=== PATIENT | male | born 1970 | race Caucasian/White ===

== ENCOUNTER 2016-06-28 21:33 | Inpatient (IN) ==
--- NOTE | 2016-06-28 21:47 | Emergency Department Note ---
Disposition Clinical Impression: Suicidal ideation Disposition: Admitted As Inpatient Condition: Good Psych HPI - General Chief Complaint: ED Psychiatric Symptoms Stated Complaint: SI/HI Time Seen by Provider: 06/28/16 21:45 Source: patient, EMS Mode of arrival: EMS Limitations: no limitations Nursing Notes Reviewed: Yes Vital Signs Reviewed: Yes - History of Present Illness Pt complaint: suicidal ideation Onset (ago): hour(s) Duration: constant History of similar episodes: Yes Improves with: none Worsens with: none Context: significant life stressor Alleged intoxication: No Associated Psychiatric Symptoms: depression, suicidal ideation, homicidal ideation Associated symptoms: Reports: other (Has had a cough for a couple days) Traumatic symptoms: denies traumatic injury Treatments prior to arrival: none Self harm or harm to others: admits thoughts of self harm, has plan, admits thoughts of harming others - Related Data Previous Rx's Medication Instructions Recorded BuPROPion SR (12 HR) [Wellbutrin 150 mg PO QAM #30 tablet.er 05/12/16 SR] HydrOXYzine Pamoate 50 mg PO QID PRN #120 capsule 05/12/16 Mirtazapine [Remeron] 15 mg PO HS #30 tablet 05/12/16 Quetiapine Fumarate [Seroquel] 400 mg PO HS #30 tablet 05/12/16 Allergies Allergy/AdvReac Type Severity Reaction Status Date / Time acetaminophen [From Tylenol] AdvReac Rash Verified 04/15/16 20:22 ibuprofen AdvReac Rash Verified 04/15/16 20:22 All systems ED: reviewed and negative except as stated. Constitutional: Denies: fever, chills ENT ED: Denies: ear pain, throat pain, congestion Cardiovascular: Denies: chest pain, palpitations Respiratory: Reports: cough. Denies: dyspnea Gastrointestinal: Reports: diarrhea. Denies: abdominal pain, nausea, vomiting Musculoskeletal: Denies: back pain Integumentary: Denies: rash Neurological: Denies: headache Past Medical History - Past Medical History Attestation: Yes The following information was validated with the patient. Source: patient, nursing notes reviewed Medical history: Reports: COPD, thyroid disease, other Surgical history: Reports: non-contributory Psychiatric history: Reports: anxiety, bipolar, panic disorder, prior suicide attempt, previous psychiatric hospitalization - Social History Smoking Status: Current every day smoker Smokeless Tobacco Status: No Alcohol use: Reports: occasionally Drug use: Reports: marijuana Physical Exam - General Limitations: no limitations General appearance: alert, in no apparent distress - Head Head exam: atraumatic, normocephalic - Eye Eye exam: Present: normal appearance, PERRL, EOMI - ENT ENT exam: normal exam, normal oropharynx, mucous membranes moist, normal external ear exam - Neck Neck exam: Present: normal inspection, full ROM. Absent: meningismus - Chest Chest inspection: Present: normal inspection, symmetric chest wall rise. Absent : tenderness - Respiratory Respiratory exam: Present: normal lung sounds bilaterally. Absent: respiratory distress, wheezes - Cardiovascular Cardiovascular exam: Present: regular rate, normal rhythm, normal heart sounds - Abdominal Exam Abdominal exam: Present: soft, Non-Tender - Extremities Exam Extremities exam: Present: normal inspection, full ROM. Absent: pedal edema - Back Exam Back exam: Present: normal inspection, full ROM - Neurological Exam Neurological exam: Present: alert, oriented X3 - Psychiatric Psychiatric exam: Present: normal affect, normal mood - Skin Skin exam: Present: warm, dry. Absent: rash Course Course Narrative: Patient presents with sort of suicidal ideation. He plans to cut his wrists. A friend stopped him earlier today from doing so. He reports also having homicidal ideations. He is calm and cooperative for us. Medically I find the patient doing a lot of coughing and he looks like he probably has a history of COPD. I will do a laboratory workup and included chest x-ray. Once he is medically cleared we can consult psychiatry to see him. At this point it is the end of my shift so I will be turning the case over to the night physician and night physician assistant editor. If labs and x-ray to find the patient should be medically cleared for psychiatry. Vital Signs Temperature 97.4 F L 06/28/16 21:35 Pulse Rate 109 06/28/16 21:35 Respiratory Rate 16 06/28/16 21:35 Blood Pressure 124/76 06/28/16 21:35 O2 Sat by Pulse Oximetry 96 06/28/16 21:35 Temperature 99 F 07/01/16 12:00 Pulse Rate 107 07/01/16 12:00 Respiratory Rate 18 07/01/16 12:00 Blood Pressure 98/70 07/01/16 12:00 O2 Sat by Pulse Oximetry 93 L 06/29/16 08:54 Oxygen Delivery Oxygen Delivery Room Air Psych - Lab Data Result diagrams: 06/28/16 21:48 06/28/16 21:48 Lab Results 06/28/16 06/28/16 06/28/16 Range/Units 21:48 21:48 21:54 WBC 6.9 (4.3-11.1) K/mcL RBC 5.38 (4.19-5.50) M/mcL Hgb 15.7 (12.9-16.9) g/dL Hct 44.8 (37.5-50.1) % MCV 83.3 (83.0-100.0) fL MCH 29.2 (28.0-33.3) pg MCHC 35.0 (31.6-35.5) g/dL RDW 13.7 (11.5-14.5) % Plt Count 270 (140-400) K/mcL MPV 8.8 L (9.4-12.4) fL Immature Gran % 0.3 (0-4) % Seg Neutrophils % 37.8 % Lymphocytes % 49.0 % Monocytes % 10.3 % Eosinophils % 2.0 % Basophils % 0.6 % Neutrophils # 2.6 (1.6-8.9) K/mcL Lymphocytes # 3.4 (0.6-4.6) K/mcL Monocytes # 0.7 (0.0-1.3) K/mcL Eosinophils # 0.1 (0.0-0.6) K/mcL Basophils # 0.0 (0.0-0.2) K/mcL Immature Plt Fraction 2.6 (1.1-6.1) % Sodium 144 (136-145) mEq/L Potassium 3.5 (3.5-4.5) mEq/L Chloride 111 H (98-109) mEq/L Carbon Dioxide 20 (19-29) mEq/L BUN 15 (8-26) mg/dL Creatinine 0.62 L (0.72-1.25) mg/dL Est GFR ( Amer) > 60 (> 60) Est GFR (Non-Af Amer) > 60 (> 60) BUN/Creatinine Ratio 24 (6-26) Glucose 97 (70-99) mg/dL Calculated Osmolality 299 (280-300) Calcium 8.7 (8.6-10.8) mg/dL Total Bilirubin 0.6 (0.2-1.2) mg/dL Direct Bilirubin 0.2 (0.0-0.5) mg/dL Indirect Bilirubin 0.4 (0.0-1.2) mg/dL AST 38 H (5-34) Units/L ALT 23 (0-55) Units/L Alkaline Phosphatase 97 (38-126) Units/L Serum Total Protein 7.9 (6.0-8.3) g/dL Albumin 3.7 (3.5-5.0) g/dL Globulin 4.2 H (2.4-3.5) g/dL Albumin/Globulin Ratio 0.9 L (1.1-2.2) TSH 0.000 L (0.350-4.840) mcIU/mL Urine Color Yellow (Yellow) Urine Clarity Clear (Clear) Urine pH 6.5 (5.0-8.0) pH Units Ur Specific [place] < 1.005 L (1.010-1.025) Urine Protein Negative (Neg-Trace) mg/dL Urine Glucose (UA) Normal (Normal) mg/dL Urine Ketones Negative (Negative) mg/dL Urine Blood Negative (Negative) Urine Nitrite Negative (Negative) Urine Bilirubin Negative (Negative) Urine Urobilinogen Normal (Normal) mg/dL Ur Leukocyte Esterase Negative (Negative) Salicylates < 5.0 L (15-30) mg/dL Urine Opiates Screen (Aexhgy=897) ng/mL Acetaminophen < 1.0 L (10-30) mcg/mL Ur Barbiturates Screen (Qjgipc=300) ng/mL Ur Phencyclidine Scrn (Cutoff=25) ng/mL Ur Amphetamines Screen (Hwsoxj=2035) ng/mL U Benzodiazepines Scrn (Ubycrx=789) ng/mL Urine Cocaine Screen (Cutoff= 300) ng/mL U Marijuana (THC) Screen (Cutoff = 50) ng/mL Ethyl Alcohol 302 H (0-10) mg/dL 06/28/16 06/29/16 Range/Units 21:55 08:07 WBC (4.3-11.1) K/mcL RBC (4.19-5.50) M/mcL Hgb (12.9-16.9) g/dL Hct (37.5-50.1) % MCV (83.0-100.0) fL MCH (28.0-33.3) pg MCHC (31.6-35.5) g/dL RDW (11.5-14.5) % Plt Count (140-400) K/mcL MPV (9.4-12.4) fL Immature Gran % (0-4) % Seg Neutrophils % % Lymphocytes % % Monocytes % % Eosinophils % % Basophils % % Neutrophils # (1.6-8.9) K/mcL Lymphocytes # (0.6-4.6) K/mcL Monocytes # (0.0-1.3) K/mcL Eosinophils # (0.0-0.6) K/mcL Basophils # (0.0-0.2) K/mcL Immature Plt Fraction (1.1-6.1) % Sodium (136-145) mEq/L Potassium (3.5-4.5) mEq/L Chloride (98-109) mEq/L Carbon Dioxide (19-29) mEq/L BUN (8-26) mg/dL Creatinine (0.72-1.25) mg/dL Est GFR ( Amer) (> 60) Est GFR (Non-Af Amer) (> 60) BUN/Creatinine Ratio (6-26) Glucose (70-99) mg/dL Calculated Osmolality (280-300) Calcium (8.6-10.8) mg/dL Total Bilirubin (0.2-1.2) mg/dL Direct Bilirubin (0.0-0.5) mg/dL Indirect Bilirubin (0.0-1.2) mg/dL AST (5-34) Units/L ALT (0-55) Units/L Alkaline Phosphatase (38-126) Units/L Serum Total Protein (6.0-8.3) g/dL Albumin (3.5-5.0) g/dL Globulin (2.4-3.5) g/dL Albumin/Globulin Ratio (1.1-2.2) TSH (0.350-4.840) mcIU/mL Urine Color (Yellow) Urine Clarity (Clear) Urine pH (5.0-8.0) pH Units Ur Specific [place] (1.010-1.025) Urine Protein (Neg-Trace) mg/dL Urine Glucose (UA) (Normal) mg/dL Urine Ketones (Negative) mg/dL Urine Blood (Negative) Urine Nitrite (Negative) Urine Bilirubin (Negative) Urine Urobilinogen (Normal) mg/dL Ur Leukocyte Esterase (Negative) Salicylates (15-30) mg/dL Urine Opiates Screen Negative (Bsklji=552) ng/mL Acetaminophen (10-30) mcg/mL Ur Barbiturates Screen Negative (Rwmzud=757) ng/mL Ur Phencyclidine Scrn Negative (Cutoff=25) ng/mL Ur Amphetamines Screen Negative (Siqxry=5292) ng/mL U Benzodiazepines Scrn Negative (Rjzpju=408) ng/mL Urine Cocaine Screen Negative (Cutoff= 300) ng/mL U Marijuana (THC) Screen Negative (Cutoff = 50) ng/mL Ethyl Alcohol 60 H (0-10) mg/dL Psychiatric Medical Clearance - Medical Clearance Checklist Medical History: No Social History Section defined Current Vitals: Last Vital Signs Temp 99 F 07/01/16 12:00 Pulse 107 07/01/16 12:00 Resp 18 07/01/16 12:00 BP 98/70 07/01/16 12:00 Pulse Ox 93 L 06/29/16 08:54 Abnormal Labs: Abnormal lab results MPV 8.8 fL (9.4-12.4) L 06/28/16 21:48 Chloride 111 mEq/L (98-109) H 06/28/16 21:48 Creatinine 0.62 mg/dL (0.72-1.25) L 06/28/16 21:48 AST 38 Units/L (5-34) H 06/28/16 21:48 Globulin 4.2 g/dL (2.4-3.5) H 06/28/16 21:48 Albumin/Globulin Ratio 0.9 (1.1-2.2) L 06/28/16 21:48 TSH 0.000 mcIU/mL (0.350-4.840) L 06/28/16 21:48 Ur Specific [place] < 1.005 (1.010-1.025) L 06/28/16 21:54 Salicylates < 5.0 mg/dL (15-30) L 06/28/16 21:48 Acetaminophen < 1.0 mcg/mL (10-30) L 06/28/16 21:48 Ethyl Alcohol 60 mg/dL (0-10) H 06/29/16 08:07 Statement of Medical Clearance: I have evaluated the patient, reviewed diagnostic information, and certify that the patient's medical condition is sufficiently stable that transfer to the psychiatric unit does not pose a significant risk of deterioration.
[2016-06-28 21:57] LABS: Basophils % 0.6 %; Eosinophils # 0.1 K/mcL (0.0-0.6); Hematocrit 44.8 % (37.5-50.1); Hemoglobin 15.7 g/dL (12.9-16.9); Immature Granulocytes % 0.3 % (0-4); Immature Platelets 2.6 % (1.1-6.1); Lymphocytes # 3.4 K/mcL (0.6-4.6); Mean Corpuscular Hemoglobin 29.2 pg (28.0-33.3); Mean Corpuscular Volume 83.3 fL (83.0-100.0); Mean Platelet Volume 8.8 fL (9.4-12.4); Monocytes # 0.7 K/mcL (0.0-1.3); Monocytes % 10.3 %; Neutrophils # 2.6 K/mcL (1.6-8.9); Platelet Count 270 K/mcL (140-400); Red Blood Count 5.38 M/mcL (4.19-5.50); Red Cell Distribution Width 13.7 % (11.5-14.5); Segmented Neutrophils % 37.8 %
[2016-06-28 22:02] LABS: Bilirubin,Urine Negative (Negative); Blood,Urine Negative (Negative); Clarity,Urine Clear (Clear); Color,Urine Yellow (Yellow); Glucose,Urine (UA) Normal (Normal); Ketones,Urine Negative (Negative); Leukocyte Esterase,Urine Negative (Negative); Nitrite,Urine Negative (Negative); PH,Urine 6.5 pH Units (5.0-8.0); Protein,Urine Negative (Neg-Trace); Specific Gravity,Urine < 1.005 (1.010-1.025); Urobilinogen,Urine Normal (Normal)
[2016-06-28 22:07] LABS: Amphetamine Screen,Urine Negative ng/mL (Cutoff=1000); Barbiturate Screen,Urine Negative ng/mL (Cutoff=200); Benzodiazepines Screen,Urine Negative ng/mL (Cutoff=200); Cannabinoid Screen,Urine Negative ng/mL (Cutoff = 50); Cocaine Screen,Urine Negative ng/mL (Cutoff= 300); Opiate Screen,Urine Negative ng/mL (Cutoff=300); Phencyclidine Screen,Urine Negative ng/mL (Cutoff=25)
[2016-06-28 22:11] LABS: Albumin 3.7 g/dL (3.5-5.0); Albumin/Globulin Ratio 0.9 (1.1-2.2); Alkaline Phosphatase 97 Units/L (38-126); Aspartate Amino Transferase 38 Units/L (5-34); BUN/Creatinine Ratio 24 (6-26); Bilirubin,Direct 0.2 mg/dL (0.0-0.5); Bilirubin,Indirect 0.4 mg/dL (0.0-1.2); Bilirubin,Total 0.6 mg/dL (0.2-1.2); Blood Urea Nitrogen 15 mg/dL (8-26); Calcium 8.7 mg/dL (8.6-10.8); Carbon Dioxide 20 mEq/L (19-29); Chloride 111 mEq/L (98-109); Globulin 4.2 g/dL (2.4-3.5); Glucose 97 mg/dL (70-99); Osmolality,Calculated 299 (280-300); Potassium 3.5 mEq/L (3.5-4.5); Sodium 144 mEq/L (136-145); Total Protein 7.9 g/dL (6.0-8.3); eGFR For African Americans > 60 (> 60); eGFR For Non-African Americans > 60 (> 60)
[2016-06-28 22:23] LABS: Alanine Aminotransferase 23 Units/L (0-55); Ethanol 302 mg/dL (0-10)
[2016-06-28 22:24] LABS: Salicylate < 5.0 mg/dL (15-30)
--- NOTE | 2016-06-29 00:06 | Emergency Department Note ---
START Narrative - START START: I, Gianni Richardson MD, personally performed a history and physical exam of the patient and discussed their management with the midlevel provicer, PAC/CAREER SERVICES REPRESENTATIVE. I reviewed the midlevel provider's note and agree with the documented findings, medical decision making, and plan of care. This patient was signed out at shift change from Dr. Ho. Please refer to his note for complete details of history and physical examination. At shift change the patient is awaiting lab results for medical clearance to be evaluated by the 1 A psych service. Now returned and patient has an alcohol level of 302. This will be repeated in the morning around 8 AM. Patient will be signed out to the [facility] team in the morning. Patient was also noted to have a TSH of 0.000. However he is asymptomatic and not having any symptoms of hyperthyroidism. On my exam his heart rate was 88. On examination patient is a well-developed well-nourished disheveled male in no acute distress. There is no cyanosis or diaphoresis. Breath sounds are equal bilaterally. Heart regular rate and rhythm. Abdomen soft with normal bowel sounds. Patient slept throughout the night with normal vital signs. No issues or complaints. [facility], Dr. Potts and Erika Stern mid-level provider.
[2016-06-29 00:14] LABS: Acetaminophen < 1.0 mcg/mL (10-30)
--- NOTE | 2016-06-29 05:54 | Emergency Department Note ---
START Narrative - START START: This patient was transferred to [place] from swing shift. Please see their earlier documentation for details. Prior to her transfer, patient was initially seen by a swing shift and evaluated. He is awaiting medical clearance for 1 evaluation or suicidal ideation. Past medical history includes substance abuse , and bipolar disorder. Medical workup showed blood alcohol level 302. He will be monitored until his alcohol level is appropriate for behavior health evaluation. He also had a TSH of 0.00. Review of medical records shows that he has a history of Graves' disease. He states the medic for hyperthyroidism at this time. PO Potassium was ordered by me for his potassium of 3.5. Vitals are stable. Patient has been resting comfortably in exam bed throughout the course of the night. Care of this patient will be transferred over to patient further evaluation and medical clearance for 1 and a evaluation. Planned ethanol redraw an approximately 2 hours. <Santosh Pineda P - Last Filed: 06/29/16 05:50> - START START: I, Gianni Richardson MD, personally performed a history and physical exam of the patient and discussed their management with the midlevel provicer, PAC/TREE DRILLER. I reviewed the midlevel provider's note and agree with the documented findings, medical decision making, and plan of care. Please refer to additional START note by me from this emergency department visit. <Gianni Richardson L - Last Filed: 06/29/16 06:48>
--- NOTE | 2016-06-29 11:21 | Emergency Department Note ---
Disposition Clinical Impression: Suicidal ideation Disposition: Admitted As Inpatient Condition: Good Referrals: NO,PCP [Primary Care Provider] - Forms: ED Satisfaction Letter Time of Disposition: 16:29 General Adult HPI - General Chief complaint: ED Psychiatric Symptoms Stated complaint: SI/HI Time Seen by Provider: 06/28/16 21:45 Source: patient, EMS Mode of arrival: EMS Limitations: no limitations - History of Present Illness Pain Scale: 10 - Related Data Previous Rx's Medication Instructions Recorded Methimazole [Tapazole] 10 mg PO DAILY #60 tablet 03/15/16 Albuterol Sulfate [Albuterol 2 puff IH Q4HR PRN #1 hfa.aer.ad 04/15/16 Inhaler] BuPROPion SR (12 HR) [Wellbutrin 150 mg PO QAM #30 tablet.er 05/12/16 SR] HydrOXYzine Pamoate 50 mg PO QID PRN #120 capsule 05/12/16 Mirtazapine [Remeron] 15 mg PO HS #30 tablet 05/12/16 Quetiapine Fumarate [Seroquel] 400 mg PO HS #30 tablet 05/12/16 Benzonatate [Tessalon] 100 mg PO TID #30 capsule 06/04/16 Brompheniramine/Pseudoephed/Dm 5 ml PO Q6H #240 syrup 06/04/16 [Bromfed Dm Cough Syrup] HydrOXYzine 10 mg PO TID #30 tablet 06/04/16 Levofloxacin [Levaquin] 750 mg PO DAILY #10 tablet 06/04/16 PredniSONE 20 mg PO BIDWM #10 tablet 06/04/16 Allergies Allergy/AdvReac Type Severity Reaction Status Date / Time acetaminophen [From Tylenol] AdvReac Rash Verified 04/15/16 20:22 ibuprofen AdvReac Rash Verified 04/15/16 20:22 Constitutional: Denies: fever, chills ENT ED: Denies: ear pain, throat pain, congestion Cardiovascular: Denies: chest pain, palpitations Respiratory: Reports: cough. Denies: dyspnea Gastrointestinal: Reports: diarrhea. Denies: abdominal pain, nausea, vomiting Musculoskeletal: Denies: back pain Integumentary: Denies: rash Neurological: Denies: headache Past Medical History - Past Medical History Medical history: Reports: COPD, thyroid disease, other Surgical history: Reports: non-contributory Psychiatric history: Reports: anxiety, bipolar, panic disorder, prior suicide attempt, previous psychiatric hospitalization - Social History Smoking Status: Current every day smoker Smokeless Tobacco Status: No Alcohol use: Reports: occasionally Drug use: Reports: marijuana Physical Exam - General Limitations: no limitations General appearance: alert, in no apparent distress Course Vital Signs Temperature 97.4 F L 06/28/16 21:35 Pulse Rate 109 06/28/16 21:35 Respiratory Rate 16 06/28/16 21:35 Blood Pressure 124/76 06/28/16 21:35 O2 Sat by Pulse Oximetry 96 06/28/16 21:35 Temperature 97.6 F 06/29/16 08:54 Pulse Rate 97 06/29/16 08:54 Respiratory Rate 18 06/29/16 08:54 Blood Pressure 115/63 06/29/16 08:54 O2 Sat by Pulse Oximetry 93 L 06/29/16 08:54 Oxygen Delivery Oxygen Delivery Room Air Medical Decision Making - Lab Data Result diagrams: 06/28/16 21:48 06/28/16 21:48 Lab Results 06/28/16 06/28/16 06/28/16 Range/Units 21:48 21:48 21:54 WBC 6.9 (4.3-11.1) K/mcL RBC 5.38 (4.19-5.50) M/mcL Hgb 15.7 (12.9-16.9) g/dL Hct 44.8 (37.5-50.1) % MCV 83.3 (83.0-100.0) fL MCH 29.2 (28.0-33.3) pg MCHC 35.0 (31.6-35.5) g/dL RDW 13.7 (11.5-14.5) % Plt Count 270 (140-400) K/mcL MPV 8.8 L (9.4-12.4) fL Immature Gran % 0.3 (0-4) % Seg Neutrophils % 37.8 % Lymphocytes % 49.0 % Monocytes % 10.3 % Eosinophils % 2.0 % Basophils % 0.6 % Neutrophils # 2.6 (1.6-8.9) K/mcL Lymphocytes # 3.4 (0.6-4.6) K/mcL Monocytes # 0.7 (0.0-1.3) K/mcL Eosinophils # 0.1 (0.0-0.6) K/mcL Basophils # 0.0 (0.0-0.2) K/mcL Immature Plt Fraction 2.6 (1.1-6.1) % Sodium 144 (136-145) mEq/L Potassium 3.5 (3.5-4.5) mEq/L Chloride 111 H (98-109) mEq/L Carbon Dioxide 20 (19-29) mEq/L BUN 15 (8-26) mg/dL Creatinine 0.62 L (0.72-1.25) mg/dL Est GFR ( Amer) > 60 (> 60) Est GFR (Non-Af Amer) > 60 (> 60) BUN/Creatinine Ratio 24 (6-26) Glucose 97 (70-99) mg/dL Calculated Osmolality 299 (280-300) Calcium 8.7 (8.6-10.8) mg/dL Total Bilirubin 0.6 (0.2-1.2) mg/dL Direct Bilirubin 0.2 (0.0-0.5) mg/dL Indirect Bilirubin 0.4 (0.0-1.2) mg/dL AST 38 H (5-34) Units/L ALT 23 (0-55) Units/L Alkaline Phosphatase 97 (38-126) Units/L Serum Total Protein 7.9 (6.0-8.3) g/dL Albumin 3.7 (3.5-5.0) g/dL Globulin 4.2 H (2.4-3.5) g/dL Albumin/Globulin Ratio 0.9 L (1.1-2.2) TSH 0.000 L (0.350-4.840) mcIU/mL Urine Color Yellow (Yellow) Urine Clarity Clear (Clear) Urine pH 6.5 (5.0-8.0) pH Units Ur Specific [place] < 1.005 L (1.010-1.025) Urine Protein Negative (Neg-Trace) mg/dL Urine Glucose (UA) Normal (Normal) mg/dL Urine Ketones Negative (Negative) mg/dL Urine Blood Negative (Negative) Urine Nitrite Negative (Negative) Urine Bilirubin Negative (Negative) Urine Urobilinogen Normal (Normal) mg/dL Ur Leukocyte Esterase Negative (Negative) Salicylates < 5.0 L (15-30) mg/dL Urine Opiates Screen (Cwwfyj=429) ng/mL Acetaminophen < 1.0 L (10-30) mcg/mL Ur Barbiturates Screen (Nfusya=275) ng/mL Ur Phencyclidine Scrn (Cutoff=25) ng/mL Ur Amphetamines Screen (Zzdjxs=3804) ng/mL U Benzodiazepines Scrn (Xazbob=537) ng/mL Urine Cocaine Screen (Cutoff= 300) ng/mL U Marijuana (THC) Screen (Cutoff = 50) ng/mL Ethyl Alcohol 302 H (0-10) mg/dL 06/28/16 06/29/16 Range/Units 21:55 08:07 WBC (4.3-11.1) K/mcL RBC (4.19-5.50) M/mcL Hgb (12.9-16.9) g/dL Hct (37.5-50.1) % MCV (83.0-100.0) fL MCH (28.0-33.3) pg MCHC (31.6-35.5) g/dL RDW (11.5-14.5) % Plt Count (140-400) K/mcL MPV (9.4-12.4) fL Immature Gran % (0-4) % Seg Neutrophils % % Lymphocytes % % Monocytes % % Eosinophils % % Basophils % % Neutrophils # (1.6-8.9) K/mcL Lymphocytes # (0.6-4.6) K/mcL Monocytes # (0.0-1.3) K/mcL Eosinophils # (0.0-0.6) K/mcL Basophils # (0.0-0.2) K/mcL Immature Plt Fraction (1.1-6.1) % Sodium (136-145) mEq/L Potassium (3.5-4.5) mEq/L Chloride (98-109) mEq/L Carbon Dioxide (19-29) mEq/L BUN (8-26) mg/dL Creatinine (0.72-1.25) mg/dL Est GFR ( Amer) (> 60) Est GFR (Non-Af Amer) (> 60) BUN/Creatinine Ratio (6-26) Glucose (70-99) mg/dL Calculated Osmolality (280-300) Calcium (8.6-10.8) mg/dL Total Bilirubin (0.2-1.2) mg/dL Direct Bilirubin (0.0-0.5) mg/dL Indirect Bilirubin (0.0-1.2) mg/dL AST (5-34) Units/L ALT (0-55) Units/L Alkaline Phosphatase (38-126) Units/L Serum Total Protein (6.0-8.3) g/dL Albumin (3.5-5.0) g/dL Globulin (2.4-3.5) g/dL Albumin/Globulin Ratio (1.1-2.2) TSH (0.350-4.840) mcIU/mL Urine Color (Yellow) Urine Clarity (Clear) Urine pH (5.0-8.0) pH Units Ur Specific [place] (1.010-1.025) Urine Protein (Neg-Trace) mg/dL Urine Glucose (UA) (Normal) mg/dL Urine Ketones (Negative) mg/dL Urine Blood (Negative) Urine Nitrite (Negative) Urine Bilirubin (Negative) Urine Urobilinogen (Normal) mg/dL Ur Leukocyte Esterase (Negative) Salicylates (15-30) mg/dL Urine Opiates Screen Negative (Vylxou=774) ng/mL Acetaminophen (10-30) mcg/mL Ur Barbiturates Screen Negative (Artuth=471) ng/mL Ur Phencyclidine Scrn Negative (Cutoff=25) ng/mL Ur Amphetamines Screen Negative (Ppxtji=0300) ng/mL U Benzodiazepines Scrn Negative (Sptmoz=231) ng/mL Urine Cocaine Screen Negative (Cutoff= 300) ng/mL U Marijuana (THC) Screen Negative (Cutoff = 50) ng/mL Ethyl Alcohol 60 H (0-10) mg/dL Attestation Statement - Attestation Attestation: Care assumed from [place] nurse practitioner at 11 AM pending [address]A [address] place. Patient sleeping at the time of my exam 16:28: Dr. Ruiz accepts admission to 1A
[2016-06-29] MEDS ORDERED: Haloperidol Lactate 5 MG/ML VIAL IM PRN (18:17)
[2016-06-29] MEDS ORDERED: Mag Hydrox/Al Hydrox/Simeth 30 ML UDC PO PRN (18:17)
[2016-06-29] MEDS ORDERED: MOM Conc 10 ML UD.LIQ PO PRN (18:17)
[2016-06-29] MEDS ORDERED: hydrOXYzine pamoate 25 MG CAPSULE PO PRN (18:34)
[2016-06-29] MEDS: diazePAM 10 MG TABLET PO SCH ×2 (18:58→22:20)
[2016-06-29] MEDS: Nicotine 21 MG PATCH.TD24 TD SCH (19:00)
[2016-06-29] MEDS ORDERED: Mirtazapine 15 MG TABLET PO SCH (21:00)
[2016-06-30] MEDS: diazePAM 10 MG TABLET PO SCH ×6 (02:39→19:19)
[2016-06-30] MEDS: Nicotine 21 MG PATCH.TD24 TD SCH (08:47)
--- NOTE | 2016-06-30 11:41 | Psychiatry History & Physical ---
Date of Encounter: 06/30/16 Time of Encounter: 11:20 History of Present Illness Patient Stated Chief Complaint: I am depressed and suicidal Medicare Admission Attestation: For traditional Medicare patients the provided hospital inpatient services are reasonable and necessary and in the case of services not specified as inpatient -only under 42 CFR 419.22 (n), that they are appropriately provided as inpatient services in accordance 42 CFR 412.3. For Critical Access Hospital the patient may reasonably be expected to be discharged or transferred to a hospital within 96 hours after admission to the Critical Access Hospital. Admitted From: Emergency Dept Plans for Post Hospital Care: Home History of Present Illness: Mr. Owen is a 46 year old male Was well known to us from prior hospitalization he was recently discharged from our facility approximately 6 weeks ago. Patient reported that he did well up until 2 weeks ago when he relapsed on alcohol and since then he has been drinking heavily has been noticing a relapse of his depressive symptoms with LESS helpless feelings mood swings irritability and anger outbursts recurrent suicidal thoughts and ideations. Patient reported that he is making bad choices and decisions and has been contemplating on ending his life. He was unable to contract for safety was posing a threat to himself was intoxicated and it was decided to hospitalize him for safety concerns. Past Med Surg Social Fam HX - Past Medical History Medical history: COPD, thyroid disease, other - Past Psychiatric History Psychiatric history: Reports: depression, previous psychiatric hospitalization Past psychiatric history details: The patient has multiple prior psychiatric hospitalization his last hospitalization was with us approximately 6 weeks ago he reportedly has been compliant with his medications but relapsed on alcohol and has been drinking heavily since last 2 weeks Family psychiatric history: Yes Family Psychiatric History Details: Uncle has schizophrenia Family History of Suicide: Completed Family Suicide History Details: Uncle completed suicide - Past Surgical History Surgical History: non-contributory - Social History Smoking Status: Current every day smoker Smokeless Tobacco Status: No Alcohol use: heavy, recent Drug use: marijuana, other Occupational status: disabled Current living situation: Home Activity Level: Independent ambulation Recent Out of Country Travel Within the Last 8 Weeks: No Exposure or Possible Exposure to Illness During Travel: No Additional social history: Patient is currently he is on Social Security disability. He reported that he has 6 children from 2 prior relationships. He denies any current legal issues. Medications & Allergies BuPROPion SR (12 HR) [Wellbutrin SR] 150 mg PO QAM #30 tablet.er 05/12/16 [Rx] HydrOXYzine Pamoate 50 mg PO QID PRN #120 capsule 05/12/16 [Rx] Mirtazapine [Remeron] 15 mg PO HS #30 tablet 05/12/16 [Rx] Quetiapine Fumarate [Seroquel] 400 mg PO HS #30 tablet 05/12/16 [Rx] Allergies acetaminophen [From Tylenol] Adverse Reaction (Verified 04/15/16 20:22) Rash ibuprofen Adverse Reaction (Verified 04/15/16 20:22) Rash Review of Systems Psychiatric: Reports: depression, anxiety, abnormal sleep pattern, suicidal ideation, hopelessness, irritability, mood swings Mental Status Exam Patient orientation: Yes Person, Yes Time, Yes Place Level of alertness: Alert Patient appearance: Unkempt, Disheveled Behavior: nervous, anxious Psychomotor activity: Slowed Eye contact: Maintains Eye Contact Mood description: Depressed, Anxious Affect description: constricted, dysphoric Speech pattern: Normal rate, Normal rhythm, Normal tone Speech volume: Normal Thought process: Linear, Goal Oriented Thought content: Yes Suicidal ideation Perceptual disturbances: No Auditory hallucinations, No Visual hallucinations Attention span: Capable of Focused Attention Intelligence estimate: Average Judgment: Limited Insight: Minimal Results - Vital Signs Vital signs: Temp Pulse Resp BP Pulse Ox 97.4 F L 75 14 89/59 93 L 06/30/16 09:00 06/30/16 09:00 06/30/16 09:00 06/30/16 09:00 06/29/16 08:54 - Labs Labs: Laboratory Last Values WBC 6.9 K/mcL (4.3-11.1) 06/28/16 21:48 RBC 5.38 M/mcL (4.19-5.50) 06/28/16 21:48 Hgb 15.7 g/dL (12.9-16.9) 06/28/16 21:48 Hct 44.8 % (37.5-50.1) 06/28/16 21:48 MCV 83.3 fL (83.0-100.0) 06/28/16 21:48 MCH 29.2 pg (28.0-33.3) 06/28/16 21:48 MCHC 35.0 g/dL (31.6-35.5) 06/28/16 21:48 RDW 13.7 % (11.5-14.5) 06/28/16 21:48 Plt Count 270 K/mcL (140-400) 06/28/16 21:48 MPV 8.8 fL (9.4-12.4) L 06/28/16 21:48 Immature Gran % 0.3 % (0-4) 06/28/16 21:48 Seg Neutrophils % 37.8 % 06/28/16 21:48 Lymphocytes % 49.0 % 06/28/16 21:48 Monocytes % 10.3 % 06/28/16 21:48 Eosinophils % 2.0 % 06/28/16 21:48 Basophils % 0.6 % 06/28/16 21:48 Neutrophils # 2.6 K/mcL (1.6-8.9) 06/28/16 21:48 Lymphocytes # 3.4 K/mcL (0.6-4.6) 06/28/16 21:48 Monocytes # 0.7 K/mcL (0.0-1.3) 06/28/16 21:48 Eosinophils # 0.1 K/mcL (0.0-0.6) 06/28/16 21:48 Basophils # 0.0 K/mcL (0.0-0.2) 06/28/16 21:48 Immature Plt Fraction 2.6 % (1.1-6.1) 06/28/16 21:48 Sodium 144 mEq/L (136-145) 06/28/16 21:48 Potassium 3.5 mEq/L (3.5-4.5) 06/28/16 21:48 Chloride 111 mEq/L (98-109) H 06/28/16 21:48 Carbon Dioxide 20 mEq/L (19-29) 06/28/16 21:48 BUN 15 mg/dL (8-26) 06/28/16 21:48 Creatinine 0.62 mg/dL (0.72-1.25) L 06/28/16 21:48 Est GFR ( Amer) > 60 (> 60) 06/28/16 21:48 Est GFR (Non-Af Amer) > 60 (> 60) 06/28/16 21:48 BUN/Creatinine Ratio 24 (6-26) 06/28/16 21:48 Glucose 97 mg/dL (70-99) 06/28/16 21:48 Calculated Osmolality 299 (280-300) 06/28/16 21:48 Calcium 8.7 mg/dL (8.6-10.8) 06/28/16 21:48 Total Bilirubin 0.6 mg/dL (0.2-1.2) 06/28/16 21:48 Direct Bilirubin 0.2 mg/dL (0.0-0.5) 06/28/16 21:48 Indirect Bilirubin 0.4 mg/dL (0.0-1.2) 06/28/16 21:48 AST 38 Units/L (5-34) H 06/28/16 21:48 ALT 23 Units/L (0-55) 06/28/16 21:48 Alkaline Phosphatase 97 Units/L (38-126) 06/28/16 21:48 Serum Total Protein 7.9 g/dL (6.0-8.3) 06/28/16 21:48 Albumin 3.7 g/dL (3.5-5.0) 06/28/16 21:48 Globulin 4.2 g/dL (2.4-3.5) H 06/28/16 21:48 Albumin/Globulin Ratio 0.9 (1.1-2.2) L 06/28/16 21:48 TSH 0.000 mcIU/mL (0.350-4.840) L 06/28/16 21:48 Urine Color Yellow (Yellow) 06/28/16 21:54 Urine Clarity Clear (Clear) 06/28/16 21:54 Urine pH 6.5 pH Units (5.0-8.0) 06/28/16 21:54 Ur Specific Lebeau < 1.005 (1.010-1.025) L 06/28/16 21:54 Urine Protein Negative mg/dL (Neg-Trace) 06/28/16 21:54 Urine Glucose (UA) Normal mg/dL (Normal) 06/28/16 21:54 Urine Ketones Negative mg/dL (Negative) 06/28/16 21:54 Urine Blood Negative (Negative) 06/28/16 21:54 Urine Nitrite Negative (Negative) 06/28/16 21:54 Urine Bilirubin Negative (Negative) 06/28/16 21:54 Urine Urobilinogen Normal mg/dL (Normal) 06/28/16 21:54 Ur Leukocyte Esterase Negative (Negative) 06/28/16 21:54 Salicylates < 5.0 mg/dL (15-30) L 06/28/16 21:48 Urine Opiates Screen Negative ng/mL (Huegjt=438) 06/28/16 21:55 Acetaminophen < 1.0 mcg/mL (10-30) L 06/28/16 21:48 Ur Barbiturates Screen Negative ng/mL (Eucuha=923) 06/28/16 21:55 Ur Phencyclidine Scrn Negative ng/mL (Cutoff=25) 06/28/16 21:55 Ur Amphetamines Screen Negative ng/mL (Iqmzni=5962) 06/28/16 21:55 U Benzodiazepines Scrn Negative ng/mL (Lponaa=509) 06/28/16 21:55 Urine Cocaine Screen Negative ng/mL (Cutoff= 300) 06/28/16 21:55 U Marijuana (THC) Screen Negative ng/mL (Cutoff = 50) 06/28/16 21:55 Ethyl Alcohol 60 mg/dL (0-10) H 06/29/16 08:07 Assessment and Plan (1) MDD (major depressive disorder), recurrent severe, without psychosis Current visit: Yes Status: Acute Plan: Admit inpatient for safety and stabilization, Close observation, Suicide Precautions per unit protocol, Encourage participation in unit milieu, Group Therapy, Monitor sleep, Monitor appetite Additional Plan: Patient's Wellbutrin will be discontinued since it will increase his risk of seizures as patient is already going through withdrawal from alcohol. We will increase the Remeron to 30 mg at bedtime for depression and continue the Seroquel 400 mg at bedtime for mood stabilization and adjunct treatment for depression Risks, benefits, side effects, alternatives discussed w/pt: Yes Patient agreeable to treatment: Yes Plans for Post Hospital Care: Home Estimated Length of Stay (Days): 3 (2) Alcohol dependence Current visit: No Status: Acute Plan: Admit inpatient for safety and stabilization, Close observation, Suicide Precautions per unit protocol, Encourage participation in unit milieu, Group Therapy, Monitor sleep, Monitor appetite Additional Plan: We will detox the patient using Valium taper for alcohol withdrawal. Patient is the counselor extensively regarding his alcohol use and his psychological and physiological impact and will be helped to identify triggers and develop a relapse prevention plan Risks, benefits, side effects, alternatives discussed w/pt: Yes Patient agreeable to treatment: Yes Plans for Post Hospital Care: Home Estimated Length of Stay (Days): 3 Qualifiers: Substance use status: in withdrawal Complication of substance-induced condition: uncomplicated Qualified Code(s): F10.230 - Alcohol dependence with withdrawal, uncomplicated
[2016-06-30] MEDS: Mirtazapine 15 MG TABLET PO SCH (20:26)
[2016-06-30] MEDS ORDERED: diazePAM 5 MG TABLET PO ONE (21:30)
[2016-07-01] MEDS: diazePAM 10 MG TABLET PO SCH ×2 (00:39→06:23)
[2016-07-01] MEDS: Nicotine 21 MG PATCH.TD24 TD SCH (08:27)
--- NOTE | 2016-07-01 11:45 | Psychiatry Progress Note ---
Date of Encounter: 07/01/16 Time of Encounter: 11:31 Subjective Interval history: Patient seen and interviewed. Patient is not doing well. Appears very confused and lethargic. The patient has been having withdrawal symptoms. Patient is endorsing restlessness hopeless helpless feelings and is unable to verbalize a safety plan. Patient is counseled extensively regarding his drinking and ended psychological and physiological impact and was encouraged to start working on relapse prevention and safety plan. Review of Systems Psychiatric: Reports: depression, anxiety, abnormal sleep pattern, suicidal ideation, hopelessness, irritability, mood swings Objective: Exam Patient orientation: Yes Person, Yes Time, Yes Place Level of alertness: Alert Patient appearance: Unkempt, Disheveled Behavior: nervous, anxious Psychomotor activity: Slowed Eye contact: Maintains Eye Contact Mood description: Depressed, Anxious Affect description: constricted, dysphoric Speech pattern: Normal rate, Normal rhythm, Normal tone Speech volume: Normal Thought process: Linear, Goal Oriented Thought content: Yes Suicidal ideation Perceptual disturbances: No Auditory hallucinations, No Visual hallucinations Judgment: Limited Insight: Minimal Results - Vital Signs Vital Signs: Temp Pulse Resp BP Pulse Ox 97.8 F 83 14 107/62 93 L 07/01/16 06:00 07/01/16 06:00 07/01/16 06:00 07/01/16 06:00 06/29/16 08:54 Assessment and Plan (1) MDD (major depressive disorder), recurrent severe, without psychosis Current visit: Yes Status: Acute Plan: Continue hospitalization, Close observation, Suicide Precautions per unit protocol, Encourage participation in unit milieu, Group Therapy, Monitor sleep, Monitor appetite Additional Plan: Decrease Seroquel 200 mg at bedtime continue with Remeron 30 mg at bedtime Risks, benefits, side effects, alternatives discussed w/pt: Yes Patient agreeable to treatment: Yes (2) Alcohol dependence Current visit: No Status: Acute Plan: Continue hospitalization, Close observation, Suicide Precautions per unit protocol, Encourage participation in unit milieu, Group Therapy, Monitor sleep, Monitor appetite Additional Plan: We will decrease Valium to 5 mg twice a day. We will also decrease Seroquel to 200 mg at bedtime since patient is groggy and drowsy in the am Risks, benefits, side effects, alternatives discussed w/pt: Yes Patient agreeable to treatment: Yes Qualifiers: Substance use status: in withdrawal Complication of substance-induced condition: uncomplicated Qualified Code(s): F10.230 - Alcohol dependence with withdrawal, uncomplicated Consult Discharge Plan - Plan Referrals: NO,PCP [Primary Care Provider] -
[2016-07-01] MEDS ORDERED: diazePAM 5 MG TABLET PO ONE (15:19)
[2016-07-01] MEDS ORDERED: traMADol 50 MG TABLET PO PRN (16:25)
[2016-07-01] MEDS ORDERED: diazePAM 10 MG TABLET PO SCH (18:32)
[2016-07-01] MEDS: diazePAM 5 MG TABLET PO SCH (20:44)
[2016-07-01] MEDS: Mirtazapine 15 MG TABLET PO SCH (22:13)
[2016-07-02] MEDS: diazePAM 5 MG TABLET PO SCH (08:15)
[2016-07-02] MEDS: Nicotine 21 MG PATCH.TD24 TD SCH (08:15)
--- NOTE | 2016-07-02 11:57 | Psychiatry Progress Note ---
Date of Encounter: 07/02/16 Time of Encounter: 11:55 Subjective Interval history: Patient is here for follow-up. I reviewed records and nursing report. Patient is not doing well physically showing lethargy and confusion is medical status seem unstable with long history of alcohol dependence on possibility of withdrawal delirium. I recommended medical consultation and he is going to be transferred to the medical floor for further treatment and will be followed as he stay on the medical for stabilization. Review of Systems Psychiatric: Reports: anxiety, abnormal sleep pattern, auditory hallucinations, confusion, difficulty concentrating, hopelessness, irritability Objective: Exam Patient orientation: Yes Person Level of alertness: Sedated Patient appearance: Unkempt, Disheveled Behavior: nervous, anxious Psychomotor activity: Slowed Eye contact: Minimal Contact Mood description: Anxious Affect description: constricted, dysphoric Speech pattern: Disorganized, Slurred, Garbled Speech volume: Soft/Quiet Thought process: Thought Blocking, Disorganized, Slowed Thinking Thought content: Yes Suicidal ideation Perceptual disturbances: No Auditory hallucinations, No Visual hallucinations Judgment: Limited Insight: Minimal Results - Vital Signs Vital Signs: Temp Pulse Resp BP Pulse Ox 99.3 F 116 24 91/62 93 L 07/02/16 08:45 07/02/16 08:45 07/02/16 08:45 07/02/16 08:45 06/29/16 08:54 Assessment and Plan (1) Alcohol withdrawal Current visit: Yes Status: Acute Plan: Continue hospitalization, Close observation, Suicide Precautions per unit protocol, Encourage participation in unit milieu, Group Therapy, Monitor sleep, Monitor appetite Qualifiers: Complication of substance-induced condition: with delirium Qualified Code(s ): F10.231 - Alcohol dependence with withdrawal delirium Consult Discharge Plan - Plan Instructions: Depression (DC) Referrals: [facility] [Outside] (Your counselor, Martha Otero, is out of the office until 07/04/2016. She will contact you directly to arrange your next follow-up appointment when she returns to the office.) Xavi Christensen PAC [Physician Keeper Helper] - 07/11/16 3:00 pm (The above appointment is with SHARA Glover at [facility]. This appointment is to establish you with a primary care provider. If you have needs related to psychiatric medication and/or Vivitrol, you will be assessed for these as well. Please arrive 15 minutes early to complete paperwork. Please bring your insurance card, photo ID and list of current medications to your first appointment.)
[2016-07-02 12:01] VITALS: BP 85/52
[2016-07-02] MEDS ORDERED: diazePAM 10 MG TABLET PO SCH (18:45)
--- NOTE | 2016-07-16 14:55 | Discharge Summary ---
Date of Encounter: 07/02/16 Time of Encounter: 12:00 Diagnosis - Discharge Diagnosis (1) Alcohol withdrawal Priority: Secondary Status: Resolved Qualifiers: Complication of substance-induced condition: with delirium Qualified Code(s ): F10.231 - Alcohol dependence with withdrawal delirium (2) Alcohol dependence Priority: Primary Status: Acute Qualifiers: Substance use status: in withdrawal Complication of substance-induced condition: with delirium Qualified Code(s): F10.231 - Alcohol dependence with withdrawal delirium Medications - Discharge Medications Atenolol [Tenormin] 12.5 mg PO DAILY tablet 07/05/16 [Rx] Azithromycin [Zithromax] 1,200 mg PO QWEEK tablet 07/05/16 [Rx] Methimazole [Tapazole] 5 mg PO TID tablet 07/05/16 [Rx] Omeprazole [PriLOSEC] 20 mg PO DAILY@0630 capsule. 07/05/16 [Rx] Sulfamethoxazole/Trimeth DS [Bactrim Ds] 1 each PO DAILY tablet 07/05/16 [Rx] Tramadol HCl [Ultram] 50 mg PO BID PRN 07/05/16 [History] BuPROPion SR (12 HR) [Wellbutrin SR] 150 mg PO QAM #30 tablet.er 07/06/16 [Rx] HydrOXYzine Pamoate 50 mg PO QID PRN #120 capsule 07/06/16 [Rx] LORazepam [Ativan] 0.5 mg PO HS PRN #30 tablet 07/06/16 [Rx] Mirtazapine [Remeron] 30 mg PO HS #60 tablet 07/06/16 [Rx] Quetiapine Fumarate [Seroquel] 200 mg PO HS #60 tablet 07/06/16 [Rx] Allergies acetaminophen [From Tylenol] Adverse Reaction (Verified 04/15/16 20:22) Rash ibuprofen Adverse Reaction (Verified 04/15/16 20:22) Rash Provider Date of admission: 06/29/16 16:37 Primary care physician: PCP NO Consults: 06/29/16 18:17 Consult to Pastoral Services [CONS] Routine Comment: 07/02/16 09:58 Consult to Hospitalist [CONS] Stat Consulting Provider: Hospitalist [place] Reason for Consult: Poss D/T Time Notified: 10:00 Call Completed: Yes Discharging clinician: Ramírez Jacobs Assessment and Plan - Patient/Caregiver Discharge Instructions Diet: regular diet - Follow up Plan Follow up with: [facility] [Outside] (Your counselor, Martha Otero, is out of the office until 07/04/2016. She will contact you directly to arrange your next follow-up appointment when she returns to the office.) Xavi Christensen, PAC [Physician Chemical Tester] - 07/11/16 3:00 pm (The above appointment is with SHARA Glover at [facility]. This appointment is to establish you with a primary care provider. If you have needs related to psychiatric medication and/or Vivitrol, you will be assessed for these as well. Please arrive 15 minutes early to complete paperwork. Please bring your insurance card, photo ID and list of current medications to your first appointment.) Disposition: Home, Self-Care Hospital Course Hospital course: Mr. Owen is a 46 year old male admitted with bipolar disorder and alcohol dependence and withdrawal. His condition is unstable and medicine was consulted and patient would be transferred to medical floor to monitor him for possible alcohol withdrawal delirium and he will be followed after stabilization. - Time Spent with Patient Total time spent providing and/or coordinating discharge services: Less than 30 minutes Quality - Multiple Antipsychotics Patient discharged on 2 or more antipsychotic medications: No Procedures - Procedures Procedures: Medication Management, Crisis Stabilization, Supportive Therapy, Group Therapy, Psychoeducational Therapy Mental Status Exam - Mental Status Exam Patient orientation: Yes Person Level of alertness: Sedated Patient appearance: Unkempt, Disheveled Behavior: nervous, anxious Psychomotor activity: Slowed Eye contact: Minimal Contact Mood description: Anxious Affect description: constricted, dysphoric Speech pattern: Disorganized, Slurred, Garbled Speech Volume: Soft/Quiet Thought process: Thought Blocking, Disorganized, Slowed Thinking Thought Content: Yes Suicidal ideation Perceptual Disturbances: No Auditory hallucinations, No Visual hallucinations Judgment: Limited Insight: Minimal
== END 2016-07-02 12:35 | disposition home or self-care (01) | DRG 751 ==
LOC: EMEROO 21:33 → 1ANU 06-29 16:37 → SUATTDRO 06-29 16:37 → 1ANU 06-29 17:00
PROVIDERS: ADMIT Psychiatry & Neurology Psychiatry; ATTEND Psychiatry & Neurology Psychiatry

== ENCOUNTER 2016-07-02 10:41 | Inpatient (IN) ==
[2016-07-02] MEDS ORDERED: Naloxone 0.4 MG/ML INJ IVP PRN (11:00)
[2016-07-02] MEDS ORDERED: *HR* LORazepam 2 MG/ML VIAL IVP PRN (11:00)
[2016-07-02] MEDS ORDERED: Ondansetron 4 MG/2 ML VIAL IVP PRN (11:00)
--- NOTE | 2016-07-02 11:13 | Internal Med History&Physical ---
Date of Encounter: 07/02/16 Time of Encounter: 09:30 Internal Medicine - H&P: HPI Admitted From: Home History of present illness: Mr. Owen is a 46 year old male Past Med Surg Social Fam HX - Past Medical History Medical history: COPD, thyroid disease, other Psychiatric history: anxiety, bipolar, panic disorder, prior suicide attempt, previous psychiatric hospitalization - Past Surgical History Surgical History: non-contributory - Social History Smoking Status: Current every day smoker Smokeless Tobacco Status: No Alcohol use: occasionally Drug use: marijuana Internal Medicine - H&P: Meds BuPROPion SR (12 HR) [Wellbutrin SR] 150 mg PO QAM #30 tablet.er 05/12/16 [Rx] HydrOXYzine Pamoate 50 mg PO QID PRN #120 capsule 05/12/16 [Rx] Mirtazapine [Remeron] 15 mg PO HS #30 tablet 05/12/16 [Rx] Quetiapine Fumarate [Seroquel] 400 mg PO HS #30 tablet 05/12/16 [Rx] Allergies acetaminophen [From Tylenol] Adverse Reaction (Verified 04/15/16 20:22) Rash ibuprofen Adverse Reaction (Verified 04/15/16 20:22) Rash All Systems PM: A 10-system review of systems was performed and is negative for pertinent findings except as documented above in the HPI.
--- NOTE | 2016-07-02 11:27 | Internal Med History&Physical ---
Date of Encounter: 07/02/16 Time of Encounter: 10:30 Assessment and Plan (1) Tachycardia Status: Acute The basic and a total alcohol withdrawal and versus suspected uncontrolled hyperthyroidism. check EKG (2) Alcohol withdrawal Status: Acute Schedule IV ativan on 3 times a day. cIWA protocol. IV fluids. Qualifiers: Complication of substance-induced condition: with delirium Qualified Code(s ): F10.231 - Alcohol dependence with withdrawal delirium (3) Hyperthyroidism Status: Acute TSH was 0 in Jun 30. Patient with history of hyperthyroidism. check free T4 and free T3. (4) MDD (major depressive disorder), recurrent severe, without psychosis Status: Acute Psychiatry service will be following. Patient is still having suicidal ideations. sitter at bedside. (5) COPD (chronic obstructive pulmonary disease) Status: Acute 06/30: CXR was negative for any acute process nebs Qualifiers: COPD type: chronic bronchitis Chronic bronchitis type: simple Qualified Code(s): J41.0 - Simple chronic bronchitis (6) Tobacco use Status: Chronic (7) HIV infection Status: Acute Internal Medicine - H&P: HPI Chief complaint: Changes in mental status for 3 days. Admitted From: Intrahospital Transfer History of present illness: Mr. Owen is a 46 year old male with past medical history of COPD, hyperthyroidism, HIV infection diagnosed in April 2016 not on any therapy, major depression and heavy alcohol use who was hospitalized in our inpatient psychiatry unit in June 30 for suicidal ideations. Patient is very confused and lethargic, he is unable to provide a detailed history. He has a chronic cough due to smoking. He denies any headache, shortness of breath, chest pain, abdominal pain, bleeding, lower extremity edema. Per nursing staff, patient is somnolent, very confused and unable to ambulate on his own. His oral intake is minimal. His heart rate has been trending up to 116 this morning and as well as his temperature of 99.7. Blood pressure 91/62. TSH 0.000 in Jun 30. Patient will be admitted for IV hydration, suspected alcohol withdrawal and uncontrolled hyperthyroidism. Past Med Surg Social Fam HX - Past Medical History Medical history: COPD, thyroid disease, other Psychiatric history: anxiety, bipolar, panic disorder, prior suicide attempt, previous psychiatric hospitalization - Past Surgical History Surgical History: non-contributory - Social History Smoking Status: Current every day smoker Smokeless Tobacco Status: No Alcohol use: occasionally Drug use: marijuana Internal Medicine - H&P: Meds BuPROPion SR (12 HR) [Wellbutrin SR] 150 mg PO QAM #30 tablet.er 05/12/16 [Rx] HydrOXYzine Pamoate 50 mg PO QID PRN #120 capsule 05/12/16 [Rx] Mirtazapine [Remeron] 15 mg PO HS #30 tablet 05/12/16 [Rx] Quetiapine Fumarate [Seroquel] 400 mg PO HS #30 tablet 05/12/16 [Rx] Allergies acetaminophen [From Tylenol] Adverse Reaction (Verified 04/15/16 20:22) Rash ibuprofen Adverse Reaction (Verified 04/15/16 20:22) Rash All Systems PM: A 10-system review of systems was performed and is negative for pertinent findings except as documented above in the HPI. - Constitutional General appearance: Present: A&O X 1, no acute distress Exam: Poor hygiene. Somnolent but he arouses to verbal stimuli and answers some questions. He is able to sit up on the edge of bed with help. - Head Head exam: Present: atraumatic - Eye Eye exam: Present: PERRL. Absent: sclera anicteric - Neck Neck exam general surgery: Absent: lymphadenopathy - Respiratory Respiratory exam: Present: rhonchi - Cardiovascular Cardiovascular exam: Present: tachycardia - GI/Abdominal GI/Abdominal exam: Present: normal bowel sounds, soft. Absent: distended, tenderness - Extremities Exam Extremities exam: Absent: joint swelling, pedal edema, tenderness - Back Exam Back exam: Absent: CVA tenderness (L), CVA tenderness (R) - Skin Skin exam: Present: dry
[2016-07-02] MEDS ORDERED: Ringers Solution, Lactated 1,000 ML IVC ONE (11:32)
[2016-07-02 13:23] LABS: Basophils % 0.2 %; Eosinophils # 0.1 K/mcL (0.0-0.6); Eosinophils % 2.4 %; Hematocrit 40.5 % (37.5-50.1); Hemoglobin 14.2 g/dL (12.9-16.9); Immature Granulocytes % 0.2 % (0-4); Lymphocytes # 1.2 K/mcL (0.6-4.6); Lymphocytes % 25.6 %; Mean Corpuscular HGB Conc 35.1 g/dL (31.6-35.5); Mean Corpuscular Hemoglobin 29.2 pg (28.0-33.3); Mean Corpuscular Volume 83.3 fL (83.0-100.0); Mean Platelet Volume 9.3 fL (9.4-12.4); Monocytes # 0.5 K/mcL (0.0-1.3); Neutrophils # 2.7 K/mcL (1.6-8.9); Platelet Count 179 K/mcL (140-400); Red Blood Count 4.86 M/mcL (4.19-5.50); Red Cell Distribution Width 13.1 % (11.5-14.5); Segmented Neutrophils % 60.6 %
[2016-07-02 13:40] LABS: Alanine Aminotransferase 14 Units/L (0-55); Albumin 2.9 g/dL (3.5-5.0); Albumin/Globulin Ratio 0.8 (1.1-2.2); Alkaline Phosphatase 83 Units/L (38-126); Aspartate Amino Transferase 19 Units/L (5-34); BUN/Creatinine Ratio 17 (6-26); Bilirubin,Total 1.4 mg/dL (0.2-1.2); Blood Urea Nitrogen 12 mg/dL (8-26); Calcium 8.9 mg/dL (8.6-10.8); Carbon Dioxide 22 mEq/L (19-29); Chloride 104 mEq/L (98-109); Globulin 3.8 g/dL (2.4-3.5); Glucose 197 mg/dL (70-99); Magnesium 1.6 mg/dL (1.6-2.6); Osmolality,Calculated 283 (280-300); Phosphorous 4.5 mg/dL (2.3-4.7); Potassium 3.9 mEq/L (3.5-4.5); Sodium 134 mEq/L (136-145); Total Protein 6.7 g/dL (6.0-8.3); eGFR For African Americans > 60 (> 60); eGFR For Non-African Americans > 60 (> 60)
[2016-07-02] MEDS: Ringers Solution, Lactated 1,000 ML IVC SCH (14:49)
[2016-07-02] MEDS: Ipratropium Neb 0.5 MG NEBULIZER IH SCH ×2 (16:44→22:25)
[2016-07-02] MEDS: Levalbuterol Neb 0.63 MG/3 ML IH SCH ×2 (16:45→22:25)
[2016-07-02] MEDS: predniSONE 10 MG TABLET PO SCH (17:03)
[2016-07-02] MEDS: methIMAzole 5 MG TABLET PO SCH ×2 (17:03→21:48)
[2016-07-02] MEDS: *HR* LORazepam 2 MG/ML VIAL IVP SCH (17:03)
[2016-07-03] MEDS: *HR* LORazepam 2 MG/ML VIAL IVP SCH ×3 (00:12→15:45)
[2016-07-03] MEDS: Ringers Solution, Lactated 1,000 ML IVC SCH ×3 (01:12→22:49)
[2016-07-03] MEDS: Ipratropium Neb 0.5 MG NEBULIZER IH SCH ×4 (04:44→21:11)
[2016-07-03] MEDS: Levalbuterol Neb 0.63 MG/3 ML IH SCH ×4 (04:44→21:11)
[2016-07-03 04:54] LABS: Basophils % 0.2 %; Eosinophils % 0.2 %; Hematocrit 40.2 % (37.5-50.1); Immature Granulocytes % 0.2 % (0-4); Lymphocytes # 1.2 K/mcL (0.6-4.6); Mean Corpuscular HGB Conc 34.8 g/dL (31.6-35.5); Mean Corpuscular Volume 83.4 fL (83.0-100.0); Mean Platelet Volume 9.3 fL (9.4-12.4); Monocytes # 0.4 K/mcL (0.0-1.3); Monocytes % 7.9 %; Neutrophils # 3.3 K/mcL (1.6-8.9); Platelet Count 203 K/mcL (140-400); Red Blood Count 4.82 M/mcL (4.19-5.50); Red Cell Distribution Width 12.9 % (11.5-14.5); Segmented Neutrophils % 67.5 %
[2016-07-03 05:14] LABS: BUN/Creatinine Ratio 22 (6-26); Blood Urea Nitrogen 11 mg/dL (8-26); Calcium 9.1 mg/dL (8.6-10.8); Carbon Dioxide 23 mEq/L (19-29); Chloride 105 mEq/L (98-109); Glucose 113 mg/dL (70-99); Magnesium 1.9 mg/dL (1.6-2.6); Osmolality,Calculated 282 (280-300); Phosphorous 4.6 mg/dL (2.3-4.7); Potassium 4.5 mEq/L (3.5-4.5); Sodium 136 mEq/L (136-145); eGFR For African Americans > 60 (> 60); eGFR For Non-African Americans > 60 (> 60)
[2016-07-03 05:36] LABS: Triiodothyronine (T3) Free 4.32 pg/mL (1.71-3.71)
[2016-07-03] MEDS: predniSONE 10 MG TABLET PO SCH (09:01)
[2016-07-03] MEDS: methIMAzole 5 MG TABLET PO SCH ×3 (09:02→21:59)
--- NOTE | 2016-07-03 11:37 | Internal Med Progress Note ---
Date of Encounter: 07/03/16 Time of Encounter: 10:20 - Assessment and plan (1) COPD (chronic obstructive pulmonary disease) Current Visit: Yes Status: Chronic Assessment and plan: Not in exacerbation Alb/Duo nebs prn D/C prednisone Qualifiers: COPD type: chronic bronchitis Chronic bronchitis type: simple Qualified Code(s): J41.0 - Simple chronic bronchitis (2) HIV infection Current Visit: Yes Status: Chronic Assessment and plan: Will benefit from Infectious disease consultation Patient has no PCP and is not being followed by anyone Send CD4 count to start prophylaxis if necessary (3) Hyperthyroidism Current Visit: Yes Status: Acute Assessment and plan: No evidence of thyroid storm d/c steroids No HTN, mild tachycardia Continue methimazole Obtain thyroid USS Continue atenolol Will need further outpatient work up and follow up (4) Tachycardia Current Visit: Yes Status: Resolved Assessment and plan: Resolved, possibly from administration of IVF/Starting methimazole/ativan Taper off ativan slowly (5) Alcohol withdrawal Current Visit: Yes Status: Acute Assessment and plan: Patient on q8hr lorazepam Continue, plan to titrate off slowly Continue CIWA protocol Qualifiers: Complication of substance-induced condition: with delirium Qualified Code(s ): F10.231 - Alcohol dependence with withdrawal delirium (6) MDD (major depressive disorder), recurrent severe, without psychosis Current Visit: Yes Status: Acute (7) Suicidal ideation Current Visit: Yes Status: Acute (8) Tobacco use Current Visit: Yes Status: Chronic - Subjective Interval history: 46 year old male with past medical history of COPD, hyperthyroidism, HIV/AIDS admitted initially to Psych unit for suicidal ideation He was transferred to medicine for management of persistent tachycardia with concerns for hyperthyroidism and possible alcohol withdrawal Patient seen at bedside, sleeping but rousable Reports recent HIV infection diagnosis , does not know his CD4 count, nor why he is not on HAART He has been started on IV fluids and methimazole, as well as atenolol and prednisone His heart rate has improved Patient denies previous alcohol withdrawal symptoms nor ever been intubated for DTs He denies any new complains at this time - Constitutional Vitals: Temp Pulse Resp BP Pulse Ox 97.9 F 98 14 96/60 96 07/03/16 10:51 07/03/16 10:51 07/03/16 10:51 07/03/16 10:51 07/03/16 10:51 General appearance: Present: disheveled, A&O X 2, pleasant, no acute distress - Head Head exam: Present: atraumatic - Eye Eye exam: Present: PERRL, conjuntiva pink, sclera anicteric - ENT ENT exam: Present: mucous membranes moist - Neck Neck exam general surgery: Present: normal inspection - Respiratory Respiratory exam: Present: CTAB - Cardiovascular Cardiovascular exam: Present: RRR, +S1, +S2. Absent: systolic murmur, tachycardia - GI/Abdominal GI/Abdominal exam: Present: normal bowel sounds, soft, no peritoneal signs. Absent: tenderness - Extremities Exam Extremities exam: Absent: pedal edema Additional comments: NO tremors - Neurological Exam Neurological exam: Present: alert, no focal deficits, strengths equal and symetr throughout. Absent: pronater drift, facial droop, speech deficit Internal Medicine: Result - Labs CBC & Chem 7: 07/03/16 04:22 07/03/16 04:22 Labs: Short CBC 07/02/16 07/03/16 Range/Units 13:06 04:22 WBC 4.5 4.8 (4.3-11.1) K/mcL Hgb 14.2 D 14.0 (12.9-16.9) g/dL Hct 40.5 40.2 (37.5-50.1) % Plt Count 179 203 (140-400) K/mcL Neutrophils # 2.7 3.3 (1.6-8.9) K/mcL BMP 07/02/16 07/03/16 13:06 04:22 Sodium 134 L 136 Potassium 3.9 4.5 Chloride 104 105 Carbon Dioxide 22 23 BUN 12 11 Creatinine 0.70 L 0.50 L Glucose 197 H 113 H Calcium 8.9 9.1 Liver Function 07/02/16 Range/Units 13:06 Total Bilirubin 1.4 H (0.2-1.2) mg/dL AST 19 (5-34) Units/L ALT 14 (0-55) Units/L Alkaline Phosphatase 83 (38-126) Units/L Albumin 2.9 L (3.5-5.0) g/dL - VTE Documentation of Mechanical Device: Venous foot pump, device
--- NOTE | 2016-07-03 15:42 | Consult Note ---
Date of Encounter: 07/03/16 Time of Encounter: 15:39 Assessment & Recommendation (1) Alcohol withdrawal Current visit: Yes Status: Acute Assessment & Recommendation: Patient is under medical care for alcohol withdrawal delirium is on CIWA and making progress at this time his psychiatric condition is stable without any acute symptoms his delirious state is result of alcohol withdrawal delirium. at This time we recommend continuing medical treatment and stabilization and will follow-up with you thank you. Qualifiers: Complication of substance-induced condition: with delirium Qualified Code(s ): F10.231 - Alcohol dependence with withdrawal delirium History of Present Illness Patient: known to practice within the last 3 years Requesting Physician: Nickolas Branch MD Reason for consult: Depression and alcohol withdrawal History of present illness: Mr. Owen is a 46 year old male admitted initially to [facility] for evaluation treatment to suicidal ideation and alcohol withdrawal patient experienced symptoms of alcohol withdrawal and was tachycardia hypothermia and delirium and medical service was consulted and he was moved to the medical floor for further treatment on review of the record he is being treated for COPD, cholesterol hyperthyroidism and HIV status being evaluated currently he is on C was still for alcohol withdrawal and making some progress. CC: Nickolas Branch MD Past Med Surg Social Fam HX - Past Medical History Medical history: COPD, HIV/AIDS, thyroid disease, other - Past Psychiatric History Psychiatric history: Reports: anxiety, depression, previous psychiatric hospitalization Family psychiatric history: Unknown Family History of Suicide: Unknown - Past Surgical History Surgical History: non-contributory - Social History Smoking Status: Current every day smoker Smokeless Tobacco Status: No Alcohol use: heavy Drug use: marijuana - Family History Mother Name: Jessie Oleary Family Member Ethnicity: Non- Living Status: Hx Family Cardiac Disorders: No Hx Family Respiratory Disorders: No Hx Family Cancer: No Hx Family GI Disorders: No Hx Family Genitourinary Disorders: Yes (Chronic Kidney Disease) Hx Family Endocrine Disorder: No Hx Family Musculoskeletal Disorders: No Hx Family Neuromuscular Disorders: No Hx Family Neurologic Disorders: No Hx Family HEENT Disorders: No Hx Family Autoimmune Disorders: No Hx Family Reproductive Disorders: No Hx Family Psychosocial Disorders: No Hx Family Medical Disorders: No Medications & Allergies BuPROPion SR (12 HR) [Wellbutrin SR] 150 mg PO QAM #30 tablet.er 05/12/16 [Rx] HydrOXYzine Pamoate 50 mg PO QID PRN #120 capsule 05/12/16 [Rx] Mirtazapine [Remeron] 15 mg PO HS #30 tablet 05/12/16 [Rx] Quetiapine Fumarate [Seroquel] 400 mg PO HS #30 tablet 05/12/16 [Rx] Allergies acetaminophen [From Tylenol] Adverse Reaction (Verified 04/15/16 20:22) Rash ibuprofen Adverse Reaction (Verified 04/15/16 20:22) Rash Review of Systems Psychiatric: Reports: depression, suicidal ideation, auditory hallucinations, visual hallucinations, confusion Mental Status Exam Patient orientation: Yes Person Level of alertness: Sedated Patient appearance: Disheveled, Malodorous Behavior: cooperative, anxious Psychomotor activity: Slowed Eye contact: Minimal Contact Mood description: Anxious Affect description: constricted, anxious Speech pattern: Normal rate, Normal rhythm, Normal tone, Clear Speech volume: Normal Thought process: Intact Thought content: No Suicidal ideation, No Homicidal ideation, No Overt delusions Perceptual disturbances: Yes Auditory hallucinations, Yes Visual hallucinations Attention span: Unable to Focus Memory description: Immediate Impaired Patient reliability: Not Reliable Historian Intelligence estimate: Average Judgment: Limited Insight: Minimal Results - Vital Signs Vital signs: Temp Pulse Resp BP Pulse Ox 97.9 F 98 14 96/60 96 07/03/16 10:51 07/03/16 10:51 07/03/16 10:51 07/03/16 10:51 07/03/16 10:51 - Labs Labs: Laboratory Last Values WBC 4.8 K/mcL (4.3-11.1) 07/03/16 04:22 RBC 4.82 M/mcL (4.19-5.50) 07/03/16 04:22 Hgb 14.0 g/dL (12.9-16.9) 07/03/16 04:22 Hct 40.2 % (37.5-50.1) 07/03/16 04:22 MCV 83.4 fL (83.0-100.0) 07/03/16 04:22 MCH 29.0 pg (28.0-33.3) 07/03/16 04:22 MCHC 34.8 g/dL (31.6-35.5) 07/03/16 04:22 RDW 12.9 % (11.5-14.5) 07/03/16 04:22 Plt Count 203 K/mcL (140-400) 07/03/16 04:22 MPV 9.3 fL (9.4-12.4) L 07/03/16 04:22 Immature Gran % 0.2 % (0-4) 07/03/16 04:22 Seg Neutrophils % 67.5 % 07/03/16 04:22 Lymphocytes % 24.0 % 07/03/16 04:22 Monocytes % 7.9 % 07/03/16 04:22 Eosinophils % 0.2 % 07/03/16 04:22 Basophils % 0.2 % 07/03/16 04:22 Neutrophils # 3.3 K/mcL (1.6-8.9) 07/03/16 04:22 Lymphocytes # 1.2 K/mcL (0.6-4.6) 07/03/16 04:22 Monocytes # 0.4 K/mcL (0.0-1.3) 07/03/16 04:22 Eosinophils # 0.0 K/mcL (0.0-0.6) 07/03/16 04:22 Basophils # 0.0 K/mcL (0.0-0.2) 07/03/16 04:22 Sodium 136 mEq/L (136-145) 07/03/16 04:22 Potassium 4.5 mEq/L (3.5-4.5) 07/03/16 04:22 Chloride 105 mEq/L (98-109) 07/03/16 04:22 Carbon Dioxide 23 mEq/L (19-29) 07/03/16 04:22 BUN 11 mg/dL (8-26) 07/03/16 04:22 Creatinine 0.50 mg/dL (0.72-1.25) L 07/03/16 04:22 Est GFR ( Amer) > 60 (> 60) 07/03/16 04:22 Est GFR (Non-Af Amer) > 60 (> 60) 07/03/16 04:22 BUN/Creatinine Ratio 22 (6-26) 07/03/16 04:22 Glucose 113 mg/dL (70-99) H 07/03/16 04:22 Calculated Osmolality 282 (280-300) 07/03/16 04:22 Calcium 9.1 mg/dL (8.6-10.8) 07/03/16 04:22 Phosphorus 4.6 mg/dL (2.3-4.7) 07/03/16 04:22 Magnesium 1.9 mg/dL (1.6-2.6) 07/03/16 04:22 Total Bilirubin 1.4 mg/dL (0.2-1.2) H 07/02/16 13:06 AST 19 Units/L (5-34) 07/02/16 13:06 ALT 14 Units/L (0-55) 07/02/16 13:06 Alkaline Phosphatase 83 Units/L (38-126) 07/02/16 13:06 Serum Total Protein 6.7 g/dL (6.0-8.3) 07/02/16 13:06 Albumin 2.9 g/dL (3.5-5.0) L 07/02/16 13:06 Globulin 3.8 g/dL (2.4-3.5) H 07/02/16 13:06 Albumin/Globulin Ratio 0.8 (1.1-2.2) L 07/02/16 13:06 Free T4 1.58 ng/dl (0.70-1.48) H 07/03/16 04:22 Free T3 4.32 pg/mL (1.71-3.71) H 07/03/16 04:22
[2016-07-03] MEDS: *HR* HYDROmorphone 2 MG TABLET PO PRN ×2 (18:35→22:50)
[2016-07-04] MEDS: *HR* LORazepam 2 MG/ML VIAL IVP SCH ×4 (00:26→23:35)
[2016-07-04] MEDS: Ipratropium Neb 0.5 MG NEBULIZER IH SCH ×4 (04:21→22:13)
[2016-07-04] MEDS: Levalbuterol Neb 0.63 MG/3 ML IH SCH ×4 (04:21→22:14)
[2016-07-04 04:56] LABS: BUN/Creatinine Ratio 18 (6-26); Blood Urea Nitrogen 10 mg/dL (8-26); Calcium 8.9 mg/dL (8.6-10.8); Carbon Dioxide 26 mEq/L (19-29); Chloride 107 mEq/L (98-109); Glucose 175 mg/dL (70-99); Osmolality,Calculated 295 (280-300); Potassium 3.6 mEq/L (3.5-4.5); Sodium 141 mEq/L (136-145); eGFR For African Americans > 60 (> 60); eGFR For Non-African Americans > 60 (> 60)
[2016-07-04] MEDS: *HR* Enoxaparin 40 MG/0.4 ML SYRINGE SQ SCH (06:00)
[2016-07-04] MEDS: Ringers Solution, Lactated 1,000 ML IVC SCH (08:26)
[2016-07-04] MEDS: methIMAzole 5 MG TABLET PO SCH ×3 (08:28→21:12)
[2016-07-04] MEDS: *HR* HYDROmorphone 2 MG TABLET PO PRN ×3 (09:43→21:12)
--- NOTE | 2016-07-04 17:06 | Internal Med Progress Note ---
Date of Encounter: 07/04/16 Time of Encounter: 11:50 - Assessment and plan (1) COPD (chronic obstructive pulmonary disease) Current Visit: Yes Status: Chronic Assessment and plan: Not in exacerbation Alb/Duo nebs prn D/C prednisone Qualifiers: COPD type: chronic bronchitis Chronic bronchitis type: simple Qualified Code(s): J41.0 - Simple chronic bronchitis (2) HIV infection Current Visit: Yes Status: Chronic Assessment and plan: Patient has no PCP and is not being followed by anyone Send CD4 count and viral load to start prophylaxis if necessary No ID team on board for consult (3) Hyperthyroidism Current Visit: Yes Status: Acute Assessment and plan: No evidence of thyroid storm d/c steroids Thyroid USS with evidence of Graves disease No HTN, tachycardia improved Continue methimazole Continue atenolol Will need further outpatient work up and follow up (4) Tachycardia Current Visit: Yes Status: Resolved Assessment and plan: Resolved, possibly from administration of IVF/Starting methimazole/ativan Taper off ativan slowly (5) Alcohol withdrawal Current Visit: Yes Status: Acute Assessment and plan: Change lorazepam 0.5mg q8hr Continue CIWA protocol Qualifiers: Complication of substance-induced condition: with delirium Qualified Code(s ): F10.231 - Alcohol dependence with withdrawal delirium (6) MDD (major depressive disorder), recurrent severe, without psychosis Current Visit: Yes Status: Acute (7) Suicidal ideation Current Visit: Yes Status: Acute (8) Tobacco use Current Visit: Yes Status: Chronic - Subjective Interval history: 46 year old male with past medical history of COPD, hyperthyroidism, HIV/AIDS admitted initially to Psych unit for suicidal ideation He was transferred to medicine for management of persistent tachycardia with concerns for hyperthyroidism and possible alcohol withdrawal Patient seen at bedside, sleeping but rousable HR has improved, and patient is no longer agitated Will begin to titrate off medication - Constitutional Vitals: Temp Pulse Resp BP Pulse Ox 98 F 73 16 97/55 95 07/04/16 15:38 07/04/16 15:38 07/04/16 16:17 07/04/16 15:38 07/04/16 16:17 General appearance: Present: disheveled, A&O X 3, pleasant, no acute distress - Head Head exam: Present: atraumatic, normocephalic - Eye Eye exam: Present: PERRL, conjuntiva pink, sclera anicteric Pupils: Present: PERRL - Neck Neck exam general surgery: Present: supple, trachea midline. Absent: lymphadenopathy - Respiratory Respiratory exam: Present: CTAB. Absent: accessory muscle use, rales, rhonchi, wheezes - Cardiovascular Cardiovascular exam: Present: RRR, +S1, +S2. Absent: diastolic murmur, gallop, rubs, systolic murmur - GI/Abdominal GI/Abdominal exam: Present: normal bowel sounds, soft, no peritoneal signs. Absent: distended, tenderness - Extremities Exam Extremities exam: Present: warm, radial pulses palpable and symetrical. Absent : calf tenderness, cyanotic, pedal edema - Neurological Exam Neurological exam: Present: CN II-XII intact, oriented X3, no focal deficits. Absent: pronater drift, facial droop, speech deficit - Skin Skin exam: Present: dry, intact Internal Medicine: Result - Labs CBC & Chem 7: 07/03/16 04:22 07/04/16 04:20 Labs: BMP 07/04/16 04:20 Sodium 141 Potassium 3.6 Chloride 107 Carbon Dioxide 26 BUN 10 Creatinine 0.57 L Glucose 175 H Calcium 8.9 - VTE Documentation of Mechanical Device: Venous foot pump, device
[2016-07-05] MEDS: Levalbuterol Neb 0.63 MG/3 ML IH SCH ×3 (04:40→15:53)
[2016-07-05] MEDS: Ipratropium Neb 0.5 MG NEBULIZER IH SCH ×3 (04:40→15:53)
[2016-07-05] MEDS: *HR* Enoxaparin 40 MG/0.4 ML SYRINGE SQ SCH (06:39)
[2016-07-05] MEDS: Ringers Solution, Lactated 1,000 ML IVC SCH (07:07)
[2016-07-05] MEDS ORDERED: *HR* LORazepam 0.5 MG TABLET PO PRN (08:56)
--- NOTE | 2016-07-05 09:00 | Discharge Summary ---
Date of Encounter: 07/05/16 Time of Encounter: 09:00 - Discharge Diagnosis (1) AIDS (acquired immune deficiency syndrome) Priority: Primary Status: Acute Comments: CD4 count of 40 Viral load pending Patient with no PCP, not following with anyone No in-patient infectious disease specialist at this time Patient has been started on PCP and MAC prophylaxis Continue same I have educated him on need for PCP follow up and HIV specialist referral by PCP He verbalized understanding (2) COPD (chronic obstructive pulmonary disease) Priority: Secondary Status: Chronic Qualifiers: COPD type: chronic bronchitis Chronic bronchitis type: simple Qualified Code(s): J41.0 - Simple chronic bronchitis (3) HIV infection Priority: Secondary Status: Chronic (4) Hyperthyroidism Priority: Primary Status: Acute Comments: Patient with known Grave's disease, with hyperthyroidism Not compliant with medications for follow up No evidence of thyroid storm in-patient, was started on atenolol and methimazole for adrenergic symptoms HR has since improved Thyroid USS demonstrates Grave's disease Patient will need further work up as outpatient He is educated on side effect of methimazole viz agranulocytosis and educated to mention this medication should he develop fever ir visit an ER at any point in time Verbalized understanding (5) Tachycardia Priority: Secondary Status: Resolved (6) Alcohol withdrawal Priority: Secondary Status: Resolved Qualifiers: Complication of substance-induced condition: with delirium Qualified Code(s ): F10.231 - Alcohol dependence with withdrawal delirium (7) MDD (major depressive disorder), recurrent severe, without psychosis Priority: Primary Status: Acute Comments: With suicidal ideation. For discharge to psych today. (8) Suicidal ideation Priority: Primary Status: Acute (9) Tobacco use Priority: Secondary Status: Chronic (10) Malnutrition Priority: Secondary Status: Chronic - Discharge Medications Home Medications: BuPROPion SR (12 HR) [Wellbutrin SR] 150 mg PO QAM #30 tablet.er 05/12/16 [Rx] HydrOXYzine Pamoate 50 mg PO QID PRN #120 capsule 05/12/16 [Rx] Mirtazapine [Remeron] 15 mg PO HS #30 tablet 05/12/16 [Rx] Quetiapine Fumarate [Seroquel] 400 mg PO HS #30 tablet 05/12/16 [Rx] Atenolol [Tenormin] 12.5 mg PO DAILY tablet 07/05/16 [Rx] Azithromycin [Zithromax] 1,200 mg PO QWEEK tablet 07/05/16 [Rx] LORazepam [Ativan] 0.5 mg PO HS PRN #0 tablet 07/05/16 [Rx] Methimazole [Tapazole] 5 mg PO TID tablet 07/05/16 [Rx] Omeprazole [PriLOSEC] 20 mg PO DAILY@0630 capsule. 07/05/16 [Rx] Sulfamethoxazole/Trimeth DS [Bactrim Ds] 1 each PO DAILY tablet 07/05/16 [Rx] Allergies/Adverse Reactions: Allergies acetaminophen [From Tylenol] Adverse Reaction (Verified 04/15/16 20:22) Rash ibuprofen Adverse Reaction (Verified 04/15/16 20:22) Rash Procedures/tests Complete & Pending: Procedures Performed prior 72 hours Category Date Time Status thyroid ultrasound [US thyroid] [US] Routine Exams 07/03/16 13:30 Completed ECG 12 lead ECG [ECG] Routine Y 07/02/16 11:32 Ordered Date of admission: 07/03/16 13:42 Consults: 07/02/16 14:09 Consult to Psychiatry [CONS] Routine Consulting Provider: Psychiatry Vaishnavi Reason for Consult: depression Call Completed: Yes 07/02/16 14:33 Consult to [facility] [CONS] Routine Reason for SW Consult: Suicidal Ideations - Transfer from Discharging clinician: Nickolas Branch Anticipated date of discharge: 07/05/16 - Patient Status Disposition: Transfer Psychiatric Hosp Condition: Good Functional capacity at discharge: independent ambulation Overall status at discharge: patient is back to baseline - Discharge Instructions - Diet and Activity Activity: resume usual activities as tolerated Diet: low fat, low cholesterol Interval History: See below Hospital course: 46 year old male with past medical history of COPD, hyperthyroidism, AIDS admitted initially to Psych unit for suicidal ideation He was transferred to medicine for management of persistent tachycardia with concerns for hyperthyroidism and possible alcohol withdrawal Patient seen at bedside, sleeping but rousable HR has improved, and patient is no longer agitated He was initially on ativan IV RTC and prn He has not required IV ativan since 07/03 He is now being tapered and is currenty on po 0.5mg HS Work up revealed CD4 count of 40 , MAC and PCP prophylaxis has been initiated Patient is poor candidate and not compliant with his medications or follow up Recommend PCP follow up on discharge from [facility] for management of his AIDS, Graves's disease and COPD Tobacco cessation counselling done for 3 minutes Time spent discussing smoking cessation with patient: 3 to 10 minutes (3 minutes spent discussing tobacco cessation) - Time Spent with Patient Total time spent providing and/or coordinating discharge services: - Constitutional Vitals: Temp Pulse Resp BP Pulse Ox 98.3 F 52 16 101/53 98 07/05/16 03:00 07/05/16 03:00 07/05/16 04:40 07/05/16 03:00 07/05/16 04:40 General appearance: Present: disheveled, A&O X 3, pleasant, no acute distress - Head Head exam: Present: atraumatic, normocephalic - Eye Eye exam: Present: PERRL, conjuntiva pink, sclera anicteric Pupils: Present: PERRL - Neck Neck exam general surgery: Present: supple, trachea midline. Absent: lymphadenopathy - Respiratory Respiratory exam: Present: CTAB. Absent: accessory muscle use, rales, rhonchi, wheezes - Cardiovascular Cardiovascular exam: Present: RRR, +S1, +S2. Absent: diastolic murmur, gallop, rubs, systolic murmur - GI/Abdominal GI/Abdominal exam: Present: normal bowel sounds, soft, no peritoneal signs. Absent: distended, tenderness - Extremities Exam Extremities exam: Present: warm, radial pulses palpable and symetrical. Absent : calf tenderness, cyanotic, pedal edema - Neurological Exam Neurological exam: Present: CN II-XII intact, oriented X3, no focal deficits. Absent: pronater drift, facial droop, speech deficit - Skin Skin exam: Present: dry, intact - VTE Documentation of Mechanical Device: Venous foot pump, device
[2016-07-05 09:53] VITALS: BP 102/69
[2016-07-05] MEDS: methIMAzole 5 MG TABLET PO SCH ×2 (09:54→13:54)
[2016-07-05] MEDS: *HR* LORazepam 2 MG/ML VIAL IVP SCH (10:04)
[2016-07-05] MEDS ORDERED: Sulfamethoxazole/Trimeth DS 1 EACH TABLET PO SCH (13:15)
[2016-07-05] MEDS ORDERED: Azithromycin 250 MG TABLET PO SCH (13:15)
[2016-07-09 08:17] LABS: HIV-1 Viral Load Interp DETECTED (Not Detected)
== END 2016-07-05 19:01 | DRG 775 ==
LOC: 3BNU → SUATTDRO 12:49
PROVIDERS: ADMIT Nurse Practitioner Family; ATTEND Internal Medicine

== ENCOUNTER 2016-07-05 18:38 | Observation (INO) ==
[2016-07-05] MEDS ORDERED: Mag Hydrox/Al Hydrox/Simeth 30 ML UDC PO PRN (19:26)
[2016-07-05] MEDS ORDERED: *HR* LORazepam 1 MG TABLET PO PRN (19:26)
[2016-07-05] MEDS ORDERED: Haloperidol Lactate 5 MG/ML VIAL IM PRN (19:26)
[2016-07-05] MEDS ORDERED: traZODone 50 MG TABLET PO PRN (19:26)
[2016-07-05] MEDS ORDERED: *HR* LORazepam 2 MG/ML VIAL IM PRN (19:26)
[2016-07-05] MEDS ORDERED: MOM Conc 10 ML UD.LIQ PO PRN (19:26)
[2016-07-05] MEDS ORDERED: hydrOXYzine pamoate 25 MG CAPSULE PO PRN (19:26)
[2016-07-05] MEDS ORDERED: Mirtazapine 15 MG TABLET PO SCH (21:45)
[2016-07-05] MEDS ORDERED: traMADol 50 MG TABLET PO PRN (21:46)
[2016-07-05] MEDS: methIMAzole 5 MG TABLET PO SCH (23:23)
[2016-07-06] MEDS: methIMAzole 5 MG TABLET PO SCH ×2 (08:42→15:05)
[2016-07-06 08:46] VITALS: BP 84/59
[2016-07-06] MEDS ORDERED: Sulfamethoxazole/Trimeth DS 1 EACH TABLET PO SCH (09:00)
--- NOTE | 2016-07-06 10:14 | Discharge Summary ---
Date of Encounter: 07/02/16 Time of Encounter: 01:00 Diagnosis - Discharge Diagnosis (1) Alcohol dependence Status: Acute Qualifiers: Substance use status: in withdrawal Qualified Code(s): F10.231 - Alcohol dependence with withdrawal delirium Medications - Discharge Medications BuPROPion SR (12 HR) [Wellbutrin SR] 150 mg PO QAM #30 tablet.er 05/12/16 [Rx] HydrOXYzine Pamoate 50 mg PO QID PRN #120 capsule 05/12/16 [Rx] Mirtazapine [Remeron] 15 mg PO HS #30 tablet 05/12/16 [Rx] Quetiapine Fumarate [Seroquel] 400 mg PO HS #30 tablet 05/12/16 [Rx] Atenolol [Tenormin] 12.5 mg PO DAILY tablet 07/05/16 [Rx] Azithromycin [Zithromax] 1,200 mg PO QWEEK tablet 07/05/16 [Rx] LORazepam [Ativan] 0.5 mg PO HS PRN #0 tablet 07/05/16 [Rx] Methimazole [Tapazole] 5 mg PO TID tablet 07/05/16 [Rx] Omeprazole [PriLOSEC] 20 mg PO DAILY@0630 capsule. 07/05/16 [Rx] Sulfamethoxazole/Trimeth DS [Bactrim Ds] 1 each PO DAILY tablet 07/05/16 [Rx] Tramadol HCl [Ultram] 50 mg PO BID PRN 07/05/16 [History] Allergies acetaminophen [From Tylenol] Adverse Reaction (Verified 04/15/16 20:22) Rash ibuprofen Adverse Reaction (Verified 04/15/16 20:22) Rash Provider Date of admission: 07/05/16 18:38 Primary care physician: PCP NO Consults: 07/06/16 02:19 Consult to Hospitalist [CONS] Routine Consulting Provider: Hospitalist Apogee Reason for Consult: hypotension Time Notified: 22:30 Call Completed: Yes Discharging clinician: Ramírez Jacobs Assessment and Plan - Patient/Caregiver Discharge Instructions Additional Instructions: Patient is being transferred to medical floor for stabilization of alcohol withdrawal delirium. He will return to psychiatric units after medical stabilization. - Follow up Plan Follow up with: Xavi Christensen, PAC [Physician [facility]] - 07/11/16 3:00 pm (The above appointment is with Xavi Christensen at [facility]. This appointment is to establish you with a primary care provider. Your needs for psychiatric medication and/or Vivitrol will be assessed and treated as well. Please arrive 15 minutes early to complete paperwork. Please bring your insurance card, photo ID and list of current medications to your first appointment.) Disposition: Admitted As Inpatient Hospital Course Hospital course: Mr. Owen is a 46 year old male - Time Spent with Patient Total time spent providing and/or coordinating discharge services: Quality - Multiple Antipsychotics Patient discharged on 2 or more antipsychotic medications: No
--- NOTE | 2016-07-06 11:37 | Psychiatry History & Physical ---
Date of Encounter: 07/06/16 Time of Encounter: 11:35 History of Present Illness Medicare Admission Attestation: For traditional Medicare patients the provided hospital inpatient services are reasonable and necessary and in the case of services not specified as inpatient -only under 42 CFR 419.22 (n), that they are appropriately provided as inpatient services in accordance 42 CFR 412.3. For Critical Access Hospital the patient may reasonably be expected to be discharged or transferred to a hospital within 96 hours after admission to the Critical Access Hospital. Admitted From: Intrahospital Transfer History of Present Illness: Mr. Owen is a 46 year old male who was transferred from the medical back to [facility] after stabilization of his medical condition including hyperthyroidism, tachycardia, alcohol withdrawal delirium and COPD. Patient is readmitted for further evaluation of depression and suicidal ideation" dependence on alcohol. Past Med Surg Social Fam HX - Past Medical History Medical history: COPD, thyroid disease - Past Psychiatric History Psychiatric history: Reports: anxiety, depression, previous psychiatric hospitalization Family psychiatric history: Unknown Family History of Suicide: Unknown - Past Surgical History Surgical History: non-contributory - Social History Smoking Status: Current every day smoker Smokeless Tobacco Status: No Alcohol use: heavy Drug use: marijuana - Family History Mother Family Member Ethnicity: Non- Living Status: Hx Family Cardiac Disorders: No Hx Family Respiratory Disorders: No Hx Family Cancer: No Hx Family GI Disorders: No Hx Family Endocrine Disorder: No Hx Family Neuromuscular Disorders: No Hx Family Neurologic Disorders: No Hx Family HEENT Disorders: No Hx Family Autoimmune Disorders: No Medications & Allergies Atenolol [Tenormin] 12.5 mg PO DAILY tablet 07/05/16 [Rx] Azithromycin [Zithromax] 1,200 mg PO QWEEK tablet 07/05/16 [Rx] Methimazole [Tapazole] 5 mg PO TID tablet 07/05/16 [Rx] Omeprazole [PriLOSEC] 20 mg PO DAILY@0630 capsule. 07/05/16 [Rx] Sulfamethoxazole/Trimeth DS [Bactrim Ds] 1 each PO DAILY tablet 07/05/16 [Rx] Tramadol HCl [Ultram] 50 mg PO BID PRN 07/05/16 [History] BuPROPion SR (12 HR) [Wellbutrin SR] 150 mg PO QAM #30 tablet.er 07/06/16 [Rx] HydrOXYzine Pamoate 50 mg PO QID PRN #120 capsule 07/06/16 [Rx] LORazepam [Ativan] 0.5 mg PO HS PRN #30 tablet 07/06/16 [Rx] Mirtazapine [Remeron] 30 mg PO HS #60 tablet 07/06/16 [Rx] Quetiapine Fumarate [Seroquel] 200 mg PO HS #60 tablet 07/06/16 [Rx] Allergies acetaminophen [From Tylenol] Adverse Reaction (Verified 04/15/16 20:22) Rash ibuprofen Adverse Reaction (Verified 04/15/16 20:22) Rash Review of Systems Psychiatric: Reports: depression, suicidal ideation Mental Status Exam Patient orientation: Yes Person, Yes Time, Yes Place Level of alertness: Alert Patient appearance: Appropriate, Well Groomed Behavior: calm, cooperative Psychomotor activity: Normal Eye contact: Maintains Eye Contact Mood description: Euthymic/stable Affect description: congruent with mood, full range Speech pattern: Normal rate, Normal rhythm, Normal tone Speech volume: Normal Thought process: Linear, Goal Oriented Thought content: No Suicidal ideation, No Homicidal ideation, No Overt delusions Perceptual disturbances: No Auditory hallucinations, No Visual hallucinations Attention span: Capable of Focused Attention Memory description: Grossly Intact Patient reliability: Reliable Historian Intelligence estimate: Average Judgment: Limited Insight: Partial Results - Vital Signs Vital signs: Temp Pulse Resp BP 98.4 F 94 16 84/59 07/06/16 08:45 07/06/16 08:45 07/06/16 08:45 07/06/16 08:45 Assessment and Plan (1) Alcohol dependence Current visit: No Status: Acute Plan: Admit inpatient for safety and stabilization, Close observation, Suicide Precautions per unit protocol, Encourage participation in unit milieu, Group Therapy, Monitor sleep, Monitor appetite Risks, benefits, side effects, alternatives discussed w/pt: Yes Patient agreeable to treatment: Yes Qualifiers: Substance use status: in withdrawal Complication of substance-induced condition: with delirium Qualified Code(s): F10.231 - Alcohol dependence with withdrawal delirium (2) MDD (major depressive disorder), recurrent severe, without psychosis Current visit: Yes Status: Acute Plan: Admit inpatient for safety and stabilization, Close observation, Suicide Precautions per unit protocol, Encourage participation in unit milieu, Group Therapy, Monitor sleep, Monitor appetite Risks, benefits, side effects, alternatives discussed w/pt: Yes Patient agreeable to treatment: Yes
--- NOTE | 2016-07-06 12:48 | Internal Medicine Consult Note ---
Date of Encounter: 07/06/16 Time of Encounter: 12:46 - Assessment and Plan (1) Low blood pressure reading Status: Acute Assessment and plan: Chronic, patient with malnutrition and BMI of 16.9 No tachycardia, BP trend through all visits in this facility are chronically low However, MAP always >65. Will discontinue atenolol and observe May need to restart atenolol for tachycardia as this medication is for his hyperthyroid-induced tachycardia, will observe for now Management of other chronic conditions as prior recommended by me in my discharge summary of 07/05/16 Pysch conditions per management by psych Thanks for your consult, kindly reconsult prn (2) MDD (major depressive disorder), recurrent severe, without psychosis Status: Acute (3) AIDS (acquired immune deficiency syndrome) Status: Acute (4) Alcohol dependence Status: Acute Qualifiers: Substance use status: in withdrawal Complication of substance-induced condition: with delirium Qualified Code(s): F10.231 - Alcohol dependence with withdrawal delirium (5) Hyperthyroidism Status: Acute (6) Suicidal ideation Status: Acute (7) COPD (chronic obstructive pulmonary disease) Status: Chronic Qualifiers: COPD type: chronic bronchitis Chronic bronchitis type: simple Qualified Code(s): J41.0 - Simple chronic bronchitis Internal Medicine - CN: HPI - Data of Consult Patient: known to practice within the last 3 years Consult date: 07/06/16 Requesting Physician: Ramírze Jacobs MD - Consult Narrative Reason for consult: Low blood pressure History of present illness: Mr. Owen is a 46 year old male Patient left the unit before could physically assess him Past Med Surg Social Fam HX - Past Medical History Medical history: COPD, HIV/AIDS, thyroid disease Psychiatric history: anxiety, depression, previous psychiatric hospitalization - Past Surgical History Surgical History: non-contributory - Social History Smoking Status: Current every day smoker Smokeless Tobacco Status: No Alcohol use: heavy Drug use: marijuana - Family History Mother Family Member Ethnicity: Non- Living Status: Hx Family Cardiac Disorders: No Hx Family Respiratory Disorders: No Hx Family Cancer: No Hx Family GI Disorders: No Hx Family Endocrine Disorder: No Hx Family Neuromuscular Disorders: No Hx Family Neurologic Disorders: No Hx Family HEENT Disorders: No Hx Family Autoimmune Disorders: No - Constitutional Constitutional: no chills, no fatigue, no fever(s), no malaise - EENT Nose, mouth and throat: no dysphagia, no epistaxis - Cardiovascular Cardiovascular ROS IM: no chest pain, no dyspnea, no lightheadedness, no syncope - Respiratory Respiratory: no cough, no chest congestion - Gastrointestinal Gastrointestinal: no abdominal pain, no diarrhea, no nausea, no vomiting - Psychiatric Psychiatric: as per HPI Internal Medicine - CN: Meds Atenolol [Tenormin] 12.5 mg PO DAILY tablet 07/05/16 [Rx] Azithromycin [Zithromax] 1,200 mg PO QWEEK tablet 07/05/16 [Rx] Methimazole [Tapazole] 5 mg PO TID tablet 07/05/16 [Rx] Omeprazole [PriLOSEC] 20 mg PO DAILY@0630 capsule.dr 07/05/16 [Rx] Sulfamethoxazole/Trimeth DS [Bactrim Ds] 1 each PO DAILY tablet 07/05/16 [Rx] Tramadol HCl [Ultram] 50 mg PO BID PRN 07/05/16 [History] BuPROPion SR (12 HR) [Wellbutrin SR] 150 mg PO QAM #30 tablet.er 07/06/16 [Rx] HydrOXYzine Pamoate 50 mg PO QID PRN #120 capsule 07/06/16 [Rx] LORazepam [Ativan] 0.5 mg PO HS PRN #30 tablet 07/06/16 [Rx] Mirtazapine [Remeron] 30 mg PO HS #60 tablet 07/06/16 [Rx] Quetiapine Fumarate [Seroquel] 200 mg PO HS #60 tablet 07/06/16 [Rx] Allergies acetaminophen [From Tylenol] Adverse Reaction (Verified 04/15/16 20:22) Rash ibuprofen Adverse Reaction (Verified 04/15/16 20:22) Rash Internal Medicine - CN: Exam - Constitutional Vitals: Temp Pulse Resp BP 98.4 F 94 16 84/59 07/06/16 08:45 07/06/16 08:45 07/06/16 08:45 07/06/16 08:45 Consult Discharge Plan - Plan Instructions: Depression (DC) Referrals: [facility] [Outside] - 07/12/16 8:30 am (The above appointment is with Martha Otero, counselor at [facility]. ) Xavi Christensen, PAC [Physician Pail Bailer] - 07/11/16 3:00 pm (The above appointment is with Xavi Christensen at [facility]. This appointment is to establish you with a primary care provider. Your needs for psychiatric medication and/or Vivitrol will be assessed and treated as well. Please arrive 15 minutes early to complete paperwork. Please bring your insurance card, photo ID and list of current medications to your first appointment.) Prescriptions: BuPROPion SR (12 HR) [Wellbutrin SR] 150 mg PO QAM #30 tablet.er HydrOXYzine Pamoate 50 mg PO QID PRN #120 capsule PRN Reason: Anxiety LORazepam [Ativan] 0.5 mg PO HS PRN #30 tablet PRN Reason: Insomnia Mirtazapine [Remeron] 30 mg PO HS #60 tablet Quetiapine Fumarate [Seroquel] 200 mg PO HS #60 tablet
--- NOTE | 2016-07-06 13:29 | Discharge Summary ---
Date of Encounter: 07/06/16 Time of Encounter: 13:16 Diagnosis - Discharge Diagnosis (1) Alcohol dependence Priority: Secondary Status: Acute Qualifiers: Substance use status: in withdrawal Complication of substance-induced condition: with delirium Qualified Code(s): F10.231 - Alcohol dependence with withdrawal delirium (2) MDD (major depressive disorder), recurrent severe, without psychosis Priority: Primary Status: Acute Medications - Discharge Medications Prescriptions: BuPROPion SR (12 HR) [Wellbutrin SR] 150 mg PO QAM #30 tablet.er HydrOXYzine Pamoate 50 mg PO QID PRN #120 capsule PRN Reason: Anxiety LORazepam [Ativan] 0.5 mg PO HS PRN #30 tablet PRN Reason: Insomnia Mirtazapine [Remeron] 30 mg PO HS #60 tablet Quetiapine Fumarate [Seroquel] 200 mg PO HS #60 tablet Atenolol [Tenormin] 12.5 mg PO DAILY tablet 07/05/16 [Rx] Azithromycin [Zithromax] 1,200 mg PO QWEEK tablet 07/05/16 [Rx] Methimazole [Tapazole] 5 mg PO TID tablet 07/05/16 [Rx] Omeprazole [PriLOSEC] 20 mg PO DAILY@0630 capsule. 07/05/16 [Rx] Sulfamethoxazole/Trimeth DS [Bactrim Ds] 1 each PO DAILY tablet 07/05/16 [Rx] Tramadol HCl [Ultram] 50 mg PO BID PRN 07/05/16 [History] BuPROPion SR (12 HR) [Wellbutrin SR] 150 mg PO QAM #30 tablet.er 07/06/16 [Rx] HydrOXYzine Pamoate 50 mg PO QID PRN #120 capsule 07/06/16 [Rx] LORazepam [Ativan] 0.5 mg PO HS PRN #30 tablet 07/06/16 [Rx] Mirtazapine [Remeron] 30 mg PO HS #60 tablet 07/06/16 [Rx] Quetiapine Fumarate [Seroquel] 200 mg PO HS #60 tablet 07/06/16 [Rx] Allergies acetaminophen [From Tylenol] Adverse Reaction (Verified 04/15/16 20:22) Rash ibuprofen Adverse Reaction (Verified 04/15/16 20:22) Rash Provider Date of admission: 07/05/16 18:38 Primary care physician: PCP NO Consults: 07/06/16 02:19 Consult to Hospitalist [CONS] Routine Consulting Provider: Rudolph Culp Reason for Consult: hypotension Time Notified: 22:30 Call Completed: Yes Discharging clinician: Ramírez Jacobs Assessment and Plan - Patient/Caregiver Discharge Instructions Activity: resume usual activities as tolerated Diet: regular diet - Follow up Plan Follow up with: [facility] [Outside] - 07/12/16 8:30 am (The above appointment is with Martha Otero, counselor at [facility]. ) Xavi Christensen, PAC [Physician Cattle Dipper] - 07/11/16 3:00 pm (The above appointment is with Xavi Christensen at [facility]. This appointment is to establish you with a primary care provider. Your needs for psychiatric medication and/or Vivitrol will be assessed and treated as well. Please arrive 15 minutes early to complete paperwork. Please bring your insurance card, photo ID and list of current medications to your first appointment.) Functional capacity at discharge: independent ambulation Overall status at discharge: Stable Disposition: Home, Self-Care Hospital Course Hospital course: Mr. Owen is a 46 year old male readmitted from the medical floor after stabilization of alcohol withdrawal delirium, hyperthyroidism, COPD and HIV status. Patient is currently stable and nonsuicidal, compliant with medication and denied any side effects. He is looking forward to discharge and outpatient follow-up. He was advised on sobriety from alcohol and compliance with his medication. - Time Spent with Patient Total time spent providing and/or coordinating discharge services: Greater than 30 minutes Quality - Multiple Antipsychotics Patient discharged on 2 or more antipsychotic medications: No Procedures - Procedures Procedures: Medication Management, Crisis Stabilization, Supportive Therapy, Group Therapy, Psychoeducational Therapy Mental Status Exam - Mental Status Exam Patient orientation: Yes Person, Yes Time, Yes Place Level of alertness: Alert Patient appearance: Appropriate, Well Groomed Behavior: calm, cooperative Psychomotor activity: Normal Eye contact: Maintains Eye Contact Mood description: Euthymic/stable Affect description: congruent with mood, full range Speech pattern: Normal rate, Normal rhythm, Normal tone Speech Volume: Normal Thought process: Linear, Goal Oriented Thought Content: No Suicidal ideation, No Homicidal ideation, No Overt delusions Perceptual Disturbances: No Auditory hallucinations, No Visual hallucinations Judgment: Limited Insight: Partial
[2016-07-12] MEDS ORDERED: Azithromycin 250 MG TABLET PO SCH (09:00)
== END 2016-07-06 17:15 | disposition home or self-care (01) ==
LOC: 1ANU 18:38 → INTOOBSV 18:38
PROVIDERS: ADMIT Psychiatry & Neurology Psychiatry; ATTEND Psychiatry & Neurology Psychiatry

== ENCOUNTER 2016-09-15 17:59 | Inpatient (IN) ==
[2016-09-15] MEDS ORDERED: Ipratropium/Albuterol Neb 3 ML IH ONE (18:01)
[2016-09-15] MEDS ORDERED: methylPREDNISolone 125 MG/2 ML VIAL IV ONE (18:01)
--- NOTE | 2016-09-15 18:08 | Emergency Department Note ---
Disposition Clinical Impression: Acute exacerbation of chronic obstructive airways disease Disposition: Still a Patient Condition: Good Forms: ED Satisfaction Letter Time of Disposition: 18:56 General Adult HPI - General Chief complaint: ED Shortness of Breath/Dyspnea Stated complaint: Cough Time Seen by Provider: 09/15/16 18:01 Source: patient Limitations: no limitations Nursing Notes Reviewed: Yes Vital Signs Reviewed: Yes - History of Present Illness HPI Narrative: History complaining of a three-day history of shortness of breath and cough with white sputum. Does have history of COPD and HIV. States he has chills but no fevers. Pain Scale: 10 - Related Data Home Medications Medication Instructions Recorded Confirmed Tramadol HCl [Ultram] 50 mg PO BID PRN 07/05/16 07/05/16 Previous Rx's Medication Instructions Recorded Atenolol [Tenormin] 12.5 mg PO DAILY tablet 07/05/16 Azithromycin [Zithromax] 1,200 mg PO QWEEK tablet 07/05/16 Methimazole [Tapazole] 5 mg PO TID tablet 07/05/16 Omeprazole [PriLOSEC] 20 mg PO DAILY@0630 capsule. 07/05/16 Sulfamethoxazole/Trimeth DS 1 each PO DAILY tablet 07/05/16 [Bactrim Ds] BuPROPion SR (12 HR) [Wellbutrin 150 mg PO QAM #30 tablet.er 07/06/16 SR] HydrOXYzine Pamoate 50 mg PO QID PRN #120 capsule 07/06/16 LORazepam [Ativan] 0.5 mg PO HS PRN #30 tablet 07/06/16 Mirtazapine [Remeron] 30 mg PO HS #60 tablet 07/06/16 Quetiapine Fumarate [Seroquel] 200 mg PO HS #60 tablet 07/06/16 Cyclobenzaprine [Flexeril] 10 mg PO TID #15 tablet 08/21/16 PredniSONE 40 mg PO DAILY #10 tablet 08/21/16 Allergies Allergy/AdvReac Type Severity Reaction Status Date / Time acetaminophen [From Tylenol] AdvReac Rash Verified 09/15/16 18:00 ibuprofen AdvReac Rash Verified 09/15/16 18:00 All systems ED: reviewed and negative except as stated. Constitutional: Reports: chills. Denies: fever, weakness ENT ED: Denies: congestion, dysphagia Cardiovascular: Denies: chest pain, palpitations, syncope Respiratory: Reports: cough (3 days.), dyspnea (3 days.), sputum production ( White sputum). Denies: wheezes Gastrointestinal: Reports: abdominal pain (Pain to his abdominal muscles from coughing.), nausea (While coughing.). Denies: vomiting, diarrhea, constipation Genitourinary: Denies: urgency, dysuria, frequency, hematuria Musculoskeletal: Denies: back pain, neck pain Integumentary: Denies: rash Neurological: Denies: headache, weakness Past Medical History - Past Medical History Attestation: Yes The following information was validated with the patient. Medical history: Reports: COPD, HIV/AIDS, thyroid disease Surgical history: Reports: non-contributory Psychiatric history: Reports: anxiety, depression, previous psychiatric hospitalization - Social History Smoking Status: Current every day smoker Smokeless Tobacco Status: No Alcohol use: Reports: occasionally Drug use: Reports: marijuana Physical Exam - General Limitations: no limitations General appearance: alert, other (Appears mildly short of breath. Does have cough.) - Head Head exam: atraumatic, normocephalic - Eye Eye exam: Present: normal appearance, PERRL, EOMI. Absent: scleral icterus - ENT ENT exam: normal exam, normal oropharynx, mucous membranes moist - Neck Neck exam: Present: normal inspection, full ROM, trachea midline. Absent: meningismus, lymphadenopathy - Chest Chest inspection: Present: normal inspection, symmetric chest wall rise - Respiratory Respiratory exam: Present: normal lung sounds bilaterally. Absent: respiratory distress - Cardiovascular Cardiovascular exam: Present: regular rate, normal rhythm, normal heart sounds - Abdominal Exam Abdominal exam: Present: soft, Non-Tender, normal bowel sounds. Absent: organomegaly, Bunch's sign, Rovsing's sign, tenderness at McBurney's Point - Extremities Exam Extremities exam: Present: normal inspection, full ROM, normal capillary refill. Absent: tenderness, pedal edema - Expanded Lower Extremity Exam Hip/Pelvis exam: Present: normal inspection, full ROM Upper leg exam: Present: normal inspection, full ROM Knee exam: Present: normal inspection, full ROM Lower leg exam: Present: normal inspection, full ROM Ankle exam: Present: normal inspection, full ROM Foot/toe exam: Present: normal inspection, full ROM Neurovascular/Tendon exam: Absent: motor deficit, sensory deficit, tendon deficit - Back Exam Back exam: Present: normal inspection, full ROM. Absent: tenderness, CVA tenderness (R), CVA tenderness (L) - Neurological Exam Neurological exam: Present: alert, oriented X3 - Psychiatric Psychiatric exam: Present: normal affect, normal mood - Skin Skin exam: Present: warm, dry, intact, normal color, rash. Absent: cyanosis Course Course Narrative: The patient brought in by EMS. They say he was walking down the road. He is complaining of shortness of breath and a cough 3 days. He states he does have a white sputum production. States he has a history of COPD as well as HIV. States he has had chills recently but has not taken his temperature to afever.He states he does get nauseated whenever he is coughing frequently. Also complaining ofpain to his abdominal muscles but denies any actual abdominal pain. Denies any vomiting or diarrhea. Denies any chest pain. He denies any edema to his extremities. Alert and oriented and constantly coughing while we are in the room. His lung sounds are relatively clear but this is hard to examine due to his frequent coughing. We will get a chest x-ray and DuoNeb's and a course of steroids. Patient does not appear ill however he does appear mildly dyspneic. We will also get EKG. - Reevaluation(s) Reevaluation #1: Patient reexamined. He states that his shortness of breath has mostly resolved. He said he only has a mild cough now. However he is tachycardic. He now states that he does have a history of Graves' disease. He has not been on any medication for quite some time as he has lost his insurance. He states he is trying to find a new doctor at this time to monitor his HIV and his grades. We will get a TSH and basic lab workup on patient. Sign out was given to Dr. Foster. Time: 18:55 Vital Signs Temperature 98.4 F 09/15/16 18:01 Pulse Rate 107 09/15/16 18:01 Respiratory Rate 24 09/15/16 18:01 Blood Pressure 113/84 09/15/16 18:01 O2 Sat by Pulse Oximetry 94 09/15/16 18:01 Temperature 98.4 F 09/15/16 18:01 Pulse Rate 107 09/15/16 18:01 Respiratory Rate 24 04/22/17 18:01 Blood Pressure 113/84 09/15/16 18:01 O2 Sat by Pulse Oximetry 94 09/15/16 18:01 Oxygen Delivery Oxygen Delivery Room Air Medical Decision Making - MDM Narrative Medical decision making narrative: I examined this patient and my medical decision-making was reviewed with the SR. DIRECTOR/PA/Advanced Practice Nurse/Resident Physician. I agree with the documented findings, disposition and treatment plan as described except to the extent set forth below. Patient arrives by EMS was seen by Dr. Shetty and myself. He is conversationally dyspneic to 1-2 words. He has been coughing and dyspneic. Denies any chest pain. Work in a due to EKG breathing treatment chest x-ray then reassessed to determine if we need to do any lab work with him pain if he gets good relief with nebulized treatments. I supervised the care of the patient throughout the stay and evaluate this patient independently. Patient's on doing better breathing after getting his nebulizers. He also says that he has been noncompliant with his outpatient care does have a doctor. He also has a HIV and thyroid disease throughout on labs aside about leaving ER physician Dr. Steen for further management disposition. Impression is acute COPD. Awaiting labs. - Radiology Data Radiology results reviewed: Yes I reviewed the patient's radiology results. - EKG Data EKG #1 EKG attestation: Yes I reviewed and interpreted this EKG. EKG results narrative: Normal sinus rhythm at a rate of 110. TX interval is not measured due to the EKG reading this EKG is atrial flutter. QRS duration is 86. QT is 312. QTC is 377. No signs of acute ischemia. No ST elevation or depression noted. No significant changes from the previous EKG dated 06/03/2016. S.B.A.R. - S.B.A.R. Background: Presenting Complaint (Shortness of breath for 3 days as well as a cough. White sputum.) Assessment: Vital Signs (Patient is tachycardic.), Course and respsone to treatment (Sounds are clear. He had 3 DuoNeb's. Lab work is pending. Chest x- ray looks clear but the official read has not been done currently.) Recommendation: Recommendation based on pending studies, treatments, or consults (Likely discharge if tachycardia is resolved. Primary care physician follow-up.)
[2016-09-15] MEDS ORDERED: 0.9 % Sodium Chloride 1,000 ML IVC ONE ×2 (18:53→20:18)
[2016-09-15 19:15] LABS: Basophils % 0.1 %; Eosinophils % 0.3 %; Hematocrit 40.8 % (37.5-50.1); Hemoglobin 14.9 g/dL (12.9-16.9); Immature Granulocytes % 0.7 % (0-4); Lymphocytes # 1.6 K/mcL (0.6-4.6); Lymphocytes % 18.2 %; Mean Corpuscular HGB Conc 36.5 g/dL (31.6-35.5); Mean Corpuscular Hemoglobin 31.1 pg (28.0-33.3); Mean Corpuscular Volume 85.2 fL (83.0-100.0); Mean Platelet Volume 9.5 fL (9.4-12.4); Monocytes # 0.8 K/mcL (0.0-1.3); Neutrophils # 6.4 K/mcL (1.6-8.9); Platelet Count 223 K/mcL (140-400); Red Blood Count 4.79 M/mcL (4.19-5.50); Red Cell Distribution Width 12.9 % (11.5-14.5); Segmented Neutrophils % 71.7 %
[2016-09-15 19:24] LABS: Alanine Aminotransferase 12 Units/L (0-55); Albumin 3.6 g/dL (3.5-5.0); Albumin/Globulin Ratio 0.9 (1.1-2.2); Alkaline Phosphatase 76 Units/L (38-126); Aspartate Amino Transferase 27 Units/L (5-34); BUN/Creatinine Ratio 12 (6-26); Bilirubin,Direct 0.5 mg/dL (0.0-0.5); Bilirubin,Indirect 0.6 mg/dL (0.0-1.2); Bilirubin,Total 1.1 mg/dL (0.2-1.2); Blood Urea Nitrogen 9 mg/dL (8-26); Calcium 8.9 mg/dL (8.6-10.8); Carbon Dioxide 23 mEq/L (19-29); Chloride 101 mEq/L (98-109); Globulin 3.8 g/dL (2.4-3.5); Glucose 101 mg/dL (70-99); Osmolality,Calculated 279 (280-300); Potassium 3.9 mEq/L (3.5-4.5); Sodium 135 mEq/L (136-145); Total Protein 7.4 g/dL (6.0-8.3); eGFR For African Americans > 60 (> 60); eGFR For Non-African Americans > 60 (> 60)
[2016-09-15] MEDS ORDERED: Azithromycin 500 MG in D5% in Water 250 ML IVPB ONE (20:12)
--- NOTE | 2016-09-15 20:15 | Emergency Department Note ---
Disposition Clinical Impression: Acute exacerbation of chronic obstructive airways disease, HIV (human immunodeficiency virus infection), Hyperthyroidism Pneumonia Qualifiers: Pneumonia type: due to unspecified organism Lung location: unspecified part of lung Disposition: Admitted As Inpatient Condition: Fair Referrals: NO,PCP [Primary Care Provider] - Forms: ED Satisfaction Letter General Adult HPI - General Chief complaint: ED Shortness of Breath/Dyspnea Stated complaint: Cough Time Seen by Provider: 09/15/16 18:01 Source: patient Mode of arrival: ambulatory Limitations: no limitations Nursing Notes Reviewed: Yes Vital Signs Reviewed: Yes - History of Present Illness HPI Narrative: Please refer to the prior documentation for complete history and physical. Is a continuation the patient's care. Pain Scale: 10 - Related Data Home Medications Medication Instructions Recorded Confirmed Tramadol HCl [Ultram] 50 mg PO BID PRN 07/05/16 07/05/16 Previous Rx's Medication Instructions Recorded Atenolol [Tenormin] 12.5 mg PO DAILY tablet 07/05/16 Azithromycin [Zithromax] 1,200 mg PO QWEEK tablet 07/05/16 Methimazole [Tapazole] 5 mg PO TID tablet 07/05/16 Omeprazole [PriLOSEC] 20 mg PO DAILY@0630 capsule. 07/05/16 Sulfamethoxazole/Trimeth DS 1 each PO DAILY tablet 07/05/16 [Bactrim Ds] BuPROPion SR (12 HR) [Wellbutrin 150 mg PO QAM #30 tablet.er 07/06/16 SR] HydrOXYzine Pamoate 50 mg PO QID PRN #120 capsule 07/06/16 LORazepam [Ativan] 0.5 mg PO HS PRN #30 tablet 07/06/16 Mirtazapine [Remeron] 30 mg PO HS #60 tablet 07/06/16 Quetiapine Fumarate [Seroquel] 200 mg PO HS #60 tablet 07/06/16 Cyclobenzaprine [Flexeril] 10 mg PO TID #15 tablet 08/21/16 PredniSONE 40 mg PO DAILY #10 tablet 08/21/16 Allergies Allergy/AdvReac Type Severity Reaction Status Date / Time acetaminophen [From Tylenol] AdvReac Rash Verified 09/15/16 18:00 ibuprofen AdvReac Rash Verified 09/15/16 18:00 Constitutional: Reports: chills. Denies: fever, weakness ENT ED: Denies: congestion, dysphagia Cardiovascular: Denies: chest pain, palpitations, syncope Respiratory: Reports: cough (3 days.), dyspnea (3 days.), sputum production ( White sputum). Denies: wheezes Gastrointestinal: Reports: abdominal pain (Pain to his abdominal muscles from coughing.), nausea (While coughing.). Denies: vomiting, diarrhea, constipation Genitourinary: Denies: urgency, dysuria, frequency, hematuria Musculoskeletal: Denies: back pain, neck pain Integumentary: Denies: rash Neurological: Denies: headache, weakness Past Medical History - Past Medical History Medical history: Reports: COPD, HIV/AIDS, thyroid disease Surgical history: Reports: non-contributory Psychiatric history: Reports: anxiety, depression, previous psychiatric hospitalization - Social History Smoking Status: Current every day smoker Smokeless Tobacco Status: No Alcohol use: Reports: occasionally Drug use: Reports: marijuana Physical Exam - General Limitations: no limitations General appearance: alert, other (Appears mildly short of breath. Does have cough.) Course Course Narrative: Patient seen and examined upon arrival. Patient received triple DuoNeb nebs, IV steroids with slight benefit. Patient is still coughing. Patient is known HIV positive diagnosed month and a half ago. Patient has not been able to follow-up with a primary care physician or infectious disease. Patient has been having his respiratory symptoms over the past couple days. Patient does note some night sweats. Patient has not unknown CD4 count. Patient does have a history of Graves' is not been on any medications. Vital Signs Temperature 98.4 F 09/15/16 18:01 Pulse Rate 107 09/15/16 18:01 Respiratory Rate 24 09/15/16 18:01 Blood Pressure 113/84 09/15/16 18:01 O2 Sat by Pulse Oximetry 94 09/15/16 18:01 Temperature 98.4 F 09/15/16 18:01 Pulse Rate 107 09/15/16 18:01 Respiratory Rate 24 09/15/16 18:01 Blood Pressure 113/84 09/15/16 18:01 O2 Sat by Pulse Oximetry 94 09/15/16 18:01 Oxygen Delivery Oxygen Delivery Room Air Medical Decision Making - MDM Narrative Medical decision making narrative: 46-year-old male presents with respiratory complaints with the past couple days noted to be continuous coughing, no fevers, patient is a known smoker. Patient was initially treated as a COPD exacerbation with aerosols as well as IV steroids. Patient noted mild relief with Us to continue to cough throughout his ED stay. Patient's remained tachycardic he has known history of Graves' disease and has not been on any of his medications. Patient also states that he is HIV positive with an unknown CD4 count. Patient's been having night sweats. Patient states that the reason he has not been able to follow-up due to insurance issues. Concerns of this patient is still tachycardic with a low TSH as well as immunocompromise. The patient be treated with IV antibiotics, inpatient admission as well as symptomatically refers respiratory illness. She will likely benefit from an infectious disease consult. - Lab Data Lab results reviewed: Yes I reviewed the patient's lab results. Result diagrams: 09/15/16 18:30 09/15/16 18:53 Lab Results 09/15/16 09/15/16 09/15/16 Range/Units 18:30 18:30 18:53 WBC 8.9 (4.3-11.1) K/mcL RBC 4.79 (4.19-5.50) M/mcL Hgb 14.9 (12.9-16.9) g/dL Hct 40.8 (37.5-50.1) % MCV 85.2 (83.0-100.0) fL MCH 31.1 (28.0-33.3) pg MCHC 36.5 H (31.6-35.5) g/dL RDW 12.9 (11.5-14.5) % Plt Count 223 (140-400) K/mcL MPV 9.5 (9.4-12.4) fL Immature Gran % 0.7 (0-4) % Seg Neutrophils % 71.7 % Lymphocytes % 18.2 % Monocytes % 9.0 % Eosinophils % 0.3 % Basophils % 0.1 % Neutrophils # 6.4 (1.6-8.9) K/mcL Lymphocytes # 1.6 (0.6-4.6) K/mcL Monocytes # 0.8 (0.0-1.3) K/mcL Eosinophils # 0.0 (0.0-0.6) K/mcL Basophils # 0.0 (0.0-0.2) K/mcL Sodium 135 L (136-145) mEq/L Potassium 3.9 (3.5-4.5) mEq/L Chloride 101 (98-109) mEq/L Carbon Dioxide 23 (19-29) mEq/L BUN 9 (8-26) mg/dL Creatinine 0.74 (0.72-1.25) mg/dL Est GFR ( Amer) > 60 (> 60) Est GFR (Non-Af Amer) > 60 (> 60) BUN/Creatinine Ratio 12 (6-26) Glucose 101 H (70-99) mg/dL Calculated Osmolality 279 L (280-300) Calcium 8.9 (8.6-10.8) mg/dL Total Bilirubin 1.1 (0.2-1.2) mg/dL Direct Bilirubin 0.5 (0.0-0.5) mg/dL Indirect Bilirubin 0.6 (0.0-1.2) mg/dL AST 27 (5-34) Units/L ALT 12 (0-55) Units/L Alkaline Phosphatase 76 (38-126) Units/L Troponin I 0.00 (0-0.03) ng/mL Serum Total Protein 7.4 (6.0-8.3) g/dL Albumin 3.6 (3.5-5.0) g/dL Globulin 3.8 H (2.4-3.5) g/dL Albumin/Globulin Ratio 0.9 L (1.1-2.2) TSH 0.000 L (0.350-4.840) mcIU/mL - Radiology Data Radiology results reviewed: Yes I reviewed the patient's radiology results. Chest X-Ray 09/15/16 18:01 IMPRESSION: No acute process. D/ / Osmar Dalal MD / Osmar Dalal MD Interpreting Provider: Osmar Dalal MD S.B.A.R. - S.B.A.Lindsay Situation: Demographics, MOA Background: Presenting Complaint Assessment: Vital Signs, Course and respsone to treatment, Patient/Family Expectation, Pertinant Lab Results Recommendation: Barrier(s) to disposition, Recommendation based on pending studies, treatments, or consults S.B.AEllis Report Given to: Dr. Evans Abad Repor Time: 21:13 Attestation Statement - Attestation Attestation: I examined this patient and my medical decision-making was reviewed with the PERSONNEL COUNSELOR/PA/Advanced Practice Nurse/Resident Physician. I agree with the documented findings, disposition and treatment plan as described except to the extent set forth below. Signed out pending labs. Patient comes back with a TSH of 0. Persist tachycardic 120s to 130s. Has not secured follow-up as an outpatient for his newly diagnosed HIV. Not taking meds for his Graves' disease. Will be admitted.
[2016-09-15 21:56] LABS: Triiodothyronine (T3) Free 3.27 pg/mL (1.71-3.71); Triiodothyronine (T3) Total 0.98 ng/mL (0.58-1.59)
[2016-09-15] MEDS ORDERED: Ondansetron 4 MG/2 ML VIAL IVP PRN (22:23)
--- NOTE | 2016-09-15 22:45 | Internal Med History&Physical ---
<Jackelyn Bansal - Last Filed: 09/16/16 02:04> Date of Encounter: 09/16/16 Time of Encounter: 22:00 Assessment and Plan (1) Pneumonia Current visit: Yes Status: Acute - One-day history of nonproductive cough with pleuric pain. - CXR found no acute cardiopulmonary abnormality. - Immunocompromised given his untreated HIV. - Will obtain sputum culture & gram stain. - Will check respiratory infection panel and urine antigens for Legionella & S. pneumoniae. - Continue ceftriaxone and azithromycin for community acquired pneumonia coverage. - May consider IV TMP-SMZ for PCP pneumonia if patient develops significant hypoxia. - Will consult infectious diseases and appreciate recommendation. - Continue to monitor. Qualifiers: Pneumonia type: due to unspecified organism Laterality: unspecified laterality Lung location: unspecified part of lung Qualified Code(s): J18.9 - Pneumonia, unspecified organism (2) Tachycardia Current visit: No Status: Acute - HR in 100s. - Likely secondary to hyperthyroidism but current pneumonia may also partially contribute. - Continue to monitor with telemetry. - May consider Lopressor if his tachycardia runs into 120s-130s. (3) HIV infection Current visit: No Status: Chronic - Known to be HIV positive since April 2016. - CD4 count 20 and 97,000 HIV-1 RNA copies/mL on 07/03/16. - Patient has never been treated for HIV and is not on prophylatic antibiotics prior to admission. - Will check CD4 count and viral load. - Will consult infectious diseases and appreciate further evaluation and management. (4) Hyperthyroidism Current visit: Yes Status: Chronic - History of Graves' disease with hyperthyroidism. - TSH 0.000, free T4 1.51, free T3 3.27, total T3 0.98. - May consider methimazole if patient's tachycardiac persists or aggravates. - Continue to monitor. (5) COPD (chronic obstructive pulmonary disease) Current visit: No Status: Chronic - Continue bronchodilators prn shortness of breath. Qualifiers: COPD type: chronic bronchitis Chronic bronchitis type: simple Qualified Code(s): J41.0 - Simple chronic bronchitis Internal Medicine - H&P: HPI Chief complaint: Cough and pleuric pain Admitted From: Emergency Dept Plans for Post Hospital Care: Home History of present illness: Mr. Owen is a 46 year old male with PMH of COPD, Graves' disease with hyperthyroidism, HIV diagnosed since April 2016, significant psychiatric disorders requiring multiple psychiatric hospitalizations. Patient presented to [facility] ED with one-day history of persistent nonproductive cough and pleuric pain at chest and abdomen. It's associated with some shortness of breath, anorexia, nausea, dizziness/vertigo and chills. Patient reports night sweat only last night and one episode of diarrhea. Patient denies fever, recent travel or sick contact. Patient does have itchiness on bilateral forarms and shins with associated scratch ortiz. Patient was hospitalized in early June 2016 for tachycardia and was found to have CD4 count 20. Patient was discharged home with atenolol, methimazole, azithromycin and Bactrim and instructed to follow up with PCP for referral regarding HIV management. Per patient, he didn' t get his insurance until 3 weeks ago and therefore he currently is not on any medications (including psychiatric mediations) at all. 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 Patient is full code. Past Med Surg Social Fam HX - Past Medical History Medical history: COPD, HIV/AIDS, thyroid disease Psychiatric history: anxiety, depression, previous psychiatric hospitalization - Past Surgical History Surgical History: non-contributory, other (Right hand and elbow surgeries) - Social History Smoking Status: Current every day smoker Smokeless Tobacco Status: No Alcohol use: occasionally Drug use: marijuana - Family History Mother Family Member Ethnicity: Non- Living Status: Hx Family Cardiac Disorders: No Hx Family Respiratory Disorders: No Hx Family Cancer: No Hx Family GI Disorders: No Hx Family Genitourinary Disorders: Yes (Kidney problem) Hx Family Endocrine Disorder: No Hx Family Neuromuscular Disorders: No Hx Family Neurologic Disorders: No Hx Family HEENT Disorders: No Hx Family Autoimmune Disorders: No Father Hx Family Cardiac Disorders: Yes Internal Medicine - H&P: Meds Atenolol [Tenormin] 12.5 mg PO DAILY tablet 07/05/16 [Rx] Azithromycin [Zithromax] 1,200 mg PO QWEEK tablet 07/05/16 [Rx] Methimazole [Tapazole] 5 mg PO TID tablet 07/05/16 [Rx] Omeprazole [PriLOSEC] 20 mg PO DAILY@0630 capsule. 07/05/16 [Rx] Sulfamethoxazole/Trimeth DS [Bactrim Ds] 1 each PO DAILY tablet 07/05/16 [Rx] Tramadol HCl [Ultram] 50 mg PO BID PRN 07/05/16 [History] BuPROPion SR (12 HR) [Wellbutrin SR] 150 mg PO QAM #30 tablet.er 07/06/16 [Rx] HydrOXYzine Pamoate 50 mg PO QID PRN #120 capsule 07/06/16 [Rx] LORazepam [Ativan] 0.5 mg PO HS PRN #30 tablet 07/06/16 [Rx] Mirtazapine [Remeron] 30 mg PO HS #60 tablet 07/06/16 [Rx] Quetiapine Fumarate [Seroquel] 200 mg PO HS #60 tablet 07/06/16 [Rx] Cyclobenzaprine [Flexeril] 10 mg PO TID #15 tablet 08/21/16 [Rx] PredniSONE 40 mg PO DAILY #10 tablet 08/21/16 [Rx] Allergies acetaminophen [From Tylenol] Adverse Reaction (Verified 09/15/16 18:00) Rash ibuprofen Adverse Reaction (Verified 09/15/16 18:00) Rash All Systems PM: A 10-system review of systems was performed and is negative for pertinent findings except as documented above in the HPI. - Constitutional Constitutional: anorexia, chills, no fever(s) - EENT Eyes: no change in vision Ears: no decreased hearing Nose, mouth and throat: no dysphagia, no odynophagia - Cardiovascular Cardiovascular ROS IM: palpitations, no chest pain, no syncope - Respiratory Respiratory: as per HPI, cough, dyspnea, wheezing, pain on inspiration, pain with cough, no hemoptysis, no excessive phlegm production - Gastrointestinal Gastrointestinal: nausea, no hematochezia, no melena, no vomiting - Genitourinary Genitourinary ROS male: no difficulty urinating, no dysuria, no hematuria - Musculoskeletal Musculoskeletal ROS IM: myalgias (From persistent cough), no arthralgias - Integumentary Integumentary IM: pruritus - Neurological Neurological ROS: no focal weakness, no numbness, no tingling - Hematologic/Lymphatic Hematologic/Lymphatic: no easy bleeding, no easy bruising - Constitutional Vitals: Temp Pulse Resp BP Pulse Ox 98.4 F 107 24 113/84 94 09/15/16 18:01 09/15/16 18:01 09/15/16 18:01 09/15/16 18:01 09/15/16 18:01 General appearance: Present: cooperative, disheveled, A&O X 3, answers questions appropriately - Head Head exam: Present: atraumatic, normocephalic - Eye Eye exam: Present: PERRL, conjuntiva pink, sclera anicteric Pupils: Present: PERRL - Neck Neck exam general surgery: Present: supple, trachea midline. Absent: lymphadenopathy - Respiratory Respiratory exam: Present: chest wall tenderness (Reproducible on palpation.), wheezes. Absent: accessory muscle use, rales, rhonchi - Cardiovascular Cardiovascular exam: Present: +S1, +S2, tachycardia. Absent: diastolic murmur, gallop, rubs, systolic murmur - GI/Abdominal GI/Abdominal exam: Present: normal bowel sounds, soft, tenderness (Diffuse muscle soreness), no peritoneal signs. Absent: distended - Extremities Exam Extremities exam: Present: warm, radial pulses palpable and symetrical. Absent : calf tenderness, cyanotic, pedal edema - Neurological Exam Neurological exam: Present: CN II-XII intact, oriented X3, no focal deficits. Absent: pronater drift, facial droop, speech deficit - Skin Skin exam: Present: dry, excoriation (Bilateral forearms and shins, patient reports those are from his scratches for the itchiness.), warm Internal Med - H&P Results - Labs CBC & Chem 7: 09/15/16 18:30 09/15/16 18:53 Labs: Short CBC 09/15/16 Range/Units 18:30 WBC 8.9 (4.3-11.1) K/mcL Hgb 14.9 (12.9-16.9) g/dL Hct 40.8 (37.5-50.1) % Plt Count 223 (140-400) K/mcL Neutrophils # 6.4 (1.6-8.9) K/mcL BMP 09/15/16 18:53 Sodium 135 L Potassium 3.9 Chloride 101 Carbon Dioxide 23 BUN 9 Creatinine 0.74 Glucose 101 H Calcium 8.9 Cardiac Enzymes 09/15/16 Range/Units 18:30 Troponin I 0.00 (0-0.03) ng/mL Liver Function 09/15/16 Range/Units 18:53 Total Bilirubin 1.1 (0.2-1.2) mg/dL Direct Bilirubin 0.5 (0.0-0.5) mg/dL AST 27 (5-34) Units/L ALT 12 (0-55) Units/L Alkaline Phosphatase 76 (38-126) Units/L Albumin 3.6 (3.5-5.0) g/dL - EKG Data -: EKG Interpreted by Myself EKG shows normal: sinus rhythm Rate: tachycardia - EKG Data Prior EKG available for review: yes When compared to previous EKG: there is no significant change Interpretation IM: normal EKG EKG comments: 09/15/16 23:06 HR 110, QRS 86, sinus tachycardia, no significant ischemic change. - Impressions ITS Impressions Chest X-Ray 09/15/16 18:01 IMPRESSION: No acute process. D/ / Osmar Dalal MD / Osmar Dalal MD Interpreting Provider: Osmar Dalal MD <Juan A Krueger - Last Filed: 09/16/16 03:56> Date of Encounter: 09/15/16 Internal Medicine - H&P: HPI History of present illness: Mr. Owen is a 46 year old male All Systems PM: A 10-system review of systems was performed and is negative for pertinent findings except as documented above in the HPI. - Constitutional Vitals: Temp Pulse Resp BP Pulse Ox 96.9 F L 94 18 98/85 97 09/16/16 00:01 09/16/16 00:01 09/16/16 00:01 09/16/16 00:01 09/16/16 00:42 Internal Med - H&P Results - Labs CBC & Chem 7: 09/15/16 18:30 09/15/16 18:53 - Attending Attestation I performed history and physical examination of the patient and discussed management with the Resident. I reviewed the Residents note and agree with documented findings and plan of care. 46 Y/M with h/o Graves' disease with hyperthyroidism, HIV diagnosed since April 2016, psychiatric disorders requiring multiple psychiatric hospitalizations. Presents with 2 day history of nonproductive cough and pleuric pain at chest and abdomen, shortness of breath, nausea. Patient denies fever, recent travel or sick contact. He was evaluated in the emergency department CXR was negative and was started on azithromycin and ceftriaxone, for suspected community acquired pneumonia. O/E: Not in acute distress at the time of my evaluation. Lungs clear to auscultation. Cardiac: regular rate and rhythm. Abdomen nontender. EKG personally reviewed by me shows sinus tachycardia with no acute ST-T changes. She etc. reported no acute process. Labs showed low TSH. A/P: Suspected pneumonia / cough: Emperically started on azithromycin and ceftriaxone for suspected community acquired pneumonia, though the CXR is negative. Viral / atypical serology. HIV: CD4 count and HIV viral load. ID consult for advice on antiretroviral therapy and prophylaxis. Tachycardia: Likely due to hyperthyroidism versus suspected pneumonia. On IV fluids. Hyperthyroidism: TSH is low and free T4 is elevated. Not for methimazole at this time, as it can agranulocytosis / leucopenia
[2016-09-15] MEDS ORDERED: Ipratropium/Albuterol Neb 3 ML IH PRN (23:11)
[2016-09-16] MEDS: 0.9 % Sodium Chloride 1,000 ML IVC SCH ×3 (00:35→20:32)
[2016-09-16] MEDS: *HR* Heparin 5,000 UNIT/ML VIAL SQ SCH ×2 (05:36→17:17)
[2016-09-16 05:59] LABS: INR 1.1; Prothrombin Time 12.3 Seconds (9.4-12.1)
[2016-09-16 06:01] LABS: Activated Partial Thrombo Time 30.7 Seconds (26.0-36.0)
[2016-09-16 06:07] LABS: Hematocrit 38.1 % (37.5-50.1); Hemoglobin 13.8 g/dL (12.9-16.9); Immature Granulocytes % 0.9 % (0-4); Lymphocytes # 0.5 K/mcL (0.6-4.6); Magnesium 2.2 mg/dL (1.6-2.6); Mean Corpuscular HGB Conc 36.2 g/dL (31.6-35.5); Mean Corpuscular Hemoglobin 31.2 pg (28.0-33.3); Mean Corpuscular Volume 86.2 fL (83.0-100.0); Mean Platelet Volume 9.3 fL (9.4-12.4); Monocytes # 0.1 K/mcL (0.0-1.3); Neutrophils # 4.8 K/mcL (1.6-8.9); Phosphorous 4.5 mg/dL (2.3-4.7); Platelet Count 239 K/mcL (140-400); Red Blood Count 4.42 M/mcL (4.19-5.50); Red Cell Distribution Width 13.2 % (11.5-14.5); Segmented Neutrophils % 88.1 %
[2016-09-16] MEDS ORDERED: *HR* LORazepam 0.5 MG TABLET PO PRN (14:03)
[2016-09-16] MEDS ORDERED: traMADol 50 MG TABLET PO PRN ×2 (14:03→14:22)
[2016-09-16] MEDS ORDERED: hydrOXYzine pamoate 25 MG CAPSULE PO PRN (14:03)
--- NOTE | 2016-09-16 14:08 | Internal Med Progress Note ---
Date of Encounter: 09/16/16 Time of Encounter: 11:00 - Assessment and plan (1) Acute exacerbation of chronic obstructive airways disease Current Visit: Yes Status: Acute Assessment and plan: Pt continues with wheezing today. CXR negative for infiltrate yesterday. Will continue aerosols, abx. Steroids begun low dose for wheeze. Oxygen as needed. (2) Pneumonia Current Visit: Yes Status: Acute Assessment and plan: No infiltrate on single view CXR in ED. Repeat 2 view tomorrow. Qualifiers: Pneumonia type: due to unspecified organism Laterality: unspecified laterality Lung location: unspecified part of lung Qualified Code(s): J18.9 - Pneumonia, unspecified organism (3) Hyperthyroidism Current Visit: Yes Status: Chronic Assessment and plan: Restart methimazole for now as labs still consistent with hyperthyroid picture. (4) Malnutrition Current Visit: No Status: Chronic Assessment and plan: Nutritional support. (5) HIV infection Current Visit: No Status: Chronic Assessment and plan: Last CD4 count 20. Reordered this admission. Will need treatment after discharge. - Subjective Interval history: Mr. Owen is currently admitted for acute community acquired pneumonia. He is moderate to high risk due to potential for worsening respiratory status. Mr. Owen feels OK. He is still wheezing some. He has some muscular chest discomfort from coughing. No further fever. No chills. Tolerating abx. - Constitutional Vitals: Temp Pulse Resp BP Pulse Ox 98 F 86 18 104/69 96 09/16/16 11:00 09/16/16 11:00 09/16/16 11:00 09/16/16 11:00 09/16/16 12:12 General appearance: Present: cooperative, disheveled, A&O X 3, answers questions appropriately - Head Head exam: Present: normocephalic - Eye Eye exam: Present: conjuntiva pink. Absent: conjunctival injection - ENT ENT exam: Present: mucous membranes dry - Respiratory Respiratory exam: Present: decreased breath sounds, prolonged expiratory phase, wheezes. Absent: rales, rhonchi - Cardiovascular Cardiovascular exam: Present: RRR. Absent: tachycardia - GI/Abdominal GI/Abdominal exam: Present: soft. Absent: mass, tenderness - Extremities Exam Extremities exam: Present: warm. Absent: pedal edema - Neurological Exam Neurological exam: Present: alert, oriented X3, no focal deficits - Psychiatric Psychiatric exam: Present: normal affect - Skin Skin exam: Present: warm. Absent: rash Internal Medicine: Result - Labs CBC & Chem 7: 09/16/16 05:45 09/15/16 18:53 Labs: Short CBC 09/16/16 Range/Units 05:45 WBC 5.4 (4.3-11.1) K/mcL Hgb 13.8 (12.9-16.9) g/dL Hct 38.1 (37.5-50.1) % Plt Count 239 (140-400) K/mcL Neutrophils # 4.8 (1.6-8.9) K/mcL - ABG Interpretation ABG results: PT/INR, D-dimer PT 12.3 Seconds (9.4-12.1) H 09/16/16 05:45 Consult Discharge Plan - Plan Referrals: NO,PCP [Primary Care Provider] -
[2016-09-16] MEDS: methIMAzole 5 MG TABLET PO SCH ×2 (15:32→20:43)
[2016-09-16] MEDS: MethylPREDNISolone 40 MG/ML VIAL IVP SCH (17:21)
[2016-09-16] MEDS: Mirtazapine 15 MG TABLET PO SCH (20:31)
[2016-09-16] MEDS: Azithromycin 500 MG in D5% in Water 250 ML IVPB SCH (20:31)
--- NOTE | 2016-09-16 20:33 | Electrocardiograph Report ---
[place] [id number] Test Date: 2016-09-15 Pat Name: Eulalio Owen Department: 102 Room: 2N3 Gender: M Co Founder And Cto: Ruddy : 1970 Requested By: Mayur Moody Order Number: [id number] Reading MD: John Alcantar MD Measurements Intervals [place] Rate: 110 P: VT: 0 QRS: 11 QRSD: 86 T: 79 QT: 312 QTc: 377 Interpretive Statements SINUS RHYTHM Electronically Signed On 09-16-2016 20:31:41 EDT by John Alcantar MD
[2016-09-17 00:42] LABS: Adenovirus Not Detected (Not Detect); Bordetella Pertussis Not Detected (Not Detect); Chlamydophila pneumoniae Not Detected (Not Detect); Coronavirus 229E Not Detected (Not Detect); Coronavirus HKU1 Not Detected (Not Detect); Coronavirus NL63 Not Detected (Not Detect); Coronavirus OC43 Not Detected (Not Detect); Human Metapneumovirus Not Detected (Not Detect); Human Rhinovirus/Enterovirus Not Detected (Not Detect); Influenza A Subtype 2009 H1 Not Detected (Not Detect); Influenza A Untypeable Not Detected (Not Detect); Influenza B Not Detected (Not Detect); Mycoplasma pneumoniae Not Detected (Not Detect); Parainfluenza Virus 1 Not Detected (Not Detect); Parainfluenza Virus 2 Not Detected (Not Detect); Parainfluenza Virus 3 Not Detected (Not Detect); Parainfluenza Virus 4 Not Detected (Not Detect); Respiratory Syncytial Virus Not Detected (Not Detect)
[2016-09-17 04:49] LABS: Hematocrit 37.3 % (37.5-50.1); Hemoglobin 13.2 g/dL (12.9-16.9); Mean Corpuscular HGB Conc 35.4 g/dL (31.6-35.5); Mean Corpuscular Hemoglobin 30.7 pg (28.0-33.3); Mean Corpuscular Volume 86.7 fL (83.0-100.0); Mean Platelet Volume 9.4 fL (9.4-12.4); Platelet Count 257 K/mcL (140-400); Red Cell Distribution Width 13.2 % (11.5-14.5)
[2016-09-17 04:58] LABS: Alanine Aminotransferase 12 Units/L (0-55); Albumin/Globulin Ratio 0.8 (1.1-2.2); Alkaline Phosphatase 56 Units/L (38-126); Aspartate Amino Transferase 20 Units/L (5-34); BUN/Creatinine Ratio 20 (6-26); Bilirubin,Total 0.7 mg/dL (0.2-1.2); Blood Urea Nitrogen 12 mg/dL (8-26); Calcium 8.5 mg/dL (8.6-10.8); Carbon Dioxide 25 mEq/L (19-29); Chloride 111 mEq/L (98-109); Globulin 3.3 g/dL (2.4-3.5); Glucose 150 mg/dL (70-99); Osmolality,Calculated 295 (280-300); Sodium 141 mEq/L (136-145); Total Protein 6.1 g/dL (6.0-8.3); eGFR For African Americans > 60 (> 60); eGFR For Non-African Americans > 60 (> 60)
[2016-09-17 05:00] LABS: Albumin 2.8 g/dL (3.5-5.0)
[2016-09-17] MEDS: MethylPREDNISolone 40 MG/ML VIAL IVP SCH ×2 (05:33→17:32)
[2016-09-17] MEDS: BuPROPion SR (12 HR) 150 MG TABLET PO SCH (08:14)
[2016-09-17] MEDS: methIMAzole 5 MG TABLET PO SCH ×3 (08:14→19:57)
[2016-09-17] MEDS: 0.9 % Sodium Chloride 1,000 ML IVC SCH ×2 (08:16→18:57)
[2016-09-17] MEDS ORDERED: Benzonatate 100 MG CAPSULE PO PRN (11:29)
--- NOTE | 2016-09-17 11:57 | Infectious Disease Consult ---
Date of Encounter: 09/17/16 Time of Encounter: 11:55 Assessment and Plan (1) AIDS (acquired immune deficiency syndrome) Status: Acute Assessment and plan: Newly-diagnosed HIV in June 2016. Unsure how he contracted the disease. Denies IV drug use, but does report having unprotected sex with female partners with unknown HIV status. He denies any MSM sexual practices or ever being incarcerated. CD4 count 20 in June - has not started treatment due to not having insurance. Hepatitis status unknown. He does not know if he has ever had Hepatitis A or B vaccinations. He denies any other known chronic infections (TB, Hepatitis, STI, etc.) Check CD4 count and HIV viral load --> pending. Send specimen for HIV genotypic resistance. Check Quantiferon Gold. Check Hgb A1C. Check fasting lipid profile. Check RPR with reflex titer. Send urine for GC and Chlamydia DNA testing. Check Hepatitis profile. At this point, we do not need to start ART. Due to Dr. Quiroz being out on medical leave, the patient will need referred to outside ID service to initiate ART. We will be glad to follow him once his ART regimen is initiated and stabilized. Consult social work for community assistance programs with HIV medications and follow-up. (2) Pneumonia Status: Acute Assessment and plan: Causative organism unclear. Does not appear hypoxic. Currently on RA. Chest x-ray completed in the ED negative for infiltrate, but based on the patient's clinical picture and severely depleted immune system, concern for CAP. S. pneumo and Legionella UAT negative. WBC normal until today (low today). Given the patient's compromised immune system, it is likely that his body is unable to mount an adequate immune response to develop leukocytosis. RIP negative. Send sputum for culture. Check for Pneumocystis per PCR. Continue Rocephin 2 grams IV daily. Continue Zithromax 500mg IV daily. Duration of treatment depends on the clinical picture, but likely 7 days. Recommend switching to Zithromax and Bactrim PO when ready for discharge. Monitor renal function and for drug toxicity and dose-adjust antibiotics. The patient has the potential decompensate very quickly. Recommend close monitoring. If the patient begins to decompensate or develops hypoxia, consider transferring to outside facility where full ID support is available. Qualifiers: Pneumonia type: due to unspecified organism Laterality: unspecified laterality Lung location: unspecified part of lung Qualified Code(s): J18.9 - Pneumonia, unspecified organism (3) Acute exacerbation of chronic obstructive airways disease Status: Acute Assessment and plan: Management per the primary team. (4) Visual floaters Status: Chronic Assessment and plan: Etiology not clear, but given the patient's severely compromised immune status, concern for CMV retinitis. Recommend opthalmology consult for dilated eye exam. Qualifiers: Laterality: bilateral Qualified Code(s): H43.393 - Other vitreous opacities , bilateral (5) Anxiety Status: Chronic (6) Hyperthyroidism Status: Chronic (7) Depression Status: Acute Qualifiers: Depression Type: unspecified Qualified Code(s): F32.9 - Major depressive disorder, single episode, unspecified Infectious Disease HPI - Data of Consult Patient: new to practice Consult date: 09/17/16 Requesting Physician: Jean-Pierre Caballero DO Primary Care Provider: PCP NO - Consult Narrative Reason for consult: CAP in untreated HIV patient History of present illness: Mr. Owen is a 46 year old male with a past medical history of COPD, newly diagnosed HIV, Graves' disease, anxiety, and depression. The patient was admitted to the hospital September 15 for acute exacerbation of COPD. We are consulted September 17 for further evaluation and treatment recommendations regarding newly diagnosed HIV and rheumatic recommendations. The patient's a 38-year-old male past medical history as stated above. The patient was managed in the hospital on September 15 for acute exacerbation of COPD after he presented to the emergency department with a 5 day history of shortness of breath, subjective chills, and a cough productive of white sputum. Upon arrival, patient was tachycardic and tachypneic. Laboratory studies revealed a normal white blood cell count. Chest x-ray was negative, based on the clinical picture the patient was thought to have a community acquired pneumonia. LFTs were normal. TSH was 0. Blood cultures were obtained 2 sets are currently no growth to date. The patient was started on empiric IV Zithromax and IV Rocephin and was admitted to the hospital for further evaluation and treatment. Since admission, respiratory infectious panel was checked and it was negative. Legionella and strep no urinary antigen tests were both negative as well. The patient's white blood cell count has gone down to 4.1. All other labs remained normal. The patient states he was newly diagnosed with HIV back in June, but due to lack of insurance he has not sought any kind of treatment for this. The patient's unsure how he contracted the disease. He denies any IV drug use now or in the past, but he does report unprotected sex with female partners. He reports 2 female partners within the last 12 months , both of which there are HIV status is unknown. At diagnosis, the patient's CD4 count was checked and was 20. Clinically, the patient states that he feels better no shortness of breath is improved. He does report that he still coughing up a white sputum. He reported subjective fevers, but denied chills or rigors. He denies any headache or neck pain. He does report bilateral visual floaters admitting got ongoing for several months. He denies any congestion, earache, or sore throat. He reports pain in his chest with cough, but otherwise denies. He reports shortness of breath without exertion. He states that he had abdominal pain with coughing as well. He denies any nausea, vomiting, diarrhea, or constipation. He denies any urinary complaints or penile discharge or lesions. He reports multiple scabbed lesions to the upper and lower extremities due to scratching. He denies any weakness or dizziness. Denies any difficulty concentrating. Denies any oral thrush. The patient lives at home with his friend. He is currently unemployed and on disability. He denies any recent travel, but states he recently moved from [place] back in February. CC: Jean-Pierre Caballero, DO Past Med Surg Social Fam HX - Past Medical History Attestation: Yes The following information was validated with the patient. Source: patient, old records reviewed, nursing notes reviewed Medical history: COPD, HIV/AIDS (Diagnosed in Jun 2016, untreated), thyroid disease Psychiatric history: anxiety, depression, previous psychiatric hospitalization - Past Surgical History Surgical History: non-contributory, other (Right hand and elbow surgeries) - Social History Smoking Status: Current every day smoker Packs per day: 1/4 Smokeless Tobacco Status: No Alcohol use: occasionally Drug use: marijuana Occupational status: disabled Current living situation: Home - Independent Activity Level: Independent ambulation Recent Out of Country Travel Within the Last 8 Weeks: No Exposure or Possible Exposure to Illness During Travel: No - Family History Mother Family Member Ethnicity: Non- Living Status: Hx Family Cardiac Disorders: No Hx Family Respiratory Disorders: No Hx Family Cancer: No Hx Family GI Disorders: No Hx Family Genitourinary Disorders: Yes (Kidney problem) Hx Family Endocrine Disorder: No Hx Family Neuromuscular Disorders: No Hx Family Neurologic Disorders: No Hx Family HEENT Disorders: No Hx Family Autoimmune Disorders: No Father Hx Family Cardiac Disorders: Yes Infectious Disease-CN:Meds Atenolol [Tenormin] 12.5 mg PO DAILY tablet 07/05/16 [Rx] Methimazole [Tapazole] 5 mg PO TID tablet 07/05/16 [Rx] Omeprazole [PriLOSEC] 20 mg PO DAILY@0630 capsule.dr 07/05/16 [Rx] Tramadol HCl [Ultram] 50 mg PO BID PRN 07/05/16 [History] BuPROPion SR (12 HR) [Wellbutrin SR] 150 mg PO QAM #30 tablet.er 07/06/16 [Rx] HydrOXYzine Pamoate 50 mg PO QID PRN #120 capsule 07/06/16 [Rx] LORazepam [Ativan] 0.5 mg PO HS PRN #30 tablet 07/06/16 [Rx] Mirtazapine [Remeron] 30 mg PO HS #60 tablet 07/06/16 [Rx] Quetiapine Fumarate [Seroquel] 200 mg PO HS #60 tablet 07/06/16 [Rx] Cyclobenzaprine [Flexeril] 10 mg PO TID #15 tablet 08/21/16 [Rx] Allergies acetaminophen [From Tylenol] Adverse Reaction (Verified 09/15/16 18:00) Rash ibuprofen Adverse Reaction (Verified 09/15/16 18:00) Rash All systems: reviewed and no additional remarkable complaints except as stated Exam - Constitutional Vitals: Temp Pulse Resp BP Pulse Ox 97.4 F L 62 15 105/75 95 09/17/16 07:15 09/17/16 07:15 09/17/16 07:15 09/17/16 07:15 09/17/16 08:24 General appearance: cooperative, no acute distress, thin - Head Head exam: Present: atraumatic, normal inspection, normocephalic - Eye Eye exam: Present: EOMI, normal appearance Pupils: Present: normal accommodation, PERRL - ENT ENT exam: Present: mucous membranes moist Additional comments: No thrush or other oral lesions noted. Patient has previously had all teeth surgically removed. No evidence of gum disease noted. - Neck Neck exam: Present: full ROM, normal inspection. Absent: lymphadenopathy - Respiratory Respiratory exam: Present: CTAB. Absent: rales, rhonchi, stridor, wheezes - Cardiovascular Cardiovascular exam: Present: RRR, +S1, +S2 - GI/Abdominal GI/Abdominal exam: Present: normal bowel sounds, soft. Absent: distended, tenderness - Extremities Exam Extremities exam: Present: full ROM, normal capillary refill. Absent: joint swelling, tenderness Additional comments: Multiple scabbed lesions noted to the extremities x 4 that the patient attributes to him scratching. No erythema, purulent drainage, or warmth noted. - Back Exam Back exam: Present: normal inspection. Absent: paraspinal tenderness, vertebral tenderness - Neurological Exam Neurological exam: Present: alert, oriented X3, no focal deficits, strengths equal and symetr throughout - Psychiatric Psychiatric exam: Present: normal affect, normal mood - Skin Skin exam: Present: dry, warm Additional comments: Multiple scabbed lesions noted to the BUE and BLE. No erythema, drainage, or warmth noted. Infectious Disease CN: Results - Labs CBC & Chem 7: 09/17/16 04:01 09/17/16 04:01 Cultures: Cultures 09/16/16 04:00 Legionella Antigen - Final Urine,Clean Catch Streptococcus pneumoniae Antigen (M - Final Serology: Serology 09/16/16 Range/Units 23:11 Chlamy pneumoniae PCR Not Detected (Not Detect) Adenovirus (PCR) Not Detected (Not Detect) B. pertussis DNA (PCR) Not Detected (Not Detect) Coronavirus OC43 (PCR) Not Detected (Not Detect) Coronavirus HKU1 (PCR) Not Detected (Not Detect) Coronavirus 229E (PCR) Not Detected (Not Detect) Coronavirus NL63 (PCR) Not Detected (Not Detect) Human Metapneumovirus Not Detected (Not Detect) Influenza A (H1) PCR Not Detected (Not Detect) Influ A (H1N1/09) PCR Not Detected (Not Detect) Influenza A (H3) PCR Not Detected (Not Detect) Influenza A Untype (PCR) Not Detected (Not Detect) Influenza Type B (PCR) Not Detected (Not Detect) M.pneumoniae DNA (PCR) Not Detected (Not Detect) Parainfluenza 1 (PCR) Not Detected (Not Detect) Parainfluenza 2 (PCR) Not Detected (Not Detect) Parainfluenza 3 (PCR) Not Detected (Not Detect) Parainfluenza 4 (PCR) Not Detected (Not Detect) RSV (PCR) Not Detected (Not Detect) Entero/Rhino (PCR) Not Detected (Not Detect) Consult Discharge Plan - Plan Referrals: NO,PCP [Primary Care Provider] -
[2016-09-17 15:00] LABS: Hemoglobin A1C 4.8 %
[2016-09-17 15:24] LABS: Chol/HDL Ratio 2.3 (0-4.9)
[2016-09-17 15:36] LABS: Hepatitis A Antibody IgM Nonreactive (Nonreactive); Hepatitis B Core IgM Nonreactive (Nonreactive); Hepatitis B Surface Antigen Nonreactive (Nonreactive); Hepatitis C Virus Antibody Nonreactive (Nonreactive)
--- NOTE | 2016-09-17 19:09 | Internal Med Progress Note ---
Date of Encounter: 09/17/16 Time of Encounter: 10:00 - Assessment and plan (1) Acute exacerbation of chronic obstructive airways disease Current Visit: Yes Status: Acute Assessment and plan: Less wheezing today. Continue abx, aerosols and low dose steroid. (2) Pneumonia Current Visit: Yes Status: Acute Assessment and plan: Repeat 2 view CXR. Continue abs. Appreciate ID input. Qualifiers: Pneumonia type: due to unspecified organism Laterality: unspecified laterality Lung location: unspecified part of lung Qualified Code(s): J18.9 - Pneumonia, unspecified organism (3) Hyperthyroidism Current Visit: Yes Status: Chronic Assessment and plan: Methimazole restarted. (4) Malnutrition Current Visit: No Status: Chronic Assessment and plan: Nutritional support. (5) HIV infection Current Visit: No Status: Chronic Assessment and plan: Appreciate ID input. Labs ordered. - Subjective Interval history: Mr. Owen is currently admitted for acute community acquired pneumonia. He is moderate to high risk due to potential for worsening respiratory status. Mr. Owen is coughing a lot. No fever or chills. Bringing up sputum. No new issues last night. Appreciate ID input. - Constitutional Vitals: Temp Pulse Resp BP Pulse Ox 97.6 F 80 18 116/73 95 09/17/16 18:45 09/17/16 18:45 09/17/16 18:45 09/17/16 18:45 09/17/16 16:16 General appearance: Present: cooperative, disheveled, A&O X 3, answers questions appropriately - Head Head exam: Present: normocephalic - Eye Eye exam: Present: conjuntiva pink - ENT ENT exam: Present: mucous membranes moist - Respiratory Respiratory exam: Present: rhonchi, wheezes - Cardiovascular Cardiovascular exam: Present: RRR. Absent: tachycardia - GI/Abdominal GI/Abdominal exam: Present: soft. Absent: tenderness - Extremities Exam Extremities exam: Present: warm. Absent: pedal edema - Neurological Exam Neurological exam: Present: alert, oriented X3, no focal deficits - Psychiatric Psychiatric exam: Present: normal affect, normal mood - Skin Skin exam: Present: dry, warm. Absent: rash Internal Medicine: Result - Labs CBC & Chem 7: 09/17/16 04:01 09/17/16 04:01 Labs: Short CBC 09/17/16 Range/Units 04:01 WBC 4.1 L (4.3-11.1) K/mcL Hgb 13.2 (12.9-16.9) g/dL Hct 37.3 L (37.5-50.1) % Plt Count 257 (140-400) K/mcL BMP 09/17/16 04:01 Sodium 141 Potassium 4.0 Chloride 111 H Carbon Dioxide 25 BUN 12 Creatinine 0.61 L Glucose 150 H Calcium 8.5 L Liver Function 09/17/16 Range/Units 04:01 Total Bilirubin 0.7 (0.2-1.2) mg/dL AST 20 (5-34) Units/L ALT 12 (0-55) Units/L Alkaline Phosphatase 56 (38-126) Units/L Albumin 2.8 L D (3.5-5.0) g/dL - ABG Interpretation ABG results: PT/INR, D-dimer PT 12.3 Seconds (9.4-12.1) H 09/16/16 05:45 Consult Discharge Plan - Plan Referrals: NO,PCP [Primary Care Provider] -
[2016-09-17] MEDS: Azithromycin 500 MG in D5% in Water 250 ML IVPB SCH (19:57)
[2016-09-17] MEDS: Mirtazapine 15 MG TABLET PO SCH (19:57)
[2016-09-18] MEDS: MethylPREDNISolone 40 MG/ML VIAL IVP SCH ×2 (05:14→17:00)
[2016-09-18] MEDS: BuPROPion SR (12 HR) 150 MG TABLET PO SCH (08:54)
[2016-09-18] MEDS: methIMAzole 5 MG TABLET PO SCH ×3 (08:54→22:27)
--- NOTE | 2016-09-18 09:22 | Internal Med Progress Note ---
Date of Encounter: 09/18/16 Time of Encounter: 09:20 - Assessment and plan (1) Acute exacerbation of chronic obstructive airways disease Current Visit: Yes Status: Acute Assessment and plan: Patient is admitted with acute exacerbation of her COPD. Still has a shortness of breath. Presently on antibiotics. Ceftriaxone/azithromycin: Day 3. Plan: We will continue antibiotics for now. We will continue present treatment for now. (2) Hyperthyroidism Current Visit: No Status: Acute Assessment and plan: We restarted methimazole. Heart rate is stable. Noted that TSH is 0. (3) HIV infection Current Visit: No Status: Chronic Assessment and plan: Infectious diseases on the board. We will follow the recommendation. Patient needs to be evaluated by infectious diseases Department to tertiary care center where he will have more options/opportunities in terms of ART (4) Malnutrition Current Visit: No Status: Chronic Assessment and plan: Nutritional support. (5) DVT prophylaxis Current Visit: Yes Status: Acute Assessment and plan: EPCD Medical decision making: This patient has a moderate to severe risk of worsening infection in view of his underlying immune status. - Subjective Interval history: Patient seen and examined. Chart reviewed. Patient still coughing. Patient is short of breath on minimal exertion. Patient denies chest pain, abdominal pain, diarrhea or vomiting. - Constitutional Vitals: Temp Pulse Resp BP Pulse Ox 97.7 F 66 15 110/76 97 09/18/16 07:49 09/18/16 07:49 09/18/16 07:49 09/18/16 07:49 09/18/16 07:49 General appearance: Present: cooperative, disheveled, A&O X 3, answers questions appropriately - Head Head exam: Present: atraumatic, normocephalic - Eye Eye exam: Present: PERRL, conjuntiva pink, sclera anicteric Pupils: Present: PERRL - Neck Neck exam general surgery: Present: supple, trachea midline. Absent: lymphadenopathy - Respiratory Respiratory exam: Present: CTAB. Absent: accessory muscle use, rales, rhonchi, wheezes - Cardiovascular Cardiovascular exam: Present: RRR, +S1, +S2. Absent: diastolic murmur, gallop, rubs, systolic murmur - GI/Abdominal GI/Abdominal exam: Present: normal bowel sounds, soft, no peritoneal signs. Absent: distended, tenderness - Extremities Exam Extremities exam: Present: warm, radial pulses palpable and symetrical. Absent : calf tenderness, cyanotic, pedal edema - Neurological Exam Neurological exam: Present: CN II-XII intact, oriented X3, no focal deficits. Absent: pronater drift, facial droop, speech deficit - Skin Skin exam: Present: dry, intact Internal Medicine: Result - Labs CBC & Chem 7: 09/17/16 04:01 09/17/16 04:01 - ABG Interpretation ABG results: PT/INR, D-dimer PT 12.3 Seconds (9.4-12.1) H 09/16/16 05:45 Consult Discharge Plan - Plan Referrals: NO,PCP [Primary Care Provider] -
--- NOTE | 2016-09-18 11:46 | Infectious Disease Progress No ---
Date of Encounter: 09/18/16 Time of Encounter: 11:44 - Assessment and Plan (1) AIDS (acquired immune deficiency syndrome) Current Visit: No Status: Acute Newly-diagnosed HIV in June 2016. Unsure how he contracted the disease. Denies IV drug use, but does report having unprotected sex with female partners with unknown HIV status. He denies any MSM sexual practices or ever being incarcerated. CD4 count 20 in June - has not started treatment due to not having insurance. Repeat CD4 count pending. He does not know if he has ever had Hepatitis A or B vaccinations. He thinks he received a PNA vaccine last fall. He states he did receive a flu shot. He denies any other known chronic infections (TB, Hepatitis, STI, etc.) Check CD4 count and HIV viral load --> pending. Send specimen for HIV genotypic resistance--> pending. Check Quantiferon Gold--> pending. Check Hgb A1C --> 4.8. Check fasting lipid profile --> normal. Check RPR with reflex titer--> negative. Send urine for GC and Chlamydia DNA testing--> not sent, advised nursing staff to send 1st stream urine today. Check Hepatitis profile.--> nonreactive. At this point, we do not need to start ART. Due to Dr. Quiroz being out on medical leave, the patient will need referred to outside ID service to initiate ART. We will be glad to follow him once his ART regimen is initiated and stabilized. Consult social work for community assistance programs with HIV medications and follow-up. Patient states he will need assistance with transportation to his ID appointments if in [place]. Discussed this with JB Waters who states the patient is affiliated with [facility] and they offer intensive case management. She states the patient should also qualify for assistance with transportation through [facility]. (2) Pneumonia Current Visit: Yes Status: Acute Causative organism unclear. Does not appear hypoxic. Currently on RA. Chest x-ray completed in the ED negative for infiltrate, but based on the patient's clinical picture and severely depleted immune system, concern for CAP. S. pneumo and Legionella UAT negative. WBC normal until yesterday (low at 4.1). Given the patient's compromised immune system, it is likely that his body is unable to mount an adequate immune response to develop leukocytosis. Repeat CBC in the AM. RIP negative. Send sputum for culture --> gram stain shows GPC. Final ID and sensitivity pending. Check for Pneumocystis per PCR. --> discussed with micro. Need an additional sputum specimen for this due to not having enough specimen from the sputum submitted yesterday. Continue Rocephin 2 grams IV daily. Continue Zithromax 500mg IV daily. Duration of treatment depends on the clinical picture, but likely 7 days. Recommend switching to Zithromax and Bactrim PO when ready for discharge. Monitor renal function and for drug toxicity and dose-adjust antibiotics. The patient has the potential decompensate very quickly. Recommend close monitoring. If the patient begins to decompensate or develops hypoxia, consider transferring to outside facility where full ID support is available. Qualifiers: Pneumonia type: due to unspecified organism Laterality: unspecified laterality Lung location: unspecified part of lung Qualified Code(s): J18.9 - Pneumonia, unspecified organism (3) Acute exacerbation of chronic obstructive airways disease Current Visit: Yes Status: Acute Management per the primary team. (4) Visual floaters Current Visit: Yes Status: Chronic Etiology not clear, but given the patient's severely compromised immune status, concern for CMV retinitis. Recommend opthalmology consult for dilated eye exam. Qualifiers: Laterality: bilateral Qualified Code(s): H43.393 - Other vitreous opacities , bilateral (5) Anxiety Current Visit: Yes Status: Chronic (6) Hyperthyroidism Current Visit: Yes Status: Chronic (7) Depression Current Visit: No Status: Acute Qualifiers: Depression Type: unspecified Qualified Code(s): F32.9 - Major depressive disorder, single episode, unspecified - Subjective Interval history: Patient seen and examined. No acute events noted overnight. Patient states he feels better this morning. Denies fevers or chills or rigors. Denies chest pain and states that his shortness of breath improved. States he still coughing, but states is nonproductive. Denies any nausea, vomiting, diarrhea, or constipation. Denies any urinary complaints. Denies abdominal pain and states his appetite is good. Denies any oral thrush or new skin lesions. Infect Dis PN-Objective Data - Labs CBC & Chem 7: 09/17/16 04:01 09/17/16 04:01 Labs: Laboratory Results - last 24 hr 09/17/16 09/17/16 09/17/16 14:23 14:23 14:23 Est Mean Plasma Glucose 91 Hemoglobin A1c 4.8 Triglycerides 97 Cholesterol 136 LDL Cholesterol, Calc 59 VLDL Cholesterol, Calc 19 HDL Cholesterol 58 Cholesterol/HDL Ratio 2.3 T.pallidum Ab Interpret NEGATIVE Hepatitis A IgM Ab Hep Bs Antigen Hep B Core IgM Ab Hepatitis C Ab Screen 09/17/16 14:23 Est Mean Plasma Glucose Hemoglobin A1c Triglycerides Cholesterol LDL Cholesterol, Calc VLDL Cholesterol, Calc HDL Cholesterol Cholesterol/HDL Ratio T.pallidum Ab Interpret Hepatitis A IgM Ab Nonreactive Hep Bs Antigen Nonreactive Hep B Core IgM Ab Nonreactive Hepatitis C Ab Screen Nonreactive Cultures: Cultures 09/17/16 17:35 Sputum Culture - Preliminary Sputum 09/16/16 04:00 Legionella Antigen - Final Urine,Clean Catch Streptococcus pneumoniae Antigen (M - Final Serology 09/17/16 09/17/16 09/16/16 Range/Units 14:23 14:23 23:11 T.pallidum Ab Interpret NEGATIVE (NEGATIVE) Chlamy pneumoniae PCR Not Detected (Not Detect) Adenovirus (PCR) Not Detected (Not Detect) B. pertussis DNA (PCR) Not Detected (Not Detect) Coronavirus OC43 (PCR) Not Detected (Not Detect) Coronavirus HKU1 (PCR) Not Detected (Not Detect) Coronavirus 229E (PCR) Not Detected (Not Detect) Coronavirus NL63 (PCR) Not Detected (Not Detect) Hepatitis A IgM Ab Nonreactive (Nonreactive) Hep Bs Antigen Nonreactive (Nonreactive) Hep B Core IgM Ab Nonreactive (Nonreactive) Hepatitis C Ab Screen Nonreactive (Nonreactive) Human Metapneumovirus Not Detected (Not Detect) Influenza A (H1) PCR Not Detected (Not Detect) Influ A (H1N1/09) PCR Not Detected (Not Detect) Influenza A (H3) PCR Not Detected (Not Detect) Influenza A Untype (PCR) Not Detected (Not Detect) Influenza Type B (PCR) Not Detected (Not Detect) M.pneumoniae DNA (PCR) Not Detected (Not Detect) Parainfluenza 1 (PCR) Not Detected (Not Detect) Parainfluenza 2 (PCR) Not Detected (Not Detect) Parainfluenza 3 (PCR) Not Detected (Not Detect) Parainfluenza 4 (PCR) Not Detected (Not Detect) RSV (PCR) Not Detected (Not Detect) Entero/Rhino (PCR) Not Detected (Not Detect) - Impressions Impressions Chest X-Ray 09/18/16 07:00 IMPRESSION: No acute cardiopulmonary disease. D/ / Lucas Antonio MD / Lucas Antonio MD Interpreting Provider: Lucas Antonio MD Exam - Constitutional Vitals: Temp Pulse Resp BP Pulse Ox 97.7 F 66 15 110/76 97 09/18/16 07:49 09/18/16 07:49 09/18/16 07:49 09/18/16 07:49 09/18/16 07:49 General appearance: cooperative, no acute distress, thin - Head Head exam: Present: atraumatic, normal inspection, normocephalic - Eye Eye exam: Present: EOMI, normal appearance Pupils: Present: normal accommodation, PERRL - ENT ENT exam: Present: mucous membranes moist Additional comments: No oral thrush or lesions noted. - Neck Neck exam: Present: normal inspection - Respiratory Respiratory exam: Present: CTAB. Absent: rales, rhonchi, wheezes - Cardiovascular Cardiovascular exam: Present: RRR, +S1, +S2 - GI/Abdominal GI/Abdominal exam: Present: normal bowel sounds, soft. Absent: distended, tenderness - Extremities Exam Extremities exam: Present: normal inspection. Absent: joint swelling, pedal edema, tenderness - Back Exam Back exam: Present: normal inspection. Absent: paraspinal tenderness, vertebral tenderness - Neurological Exam Neurological exam: Present: alert, oriented X3, no focal deficits - Psychiatric Psychiatric exam: Present: normal affect, normal mood - Skin Skin exam: Present: dry, intact, normal color, warm Additional comments: Multiple scabbed lesions noted to bilateral upper and bilateral lower extremities. No purulent drainage or erythema noted. Consult Discharge Plan - Plan Referrals: Stella Hawkins DO [Resident] - 10/26/16 1:30 pm
[2016-09-18] MEDS: Mirtazapine 15 MG TABLET PO SCH (22:27)
[2016-09-18] MEDS: Ketorolac 30 MG/ML VIAL IVP PRN (22:27)
[2016-09-18] MEDS: Azithromycin 500 MG in D5% in Water 250 ML IVPB SCH (22:27)
[2016-09-19 04:20] LABS: BUN/Creatinine Ratio 25 (6-26); Blood Urea Nitrogen 15 mg/dL (8-26); Carbon Dioxide 27 mEq/L (19-29); Chloride 105 mEq/L (98-109); Glucose 116 mg/dL (70-99); Osmolality,Calculated 290 (280-300); Potassium 3.8 mEq/L (3.5-4.5); Sodium 139 mEq/L (136-145); eGFR For African Americans > 60 (> 60); eGFR For Non-African Americans > 60 (> 60)
[2016-09-19 04:23] LABS: Basophils % 0.3 %; Hematocrit 39.2 % (37.5-50.1); Hemoglobin 13.9 g/dL (12.9-16.9); Immature Granulocytes % 1.3 % (0-4); Lymphocytes # 1.2 K/mcL (0.6-4.6); Mean Corpuscular HGB Conc 35.5 g/dL (31.6-35.5); Mean Corpuscular Hemoglobin 31.4 pg (28.0-33.3); Mean Corpuscular Volume 88.5 fL (83.0-100.0); Mean Platelet Volume 9.4 fL (9.4-12.4); Monocytes # 0.5 K/mcL (0.0-1.3); Monocytes % 8.7 %; Neutrophils # 4.4 K/mcL (1.6-8.9); Platelet Count 312 K/mcL (140-400); Red Blood Count 4.43 M/mcL (4.19-5.50); Red Cell Distribution Width 13.2 % (11.5-14.5); Segmented Neutrophils % 70.7 %
[2016-09-19] MEDS: MethylPREDNISolone 40 MG/ML VIAL IVP SCH (06:39)
[2016-09-19 07:59] VITALS: BP 116/74
[2016-09-19] MEDS: BuPROPion SR (12 HR) 150 MG TABLET PO SCH (09:43)
[2016-09-19] MEDS: methIMAzole 5 MG TABLET PO SCH (09:43)
--- NOTE | 2016-09-19 10:12 | Infectious Disease Progress No ---
Date of Encounter: 09/19/16 Time of Encounter: 10:10 - Assessment and Plan (1) AIDS (acquired immune deficiency syndrome) Current Visit: No Status: Acute Newly-diagnosed HIV in June 2016. Unsure how he contracted the disease. Denies IV drug use, but does report having unprotected sex with female partners with unknown HIV status. He denies any MSM sexual practices or ever being incarcerated. CD4 count 20 in June - has not started treatment due to not having insurance. Repeat CD4 count 13. He does not know if he has ever had Hepatitis A or B vaccinations. He thinks he received a PNA vaccine last fall. He states he did receive a flu shot. He denies any other known chronic infections (TB, Hepatitis, STI, etc.) Check CD4 count and HIV viral load --> CD4 13. HIV VL pending. Send specimen for HIV genotypic resistance--> pending. Check Quantiferon Gold--> pending. Check Hgb A1C --> 4.8. Check fasting lipid profile --> normal. Check RPR with reflex titer--> negative. Send urine for GC and Chlamydia DNA testing--> not sent, advised nursing staff again to send 1st stream urine today. Check Hepatitis profile.--> nonreactive. At this point, we do not need to start ART. Due to Dr. Quiroz being out on medical leave, the patient will need referred to outside ID service to initiate ART. We will be glad to follow him once his ART regimen is initiated and stabilized. We will send the referral to [facility]. Consult social work for community assistance programs with HIV medications and follow-up. Patient states he will need assistance with transportation to his ID appointments if in [place]. Discussed this with JB Waters who states the patient is affiliated with [facility] and they offer intensive case management. She states the patient should also qualify for assistance with transportation through [facility]. (2) Pneumonia Current Visit: Yes Status: Acute Causative organism unclear. Does not appear hypoxic. Currently on RA. Chest x-ray completed in the ED and repeat CXR negative for infiltrate, but based on the patient's clinical picture and severely depleted immune system, concern for CAP. S. pneumo and Legionella UAT negative. WBC normal. Given the patient's compromised immune system, it is likely that his body is unable to mount an adequate immune response to develop leukocytosis. RIP negative. Send sputum for culture --> gram stain shows GPC, likely Staph aureus. Final ID and sensitivity pending. Check for Pneumocystis per PCR. --> pending. Continue Rocephin 2 grams IV daily. Continue Zithromax 500mg IV daily. Duration of treatment depends on the clinical picture, but likely 7 days total. Recommend switching to Zithromax and Bactrim PO when ready for discharge. Monitor renal function and for drug toxicity and dose-adjust antibiotics. The patient has the potential decompensate very quickly. Recommend close monitoring. If the patient begins to decompensate or develops hypoxia, consider transferring to outside facility where full ID support is available. Qualifiers: Pneumonia type: due to unspecified organism Laterality: unspecified laterality Lung location: unspecified part of lung Qualified Code(s): J18.9 - Pneumonia, unspecified organism (3) Acute exacerbation of chronic obstructive airways disease Current Visit: Yes Status: Acute Management per the primary team. (4) Visual floaters Current Visit: Yes Status: Chronic Etiology not clear, but given the patient's severely compromised immune status, concern for CMV retinitis. Recommend opthalmology consult for dilated eye exam. Qualifiers: Laterality: bilateral Qualified Code(s): H43.393 - Other vitreous opacities , bilateral (5) Anxiety Current Visit: Yes Status: Chronic (6) Hyperthyroidism Current Visit: Yes Status: Chronic (7) Depression Current Visit: No Status: Acute Qualifiers: Depression Type: unspecified Qualified Code(s): F32.9 - Major depressive disorder, single episode, unspecified - Subjective Interval history: Patient seen and examined. No acute events noted overnight. Patient states he feels better this morning. Denies fevers or chills or rigors. Denies chest pain and states that his shortness of breath improved. States he still coughing, but states is nonproductive and seems to be less frequent. Denies any nausea, vomiting, diarrhea, or constipation. Denies any urinary complaints. Denies abdominal pain and states his appetite is good. Denies any oral thrush or new skin lesions. Infect Dis PN-Objective Data - Labs CBC & Chem 7: 09/19/16 03:56 09/19/16 03:56 Labs: Laboratory Results - last 24 hr 09/16/16 09/19/1617 05:45 03:56 03:56 WBC 6.2 D RBC 4.43 Hgb 13.9 Hct 39.2 MCV 88.5 MCH 31.4 MCHC 35.5 RDW 13.2 Plt Count 312 MPV 9.4 Immature Gran % 1.3 Seg Neutrophils % 70.7 Lymphocytes % 19.0 Monocytes % 8.7 Eosinophils % 0.0 Basophils % 0.3 Neutrophils # 4.4 Lymphocytes # 1.2 Monocytes # 0.5 Eosinophils # 0.0 Basophils # 0.0 Sodium 139 Potassium 3.8 Chloride 105 Carbon Dioxide 27 BUN 15 Creatinine 0.60 L Est GFR ( Amer) > 60 Est GFR (Non-Af Amer) > 60 BUN/Creatinine Ratio 25 Glucose 116 H Calculated Osmolality 290 Calcium 9.0 Lymphocyte Subset Cmmnt SEE NOTE % CD4 Cells 3 L Absolute CD4 Count 13 L Cultures: Cultures 09/17/16 17:35 Sputum Culture - Preliminary Sputum Gram Positive Cocci 09/17/16 17:35 Acid Fast Stain - Final Sputum 09/16/16 04:00 Legionella Antigen - Final Urine,Clean Catch Streptococcus pneumoniae Antigen (M - Final Serology 09/17/16 09/17/16 09/16/16 Range/Units 14:23 14:23 23:11 T.pallidum Ab Interpret NEGATIVE (NEGATIVE) Chlamy pneumoniae PCR Not Detected (Not Detect) Adenovirus (PCR) Not Detected (Not Detect) B. pertussis DNA (PCR) Not Detected (Not Detect) Coronavirus OC43 (PCR) Not Detected (Not Detect) Coronavirus HKU1 (PCR) Not Detected (Not Detect) Coronavirus 229E (PCR) Not Detected (Not Detect) Coronavirus NL63 (PCR) Not Detected (Not Detect) Hepatitis A IgM Ab Nonreactive (Nonreactive) Hep Bs Antigen Nonreactive (Nonreactive) Hep B Core IgM Ab Nonreactive (Nonreactive) Hepatitis C Ab Screen Nonreactive (Nonreactive) Human Metapneumovirus Not Detected (Not Detect) Influenza A (H1) PCR Not Detected (Not Detect) Influ A (H1N1/09) PCR Not Detected (Not Detect) Influenza A (H3) PCR Not Detected (Not Detect) Influenza A Untype (PCR) Not Detected (Not Detect) Influenza Type B (PCR) Not Detected (Not Detect) M.pneumoniae DNA (PCR) Not Detected (Not Detect) Parainfluenza 1 (PCR) Not Detected (Not Detect) Parainfluenza 2 (PCR) Not Detected (Not Detect) Parainfluenza 3 (PCR) Not Detected (Not Detect) Parainfluenza 4 (PCR) Not Detected (Not Detect) RSV (PCR) Not Detected (Not Detect) Entero/Rhino (PCR) Not Detected (Not Detect) - Impressions Impressions Chest X-Ray 09/18/16 07:00 IMPRESSION: No acute cardiopulmonary disease. D/ / Lucas Antonio MD / Lucas Antonio MD Interpreting Provider: Lucas Antonio MD Exam - Constitutional Vitals: Temp Pulse Resp BP Pulse Ox 97.7 F 69 16 116/74 98 09/19/16 07:56 09/19/16 07:56 09/19/16 07:56 09/19/16 07:56 09/19/16 07:56 General appearance: cooperative, no acute distress, thin - Head Head exam: Present: atraumatic, normal inspection, normocephalic - Eye Eye exam: Present: EOMI, normal appearance, PERRL Pupils: Present: normal accommodation - ENT ENT exam: Present: mucous membranes moist Additional comments: No oral thrush noted. - Neck Neck exam: Present: normal inspection. Absent: lymphadenopathy - Respiratory Respiratory exam: Present: CTAB. Absent: rales, respiratory distress, rhonchi, wheezes - Cardiovascular Cardiovascular exam: Present: RRR, +S1, +S2 - GI/Abdominal GI/Abdominal exam: Present: normal bowel sounds, soft. Absent: distended, tenderness - Extremities Exam Extremities exam: Absent: joint swelling, pedal edema, tenderness Additional comments: Multiple scabbed lesions noted to the BUE and BLE - improved. - Neurological Exam Neurological exam: Present: alert, oriented X3, no focal deficits - Psychiatric Psychiatric exam: Present: normal affect, normal mood - Skin Skin exam: Present: dry, intact, normal color, warm Consult Discharge Plan - Plan Instructions: Chronic Obstructive Pulmonary Disease (GEN) Referrals: Stella Hawkins DO [Resident] - 10/26/16 1:30 pm Ludin Vieyra MD [Partnered Physician] - 09/21/16 9:00 am (HIV follow-up. Arrive a few minutes early to complete paperwork.) Prescriptions: Azithromycin [Zithromax] 600 mg PO 2XW #30 tablet Sulfamethoxazole/Trimeth DS [Bactrim DS] 1 each PO DAILY #30 tablet
[2016-09-19] MEDS: Ketorolac 30 MG/ML VIAL IVP PRN (12:25)
--- NOTE | 2016-09-19 12:55 | Discharge Summary ---
Date of Encounter: 09/19/16 Time of Encounter: 12:46 - Discharge Diagnosis (1) Acute exacerbation of chronic obstructive airways disease Priority: Primary Status: Acute (2) Hyperthyroidism Priority: Secondary Status: Acute (3) HIV infection Priority: Secondary Status: Chronic (4) Malnutrition Priority: Secondary Status: Chronic (5) DVT prophylaxis Priority: Secondary Status: Acute - Discharge Medications Prescriptions: Azithromycin [Zithromax] 600 mg PO 2XW #30 tablet Sulfamethoxazole/Trimeth DS [Bactrim DS] 1 each PO DAILY #30 tablet Home Medications: Atenolol [Tenormin] 12.5 mg PO DAILY tablet 07/05/16 [Rx] Methimazole [Tapazole] 5 mg PO TID tablet 07/05/16 [Rx] Omeprazole [PriLOSEC] 20 mg PO DAILY@0630 capsule.dr 07/05/16 [Rx] Tramadol HCl [Ultram] 50 mg PO BID PRN 07/05/16 [History] BuPROPion SR (12 HR) [Wellbutrin SR] 150 mg PO QAM #30 tablet.er 07/06/16 [Rx] LORazepam [Ativan] 0.5 mg PO HS PRN #30 tablet 07/06/16 [Rx] Mirtazapine [Remeron] 30 mg PO HS #60 tablet 07/06/16 [Rx] Quetiapine Fumarate [Seroquel] 200 mg PO HS #60 tablet 07/06/16 [Rx] Cyclobenzaprine [Flexeril] 10 mg PO TID #15 tablet 08/21/16 [Rx] Azithromycin [Zithromax] 600 mg PO 2XW #30 tablet 09/19/16 [Rx] Sulfamethoxazole/Trimeth DS [Bactrim DS] 1 each PO DAILY #30 tablet 09/19/16 [Rx ] Allergies/Adverse Reactions: Allergies acetaminophen [From Tylenol] Adverse Reaction (Verified 09/15/16 18:00) Rash ibuprofen Adverse Reaction (Verified 09/15/16 18:00) Rash Date of admission: 09/15/16 22:45 Primary care physician: PCP NO Consults: 09/16/16 02:02 Consult to Awning Installer [CONS] Routine Reason for SW Consult: HIV, not on treatment due to insurance issue. 09/16/16 02:04 Consult to Infectious Diseases [CONS] Routine Consulting Provider: Infectious Disease [place] Reason for Consult: HIV pt admitted for pneumonia. CD 4 count 20 in Jun 2016. Not on any antiviral or prophylactic Abx. Appreciate recommends & outpatient follow-up. Will call in the morning. Call Completed: No Discharging clinician: Dennis Guerra - Patient Status Disposition: Home, Self-Care Condition: Fair Functional capacity at discharge: independent ambulation Overall status at discharge: patient is progressing back to baseline - Discharge Instructions Follow Up With: Stella Hawkins DO [Resident] - 10/26/16 1:30 pm - Diet and Activity Activity: increase activity as tolerated Diet: low fat, low cholesterol, low salt diet Interval History: Mr. Owen is a 46 year old male with PMH of COPD, Graves' disease with hyperthyroidism, HIV diagnosed since April 2016, significant psychiatric disorders requiring multiple psychiatric hospitalizations. Patient presented to [place] [facility] ED with one-day history of persistent nonproductive cough and pleuric pain at chest and abdomen. It's associated with some shortness of breath, anorexia, nausea, dizziness/vertigo and chills. Patient reports night sweat only last night and one episode of diarrhea. Patient denies fever, recent travel or sick contact. Patient does have itchiness on bilateral forarms and shins with associated scratch ortiz. Patient was hospitalized in early June 2016 for tachycardia and was found to have CD4 count 20. Patient was discharged home with atenolol, methimazole, azithromycin and Bactrim and instructed to follow up with PCP for referral regarding HIV management. Per patient, he didn' t get his insurance until 3 weeks ago and therefore he currently is not on any medications (including psychiatric mediations) at all. 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 Patient is full code. Hospital course: Patient was hospitalized. It was noted that patient has a HIV positive. He was started on ceftriaxone/azithromycin. Infectious disease was consulted. Practitioner from infectious disease evaluated this patient and I am copying her note for the benefit of referral Center as we do not have ID specialist at this point. Following is a copy and paste from note is practitioner (infectious disease) "Newly-diagnosed HIV in June 2016. Unsure how he contracted the disease. Denies IV drug use, but does report having unprotected sex with female partners with unknown HIV status. He denies any MSM sexual practices or ever being incarcerated. CD4 count 20 in June - has not started treatment due to not having insurance. Repeat CD4 count 13. He does not know if he has ever had Hepatitis A or B vaccinations. He thinks he received a PNA vaccine last fall. He states he did receive a flu shot. He denies any other known chronic infections (TB, Hepatitis, STI, etc.) Check CD4 count and HIV viral load --> CD4 13. HIV VL pending. Send specimen for HIV genotypic resistance--> pending. Check Quantiferon Gold--> pending. Check Hgb A1C --> 4.8. Check fasting lipid profile --> normal. Check RPR with reflex titer--> negative. Send urine for GC and Chlamydia DNA testing--> not sent, advised nursing staff again to send 1st stream urine today. Check Hepatitis profile.--> nonreactive. At this point, we do not need to start ART. Due to Dr. Quiroz being out on medical leave, the patient will need referred to outside ID service to initiate ART. We will be glad to follow him once his ART regimen is initiated and stabilized. We will send the referral to [facility]. Consult social work for community assistance programs with HIV medications and follow-up. Patient states he will need assistance with transportation to his ID appointments if in [place]. Discussed this with JB Waters who states the patient is affiliated with [facility] and they offer intensive case management. She states the patient should also qualify for assistance with transportation through [facility]." Patient will be going home today. I understood that infectious disease outpatient clinic will call patient and updated him regarding his appointment at [facility]. Plan discussed with the patient and he verbalized understanding Prescriptions given for azithromycin/Bactrim At the point of discharge patient does not have any questions, concerns, updates or recommendations - Time Spent with Patient Total time spent providing and/or coordinating discharge services: - Constitutional Vitals: Temp Pulse Resp BP Pulse Ox 97.7 F 69 16 116/74 98 09/19/16 07:56 09/19/16 07:56 09/19/16 07:56 09/19/16 07:56 09/19/16 07:56 General appearance: Present: cooperative, disheveled, A&O X 3, answers questions appropriately - Head Head exam: Present: atraumatic, normocephalic - Eye Eye exam: Present: PERRL, conjuntiva pink, sclera anicteric Pupils: Present: PERRL - Neck Neck exam general surgery: Present: supple, trachea midline. Absent: lymphadenopathy - Respiratory Respiratory exam: Present: CTAB. Absent: accessory muscle use, rales, rhonchi, wheezes - Cardiovascular Cardiovascular exam: Present: RRR, +S1, +S2. Absent: diastolic murmur, gallop, rubs, systolic murmur - GI/Abdominal GI/Abdominal exam: Present: normal bowel sounds, soft, no peritoneal signs. Absent: distended, tenderness - Extremities Exam Extremities exam: Present: warm, radial pulses palpable and symetrical. Absent : calf tenderness, cyanotic, pedal edema - Neurological Exam Neurological exam: Present: CN II-XII intact, oriented X3, no focal deficits. Absent: pronater drift, facial droop, speech deficit - Skin Skin exam: Present: dry, intact
[2016-09-19 12:56] LABS: HIV-1 Viral Load Interp DETECTED (Not Detected)
--- NOTE | 2016-09-19 13:02 | Event Note ---
Date of Encounter: 09/19/16 Time of Encounter: 12:[address] Ludin Vieyra regarding getting the patient established with his office for HIV ART initiation. Patient can be seen this 09/21/16, at 0900. Notified SARIKA Ponce, the patient's primary nurse regarding this and she it let the patient know. Advised her to tell the patient to arrive a few minutes early to complete paperwork.
[2016-09-20 23:16] LABS: QuantiFERON Mitogen minus NIL >10.00 IU/mL; QuantiFERON-TB minus NIL 0.01 IU/mL (0.00-0.34)
[2016-09-21 12:56] LABS: QuantiFERON NIL 0.02 IU/mL; QuantiFERON-TB Gold In-Tube NEGATIVE (Negative)
[2016-09-22 10:35] LABS: Pneumocystis PCR NOT DETECTED
[2016-09-22 18:34] LABS: HLA-B57:01 Specimen WHOLE BLOOD
[2016-09-24 07:53] LABS: HLA-B57:01 Allele NEGATIVE
== END 2016-09-19 13:22 | disposition home or self-care (01) | DRG 140 ==
LOC: 2NENU 17:59 → EMEROO 17:59 → 2NENU 22:24 → SUATTDRO 22:45 → 2NENU 23:44
PROVIDERS: ADMIT Internal Medicine; ATTEND Internal Medicine

== ENCOUNTER 2017-02-24 23:52 | Inpatient (IN) ==
[2017-02-25 00:31] LABS: Basophils # 0.1 K/mcL (0.0-0.2); Basophils % 1.1 %; Eosinophils # 0.1 K/mcL (0.0-0.6); Eosinophils % 2.3 %; Hematocrit 46.9 % (37.5-50.1); Hemoglobin 16.8 g/dL (12.9-16.9); Immature Granulocytes % 0.5 % (0-4); Lymphocytes # 2.4 K/mcL (0.6-4.6); Lymphocytes % 42.6 %; Mean Corpuscular HGB Conc 35.8 g/dL (31.6-35.5); Mean Corpuscular Hemoglobin 33.1 pg (28.0-33.3); Mean Corpuscular Volume 92.5 fL (83.0-100.0); Mean Platelet Volume 8.6 fL (9.4-12.4); Monocytes # 0.5 K/mcL (0.0-1.3); Monocytes % 8.3 %; Neutrophils # 2.5 K/mcL (1.6-8.9); Platelet Count 281 K/mcL (140-400); Red Blood Count 5.07 M/mcL (4.19-5.50); Red Cell Distribution Width 12.5 % (11.5-14.5); Segmented Neutrophils % 45.2 %
--- NOTE | 2017-02-25 00:31 | Emergency Department Note ---
Disposition Clinical Impression: Suicidal ideation Disposition: Still a Patient Condition: Undetermined Referrals: Ludin Vieyra MD [Partnered Physician] - Forms: ED Satisfaction Letter Time of Disposition: 06:30 Psych HPI - General Chief Complaint: ED Psychiatric Symptoms Stated Complaint: 1A consult Time Seen by Provider: 02/24/17 23:56 Source: patient Mode of arrival: EMS Limitations: no limitations Nursing Notes Reviewed: Yes Vital Signs Reviewed: Yes - History of Present Illness HPI Narrative: 47-year-old male with history of depression arrives [facility] emergency department after his girlfriend broke up with him. The patient states that he became very depressed and went to jump off a bridge or commit suicide. The patient states he cannot do it at that time. He called EMS and comes to [facility] emergency department to seek help. The patient denies any other complaints at this time. He denies any plan other than jumping off the bridge which she stated he could not do this evening. The patient does admit to smoking marijuana today but denies any other intoxication. The patient is resting comfortably in the room at this time. Pt complaint: suicidal ideation, feels depressed Onset (ago): hour(s) (6) History of similar episodes: Yes Improves with: none Worsens with: none Context: recent drug abuse, significant life stressor Associated Psychiatric Symptoms: suicidal ideation Associated symptoms: Reports: denies other symptoms Traumatic symptoms: denies traumatic injury Treatments prior to arrival: none Self harm or harm to others: admits thoughts of self harm, has plan - Related Data Home Medications Medication Instructions Recorded Confirmed Tramadol HCl [Ultram] 50 mg PO BID PRN 07/05/16 09/16/16 Previous Rx's Medication Instructions Recorded Atenolol [Tenormin] 12.5 mg PO DAILY tablet 07/05/16 Omeprazole [PriLOSEC] 20 mg PO DAILY@0630 capsule. 07/05/16 methIMAzole [Tapazole] 5 mg PO TID tablet 07/05/16 BuPROPion SR (12 HR) [Wellbutrin 150 mg PO QAM #30 tablet.er 07/06/16 SR] LORazepam [Ativan] 0.5 mg PO HS PRN #30 tablet 07/06/16 Mirtazapine [Remeron] 30 mg PO HS #60 tablet 07/06/16 Quetiapine Fumarate [Seroquel] 200 mg PO HS #60 tablet 07/06/16 Cyclobenzaprine [Flexeril] 10 mg PO TID #15 tablet 08/21/16 Azithromycin [Zithromax] 600 mg PO 2XW #30 tablet 09/19/16 Sulfamethoxazole/Trimeth DS 1 each PO DAILY #30 tablet 09/19/16 [Bactrim DS] Allergies Allergy/AdvReac Type Severity Reaction Status Date / Time acetaminophen [From Tylenol] AdvReac Rash Verified 09/15/16 18:00 ibuprofen AdvReac Rash Verified 09/15/16 18:00 All systems ED: reviewed and negative except as stated. Constitutional: Denies: fever, chills, weakness, weight change Cardiovascular: Denies: chest pain, dyspnea on exertion Respiratory: Denies: dyspnea Gastrointestinal: Denies: abdominal pain, nausea, vomiting Musculoskeletal: Denies: back pain Psychiatric: Reports: depression, suicidal thoughts. Denies: anxiety, homicidal thoughts, auditory hallucinations, visual hallucinations Past Medical History - Past Medical History Attestation: Yes The following information was validated with the patient. Source: patient Medical history: Reports: COPD, HIV/AIDS (Diagnosed in Jun 2016, untreated), thyroid disease Surgical history: Reports: non-contributory, other (Right hand and elbow surgeries) Psychiatric history: Reports: anxiety, depression, previous psychiatric hospitalization - Social History Smoking Status: Current every day smoker Smokeless Tobacco Status: No Alcohol use: Reports: occasionally Drug use: Reports: marijuana Physical Exam - General Limitations: no limitations General appearance: alert, in no apparent distress - Head Head exam: atraumatic, normocephalic, normal inspection - Eye Eye exam: Present: normal appearance, PERRL, EOMI - ENT ENT exam: normal exam, normal oropharynx, mucous membranes moist - Neck Neck exam: Present: normal inspection, full ROM, trachea midline - Chest Chest inspection: Present: normal inspection, symmetric chest wall rise - Respiratory Respiratory exam: Present: normal lung sounds bilaterally - Cardiovascular Cardiovascular exam: Present: regular rate - Extremities Exam Extremities exam: Present: normal inspection, full ROM. Absent: tenderness, pedal edema - Neurological Exam Neurological exam: Present: alert, oriented X3 - Psychiatric Psychiatric exam: Present: depressed, flat affect, suicidal ideation. Absent: homicidal ideation Course - Reevaluation(s) Reevaluation #1: Patient's alcohol elevated. We will re-draw at 0800 for re-check for 1A evaluation. Vital Signs Temperature 97.4 F L 02/25/17 00:36 Pulse Rate 68 02/25/17 00:36 Respiratory Rate 16 02/25/17 00:36 Blood Pressure 147/85 02/25/17 00:36 O2 Sat by Pulse Oximetry 96 02/25/17 00:36 Temperature 97.4 F L 02/25/17 00:36 Pulse Rate 68 02/25/17 00:36 Respiratory Rate 16 02/25/17 00:36 Blood Pressure 147/85 02/25/17 00:36 O2 Sat by Pulse Oximetry 96 02/25/17 00:36 Oxygen Delivery Oxygen Delivery Room Air Psych - Lab Data Result diagrams: 02/25/17 00:25 02/25/17 00:25 Lab Results 02/25/17 02/25/17 02/25/17 Range/Units 00:25 00:25 00:26 WBC 5.5 (4.3-11.1) K/mcL RBC 5.07 (4.19-5.50) M/mcL Hgb 16.8 (12.9-16.9) g/dL Hct 46.9 (37.5-50.1) % MCV 92.5 (83.0-100.0) fL MCH 33.1 (28.0-33.3) pg MCHC 35.8 H (31.6-35.5) g/dL RDW 12.5 (11.5-14.5) % Plt Count 281 (140-400) K/mcL MPV 8.6 L (9.4-12.4) fL Immature Gran % 0.5 (0-4) % Seg Neutrophils % 45.2 % Lymphocytes % 42.6 % Monocytes % 8.3 % Eosinophils % 2.3 % Basophils % 1.1 % Neutrophils # 2.5 (1.6-8.9) K/mcL Lymphocytes # 2.4 (0.6-4.6) K/mcL Monocytes # 0.5 (0.0-1.3) K/mcL Eosinophils # 0.1 (0.0-0.6) K/mcL Basophils # 0.1 (0.0-0.2) K/mcL Sodium 142 (136-145) mEq/L Potassium 4.1 (3.5-4.5) mEq/L Chloride 104 (98-109) mEq/L Carbon Dioxide 26 (19-29) mEq/L BUN 7 L (8-26) mg/dL Creatinine 0.73 (0.72-1.25) mg/dL Est GFR ( Amer) > 60 (> 60) Est GFR (Non-Af Amer) > 60 (> 60) BUN/Creatinine Ratio 10 (6-26) Glucose 85 (70-99) mg/dL Calculated Osmolality 291 (280-300) Calcium 8.9 (8.6-10.8) mg/dL Urine Color Yellow (Yellow) Urine Clarity Clear (Clear) Urine pH 6.5 (5.0-8.0) pH Units Ur Specific [place] 1.011 (1.010-1.025) Urine Protein Negative (Neg-Trace) mg/dL Urine Glucose (UA) Normal (Normal) mg/dL Urine Ketones Negative (Negative) mg/dL Urine Blood Negative (Negative) Urine Nitrite Negative (Negative) Urine Bilirubin Negative (Negative) Urine Urobilinogen Normal (Normal) mg/dL Ur Leukocyte Esterase Negative (Negative) Salicylates < 5.0 L (15-30) mg/dL Urine Opiates Screen (Taumqd=061) ng/mL Acetaminophen < 1.0 L (10-30) mcg/mL Ur Barbiturates Screen (Zpmewg=736) ng/mL Ur Phencyclidine Scrn (Cutoff=25) ng/mL Ur Amphetamines Screen (Zzuknk=1932) ng/mL U Benzodiazepines Scrn (Qdfgha=091) ng/mL Urine Cocaine Screen (Cutoff= 300) ng/mL U Marijuana (THC) Screen (Cutoff = 50) ng/mL Ethyl Alcohol 293 H (0-10) mg/dL 02/25/17 Range/Units 00:26 WBC (4.3-11.1) K/mcL RBC (4.19-5.50) M/mcL Hgb (12.9-16.9) g/dL Hct (37.5-50.1) % MCV (83.0-100.0) fL MCH (28.0-33.3) pg MCHC (31.6-35.5) g/dL RDW (11.5-14.5) % Plt Count (140-400) K/mcL MPV (9.4-12.4) fL Immature Gran % (0-4) % Seg Neutrophils % % Lymphocytes % % Monocytes % % Eosinophils % % Basophils % % Neutrophils # (1.6-8.9) K/mcL Lymphocytes # (0.6-4.6) K/mcL Monocytes # (0.0-1.3) K/mcL Eosinophils # (0.0-0.6) K/mcL Basophils # (0.0-0.2) K/mcL Sodium (136-145) mEq/L Potassium (3.5-4.5) mEq/L Chloride (98-109) mEq/L Carbon Dioxide (19-29) mEq/L BUN (8-26) mg/dL Creatinine (0.72-1.25) mg/dL Est GFR ( Amer) (> 60) Est GFR (Non-Af Amer) (> 60) BUN/Creatinine Ratio (6-26) Glucose (70-99) mg/dL Calculated Osmolality (280-300) Calcium (8.6-10.8) mg/dL Urine Color (Yellow) Urine Clarity (Clear) Urine pH (5.0-8.0) pH Units Ur Specific [place] (1.010-1.025) Urine Protein (Neg-Trace) mg/dL Urine Glucose (UA) (Normal) mg/dL Urine Ketones (Negative) mg/dL Urine Blood (Negative) Urine Nitrite (Negative) Urine Bilirubin (Negative) Urine Urobilinogen (Normal) mg/dL Ur Leukocyte Esterase (Negative) Salicylates (15-30) mg/dL Urine Opiates Screen Negative (Yrlmdv=553) ng/mL Acetaminophen (10-30) mcg/mL Ur Barbiturates Screen Negative (Xoudqu=220) ng/mL Ur Phencyclidine Scrn Negative (Cutoff=25) ng/mL Ur Amphetamines Screen Negative (Khkhfr=3988) ng/mL U Benzodiazepines Scrn Negative (Ubcjns=198) ng/mL Urine Cocaine Screen Negative (Cutoff= 300) ng/mL U Marijuana (THC) Screen Positive H (Cutoff = 50) ng/mL Ethyl Alcohol (0-10) mg/dL - EKG Data EKG attestation: Yes I reviewed and interpreted this EKG. EKG results narrative: Rate 60 bpm. WV interval 218 ms. QTc 423 ms. Normal axis. Normal sinus rhythm. Possible first-degree AV block noted. No ST elevation or ST depression noted. EKG is similar in appearance to EKG from 09/15/2016 with the exception of normal sinus rhythm at this time. Psychiatric Medical Clearance - Medical Clearance Checklist Medical History: Suicidal ideation (Acute) Depression (Acute) Alcohol dependence (Acute) Personality disorder (Acute) Acute anxiety (Acute) Suicidal ideation (Acute) MDD (major depressive disorder), recurrent severe, without psychosis (Acute) Alcohol withdrawal (Resolved) Hyperthyroidism (Acute) HIV infection (Chronic) COPD (chronic obstructive pulmonary disease) (Chronic) Tobacco use (Chronic) Tachycardia (Acute) AIDS (acquired immune deficiency syndrome) (Acute) Malnutrition (Chronic) Low blood pressure reading (Acute) Acute exacerbation of chronic obstructive airways disease (Acute) HIV (human immunodeficiency virus infection) (Acute) Hyperthyroidism (Chronic) Pneumonia (Acute) Anxiety (Chronic) Visual floaters (Chronic) DVT prophylaxis (Acute) Acute exacerbation of chronic obstructive airways disease (Inactive) Alcohol abuse (Inactive) Bronchitis (Inactive) Bronchitis (Inactive) Lumbar radiculopathy (Inactive) Strain of lumbar region (Inactive) No Social History Section defined Current Vitals: Last Vital Signs Temp 97.4 F L 02/25/17 00:36 Pulse 68 02/25/17 00:36 Resp 16 02/25/17 00:36 BP 147/85 02/25/17 00:36 Pulse Ox 96 02/25/17 00:36 Psychiatric Lab Panel: Drug Levels and Toxicity 02/25/17 02/25/17 00:25 00:26 Urine Opiates Screen Negative Acetaminophen < 1.0 L Ur Barbiturates Screen Negative Ur Phencyclidine Scrn Negative Ur Amphetamines Screen Negative U Benzodiazepines Scrn Negative Urine Cocaine Screen Negative U Marijuana (THC) Screen Positive H Ethyl Alcohol 293 H Abnormal Labs: Abnormal lab results MCHC 35.8 g/dL (31.6-35.5) H 02/25/17 00:25 MPV 8.6 fL (9.4-12.4) L 02/25/17 00:25 BUN 7 mg/dL (8-26) L 02/25/17 00:25 Salicylates < 5.0 mg/dL (15-30) L 02/25/17 00:25 Acetaminophen < 1.0 mcg/mL (10-30) L 02/25/17 00:25 U Marijuana (THC) Screen Positive ng/mL (Cutoff = 50) H 02/25/17 00:26 Ethyl Alcohol 293 mg/dL (0-10) H 02/25/17 00:25 Statement of Medical Clearance: I have evaluated the patient, reviewed diagnostic information, and certify that the patient's medical condition is sufficiently stable that transfer to the psychiatric unit does not pose a significant risk of deterioration. Attestation Statement - Attestation Attestation: I, Gianni Richardson MD, personally evaluated this patient and discussed their management with the resident physician. I reviewed the resident's note and agree with the documented findings, medical decision making, and plan of care. 47-year-old male presents to the emergency department by EMS with a complaint of suicidal ideation. Patient states his girlfriend broke up with him and now he does not want to live anymore. He tried to jump off a bridge but could not do it so he called for help. He has been drinking alcohol. On examination patient is a well-developed well-nourished male in no acute distress. He is alert and oriented. No cyanosis or diaphoresis. Breath sounds are clear and equal bilaterally. Heart regular rate and rhythm. Abdomen soft and nontender with normal bowel sounds. Labs reviewed. Alcohol 293. A repeat alcohol level ordered for 8 AM and patient will be signed out to the oncoming dayshift team under Dr. Lakhani.
[2017-02-25 00:34] LABS: Bilirubin,Urine Negative (Negative); Blood,Urine Negative (Negative); Clarity,Urine Clear (Clear); Color,Urine Yellow (Yellow); Glucose,Urine (UA) Normal (Normal); Ketones,Urine Negative (Negative); Leukocyte Esterase,Urine Negative (Negative); Nitrite,Urine Negative (Negative); PH,Urine 6.5 pH Units (5.0-8.0); Protein,Urine Negative (Neg-Trace); Specific Gravity,Urine 1.011 (1.010-1.025); Urobilinogen,Urine Normal (Normal)
[2017-02-25 00:38] LABS: Amphetamine Screen,Urine Negative ng/mL (Cutoff=1000); Barbiturate Screen,Urine Negative ng/mL (Cutoff=200); Benzodiazepines Screen,Urine Negative ng/mL (Cutoff=200); Cannabinoid Screen,Urine Positive ng/mL (Cutoff = 50); Cocaine Screen,Urine Negative ng/mL (Cutoff= 300); Opiate Screen,Urine Negative ng/mL (Cutoff=300); Phencyclidine Screen,Urine Negative ng/mL (Cutoff=25)
[2017-02-25 00:45] LABS: BUN/Creatinine Ratio 10 (6-26); Blood Urea Nitrogen 7 mg/dL (8-26); Calcium 8.9 mg/dL (8.6-10.8); Carbon Dioxide 26 mEq/L (19-29); Chloride 104 mEq/L (98-109); Ethanol 293 mg/dL (0-10); Glucose 85 mg/dL (70-99); Osmolality,Calculated 291 (280-300); Sodium 142 mEq/L (136-145); eGFR For African Americans > 60 (> 60); eGFR For Non-African Americans > 60 (> 60)
[2017-02-25 00:46] LABS: Acetaminophen < 1.0 mcg/mL (10-30)
[2017-02-25 00:47] LABS: Potassium 4.1 mEq/L (3.5-4.5); Salicylate < 5.0 mg/dL (15-30)
--- NOTE | 2017-02-25 07:55 | Emergency Department Note ---
Disposition Clinical Impression: Suicidal ideation Alcohol dependence Qualifiers: Substance use status: uncomplicated Qualified Code(s): F10.20 - Alcohol dependence, uncomplicated Disposition: Admitted As Inpatient Condition: Undetermined Referrals: Ludin Vieyra MD [Partnered Physician] - Forms: ED Satisfaction Letter Time of Disposition: 15:53 General Adult HPI - General Chief complaint: ED Psychiatric Symptoms Stated complaint: 1A consult Time Seen by Provider: 02/24/17 23:56 Source: patient Mode of arrival: EMS Limitations: no limitations Nursing Notes Reviewed: Yes Vital Signs Reviewed: Yes - History of Present Illness Pain Scale: 10 - Related Data Home Medications Medication Instructions Recorded Confirmed Tramadol HCl [Ultram] 50 mg PO BID PRN 07/05/16 02/25/17 Dronabinol [Marinol] 2.5 mg PO TIDAC 02/25/17 02/25/17 Elviteg/Melania/Emtric/Tenofo Ala 1 tab PO DAILY 02/25/17 02/25/17 [Genvoya Tablet] Allergies Allergy/AdvReac Type Severity Reaction Status Date / Time acetaminophen [From Tylenol] AdvReac Rash Verified 09/15/16 18:00 ibuprofen AdvReac Rash Verified 09/15/16 18:00 Constitutional: Denies: fever, chills, weakness, weight change Cardiovascular: Denies: chest pain, dyspnea on exertion Respiratory: Denies: dyspnea Gastrointestinal: Denies: abdominal pain, nausea, vomiting Musculoskeletal: Denies: back pain Psychiatric: Reports: depression, suicidal thoughts. Denies: anxiety, homicidal thoughts, auditory hallucinations, visual hallucinations Past Medical History - Past Medical History Medical history: Reports: COPD, HIV/AIDS (Diagnosed in Jun 2016, untreated), thyroid disease Surgical history: Reports: non-contributory, other (Right hand and elbow surgeries) Psychiatric history: Reports: anxiety, depression, previous psychiatric hospitalization - Social History Smoking Status: Current every day smoker Smokeless Tobacco Status: No Alcohol use: Reports: occasionally Drug use: Reports: marijuana Physical Exam - General Limitations: no limitations General appearance: alert, in no apparent distress - Head Head exam: atraumatic, normocephalic, normal inspection - Eye Eye exam: Present: normal appearance, PERRL, EOMI. Absent: scleral icterus - ENT ENT exam: normal exam, normal oropharynx, mucous membranes moist - Neck Neck exam: Present: normal inspection, full ROM, trachea midline - Chest Chest inspection: Present: normal inspection, symmetric chest wall rise. Absent : tenderness - Respiratory Respiratory exam: Present: normal lung sounds bilaterally. Absent: respiratory distress - Cardiovascular Cardiovascular exam: Present: regular rate, normal rhythm, normal heart sounds - Abdominal Exam Abdominal exam: Present: soft, Non-Tender, normal bowel sounds. Absent: tenderness, distention, guarding, rebound, rigidity, organomegaly - Extremities Exam Extremities exam: Present: normal inspection, full ROM, normal capillary refill. Absent: tenderness, pedal edema - Back Exam Back exam: Present: normal inspection, full ROM. Absent: tenderness - Neurological Exam Neurological exam: Present: alert, oriented X3 - Psychiatric Psychiatric exam: Present: normal affect, homicidal ideation (Occasionally not at this time), suicidal ideation (With a plan of jumping off a bridge) - Skin Skin exam: Present: warm, dry, intact, normal color. Absent: rash, cyanosis, diaphoresis, erythema Course Course Narrative: The patient was signed out by shift leader. The plan for the patient for the day is supple Ia evaluation after his EtOH level comes back to normal. On my exam he is alert and oriented resting in bed. He states that he does have some suicidal ideation such as stepping off a bridge. He states that he was unable to do this earlier. States that he feels safe while he is in bed here in the hospital but does not feel safe to be discharged. We will repeat a EtOH level at 8:00 and contact Ia. - Reevaluation(s) Reevaluation #1: Patient reassessed. His EtOH level is down into the 20s. He is mentating appropriately. One a request that the patient be admitted to the hospitalist service for possible detox. They state that he is a heavy drinker and a separate that he may go into withdrawals. He is showed no signs of withdrawal while he has been here. We will admit to the hospitalist. - Consultations Consultation #1: I spoke with one A. They are requesting patient be admitted to the hospital for alcohol withdrawal. They state that he drinks extensively and are free that he is going to go into withdrawals. We will admit patient to the floor. Time: 15:21 Consultation #2: Dr Campbell accepeted Pt in stable condition. Time: 15:24 Vital Signs Temperature 97.4 F L 02/25/17 00:36 Pulse Rate 68 02/25/17 00:36 Respiratory Rate 16 02/25/17 00:36 Blood Pressure 147/85 02/25/17 00:36 O2 Sat by Pulse Oximetry 96 02/25/17 00:36 Temperature 97.4 F L 02/25/17 00:36 Pulse Rate 68 02/25/17 00:36 Respiratory Rate 16 02/25/17 00:36 Blood Pressure 147/85 02/25/17 00:36 O2 Sat by Pulse Oximetry 96 02/25/17 00:36 Oxygen Delivery Oxygen Delivery Room Air Medical Decision Making - Lab Data Lab results reviewed: Yes I reviewed the patient's lab results. Result diagrams: 02/25/17 00:25 02/25/17 00:25 Lab Results 02/25/17 02/25/17 02/25/17 Range/Units 00:25 00:25 00:26 WBC 5.5 (4.3-11.1) K/mcL RBC 5.07 (4.19-5.50) M/mcL Hgb 16.8 (12.9-16.9) g/dL Hct 46.9 (37.5-50.1) % MCV 92.5 (83.0-100.0) fL MCH 33.1 (28.0-33.3) pg MCHC 35.8 H (31.6-35.5) g/dL RDW 12.5 (11.5-14.5) % Plt Count 281 (140-400) K/mcL MPV 8.6 L (9.4-12.4) fL Immature Gran % 0.5 (0-4) % Seg Neutrophils % 45.2 % Lymphocytes % 42.6 % Monocytes % 8.3 % Eosinophils % 2.3 % Basophils % 1.1 % Neutrophils # 2.5 (1.6-8.9) K/mcL Lymphocytes # 2.4 (0.6-4.6) K/mcL Monocytes # 0.5 (0.0-1.3) K/mcL Eosinophils # 0.1 (0.0-0.6) K/mcL Basophils # 0.1 (0.0-0.2) K/mcL Sodium 142 (136-145) mEq/L Potassium 4.1 (3.5-4.5) mEq/L Chloride 104 (98-109) mEq/L Carbon Dioxide 26 (19-29) mEq/L BUN 7 L (8-26) mg/dL Creatinine 0.73 (0.72-1.25) mg/dL Est GFR ( Amer) > 60 (> 60) Est GFR (Non-Af Amer) > 60 (> 60) BUN/Creatinine Ratio 10 (6-26) Glucose 85 (70-99) mg/dL Calculated Osmolality 291 (280-300) Calcium 8.9 (8.6-10.8) mg/dL Urine Color Yellow (Yellow) Urine Clarity Clear (Clear) Urine pH 6.5 (5.0-8.0) pH Units Ur Specific Grant 1.011 (1.010-1.025) Urine Protein Negative (Neg-Trace) mg/dL Urine Glucose (UA) Normal (Normal) mg/dL Urine Ketones Negative (Negative) mg/dL Urine Blood Negative (Negative) Urine Nitrite Negative (Negative) Urine Bilirubin Negative (Negative) Urine Urobilinogen Normal (Normal) mg/dL Ur Leukocyte Esterase Negative (Negative) Salicylates < 5.0 L (15-30) mg/dL Urine Opiates Screen (Luaxfh=968) ng/mL Acetaminophen < 1.0 L (10-30) mcg/mL Ur Barbiturates Screen (Pzgbsq=697) ng/mL Ur Phencyclidine Scrn (Cutoff=25) ng/mL Ur Amphetamines Screen (Rxxnjt=1244) ng/mL U Benzodiazepines Scrn (Golymu=474) ng/mL Urine Cocaine Screen (Cutoff= 300) ng/mL U Marijuana (THC) Screen (Cutoff = 50) ng/mL Ethyl Alcohol 293 H (0-10) mg/dL 02/25/17 02/25/17 02/25/17 Range/Units 00:26 07:55 11:24 WBC (4.3-11.1) K/mcL RBC (4.19-5.50) M/mcL Hgb (12.9-16.9) g/dL Hct (37.5-50.1) % MCV (83.0-100.0) fL MCH (28.0-33.3) pg MCHC (31.6-35.5) g/dL RDW (11.5-14.5) % Plt Count (140-400) K/mcL MPV (9.4-12.4) fL Immature Gran % (0-4) % Seg Neutrophils % % Lymphocytes % % Monocytes % % Eosinophils % % Basophils % % Neutrophils # (1.6-8.9) K/mcL Lymphocytes # (0.6-4.6) K/mcL Monocytes # (0.0-1.3) K/mcL Eosinophils # (0.0-0.6) K/mcL Basophils # (0.0-0.2) K/mcL Sodium (136-145) mEq/L Potassium (3.5-4.5) mEq/L Chloride (98-109) mEq/L Carbon Dioxide (19-29) mEq/L BUN (8-26) mg/dL Creatinine (0.72-1.25) mg/dL Est GFR ( Amer) (> 60) Est GFR (Non-Af Amer) (> 60) BUN/Creatinine Ratio (6-26) Glucose (70-99) mg/dL Calculated Osmolality (280-300) Calcium (8.6-10.8) mg/dL Urine Color (Yellow) Urine Clarity (Clear) Urine pH (5.0-8.0) pH Units Ur Specific Grant (1.010-1.025) Urine Protein (Neg-Trace) mg/dL Urine Glucose (UA) (Normal) mg/dL Urine Ketones (Negative) mg/dL Urine Blood (Negative) Urine Nitrite (Negative) Urine Bilirubin (Negative) Urine Urobilinogen (Normal) mg/dL Ur Leukocyte Esterase (Negative) Salicylates (15-30) mg/dL Urine Opiates Screen Negative (Iiebvd=101) ng/mL Acetaminophen (10-30) mcg/mL Ur Barbiturates Screen Negative (Rwlehc=578) ng/mL Ur Phencyclidine Scrn Negative (Cutoff=25) ng/mL Ur Amphetamines Screen Negative (Rmeyhj=2735) ng/mL U Benzodiazepines Scrn Negative (Fodiel=288) ng/mL Urine Cocaine Screen Negative (Cutoff= 300) ng/mL U Marijuana (THC) Screen Positive H (Cutoff = 50) ng/mL Ethyl Alcohol 121 H 29 H (0-10) mg/dL Attestation Statement - Attestation Attestation: Patient was seen with resident physician. I reviewed the history, physical, assessment and plan, and agree with the findings. I also personally evaluated this patient and had [id number] time with this patient. 47-year-old male presents to emergency department with chief complaint of suicidal ideation. Patient was signed out by the shift leader team with a repeat alcohol pending. And 1 evaluation. Apparently patient was found bradycardia to jump off a bridge. Was brought to the emergency department for evaluation treatment on my arrival patient was alert and oriented had no complaints at this time no chest pain or shortness of breath. On exam vital signs are stable. ENT was unremarkable. Heart and lungs normal. Abdomen is soft and nontender. Extremities unremarkable. Neurologically patient was intact. ED course patient was evaluated by Ia. Disposition will be according to their wishes. They did contact us back after evaluation concerned because the patient apparently has detoxed several times with them. They wanted him admitted for observation to medicine to ensure he did not have any alcohol withdrawal and then additionally evaluated by their service. We contacted the hospitalist service to arrange for this and they agreed to accept the patient. Agree with resident physician assessment and plan.
[2017-02-25] MEDS ORDERED: 0.9 % Sodium Chloride 1,000 ML IVC ONE (08:42)
[2017-02-25] MEDS ORDERED: *HR* LORazepam 0.5 MG TABLET PO ONE (16:30)
[2017-02-25] MEDS ORDERED: *HR* LORazepam 2 MG/ML VIAL IVP PRN ×2 (19:46)
[2017-02-25] MEDS ORDERED: Naloxone 0.4 MG/ML INJ IVP PRN (20:09)
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
[2017-02-25] MEDS: traMADol 50 MG TABLET PO PRN (20:40)
[2017-02-25] MEDS: Nicotine 21 MG PATCH.TD24 TD SCH (20:40)
--- NOTE | 2017-02-25 21:09 | Electrocardiograph Report ---
[place] [place] [facility] Test Date: 2017-02-25 Pat Name: Eulalio Owen Department: 103 Room: 3B21 Gender: M Presentation Designer: WHIT BALLB: 1970 Requested By: Sandoval Olivo Order Number: [id number] Reading MD: Juliano Mata MD Measurements Intervals [place] Rate: 60 P: 75 DE: 219 QRS: -35 QRSD: 90 T: 73 QT: 421 QTc: 423 Interpretive Statements SINUS RHYTHM MARKED LEFT AXIS DEVIATION Electronically Signed On 02-25-2017 21:07:43 EDT by Juliano Mata MD
[2017-02-25] MEDS: *HR* LORazepam 2 MG/ML VIAL IVP PRN (22:28)
[2017-02-26] MEDS: *HR* LORazepam 2 MG/ML VIAL IVP PRN ×2 (02:40→11:18)
[2017-02-26] MEDS: *HR* Enoxaparin 40 MG/0.4 ML SYRINGE SQ SCH (05:15)
[2017-02-26] MEDS: TENOFOVIR ALAFENAMIDE PO SCH (08:38)
[2017-02-26] MEDS: EMTRICITABINE PO SCH (08:38)
[2017-02-26] MEDS: ELVITEGRAVIR PO SCH (08:38)
[2017-02-26] MEDS: COBICISTAT PO SCH (08:38)
[2017-02-26] MEDS: Nicotine 21 MG PATCH.TD24 TD SCH (08:39)
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
[2017-02-26] MEDS: traMADol 50 MG TABLET PO PRN ×2 (12:41→19:51)
--- NOTE | 2017-02-26 16:37 | Internal Med Progress Note ---
Date of Encounter: 02/26/17 Time of Encounter: 11:45 - Assessment and plan (1) Suicidal ideation Current Visit: Yes Status: Acute Assessment and plan: Psychiatric consult appreciated. Plan to transfer to psychiatric unit when medically stable. Start low-dose Lexapro. Continue one-on-one sitter for patient safety. Supportive care. (2) Depression Current Visit: Yes Status: Acute Assessment and plan: Plan as above. Qualifiers: Depression Type: major depressive disorder Major depression recurrence: recurrent Active/Remission status: currently active Psychotic features: without psychotic features Qualified Code(s): F33.2 - Major depressive disorder, recurrent severe without psychotic features (3) Alcohol dependence Current Visit: Yes Status: Acute Assessment and plan: Continue to monitor closely for alcohol withdrawal. Admitted with alcohol intoxication, serum alcohol level normalized now. CIWA score noted to be worsening as the day progresses. Continue when necessary IV Ativan and supportive care. IV hydration. Thiamine and folic acid supplements. Qualifiers: Substance use status: with intoxication Complication of substance-induced condition: uncomplicated Qualified Code(s): F10.220 - Alcohol dependence with intoxication, uncomplicated (4) HIV infection Current Visit: Yes Status: Chronic Assessment and plan: Continue home medication regimen. (5) COPD (chronic obstructive pulmonary disease) Current Visit: Yes Status: Chronic Assessment and plan: Not in acute exacerbation. Continue when necessary bronchodilators. Qualifiers: COPD type: chronic bronchitis Chronic bronchitis type: simple Qualified Code(s): J41.0 - Simple chronic bronchitis - Subjective Interval history: Reports feeling better, has some occasional tremors; continues to feel depressed and have suicidal thoughts. No nausea, vomiting, abdominal pain. Has 1 :1 sitter at bedside. - Constitutional Vitals: Temp Pulse Resp BP Pulse Ox 98.1 F 85 18 108/72 92 02/26/17 15:32 02/26/17 15:32 02/26/17 15:32 02/26/17 15:32 02/26/17 15:32 General appearance: Present: cachectic, A&O X 3, answers questions appropriately - Respiratory Respiratory exam: Present: CTAB. Absent: accessory muscle use, rales, rhonchi, wheezes - Cardiovascular Cardiovascular exam: Present: RRR, +S1, +S2. Absent: diastolic murmur, gallop, rubs, systolic murmur - GI/Abdominal GI/Abdominal exam: Present: normal bowel sounds, soft, no peritoneal signs. Absent: distended, tenderness - Extremities Exam Extremities exam: Present: full ROM, warm, radial pulses palpable and symmetrical. Absent: calf tenderness, cyanotic, pedal edema Internal Medicine: Result - Labs CBC & Chem 7: 02/25/17 00:25 02/25/17 00:25 Consult Discharge Plan - Plan Additional Instructions: Inpatient psychiatric stabilization for severe depression and suicidal plan Referrals: NONE,PCP [Primary Care Provider] -
[2017-02-26] MEDS ORDERED: Thiamine (B-1) 100 MG, Folic Acid 1 MG, MVI, adult with vitamin K 10 ML in 0.9 % Sodi... IVPB SCH (18:00)
[2017-02-27] MEDS: *HR* Enoxaparin 40 MG/0.4 ML SYRINGE SQ SCH (06:43)
[2017-02-27 07:01] LABS: Alanine Aminotransferase 15 Units/L (0-55); Albumin 3.3 g/dL (3.5-5.0); Alkaline Phosphatase 75 Units/L (38-126); Aspartate Amino Transferase 26 Units/L (5-34); BUN/Creatinine Ratio 14 (6-26); Blood Urea Nitrogen 10 mg/dL (8-26); Calcium 9.1 mg/dL (8.6-10.8); Carbon Dioxide 27 mEq/L (19-29); Chloride 105 mEq/L (98-109); Globulin 3.4 g/dL (2.4-3.5); Glucose 95 mg/dL (70-99); Magnesium 1.8 mg/dL (1.6-2.6); Osmolality,Calculated 285 (280-300); Potassium 4.2 mEq/L (3.5-4.5); Sodium 138 mEq/L (136-145); Total Protein 6.7 g/dL (6.0-8.3); eGFR For African Americans > 60 (> 60); eGFR For Non-African Americans > 60 (> 60)
[2017-02-27] MEDS: ELVITEGRAVIR PO SCH (08:49)
[2017-02-27] MEDS: COBICISTAT PO SCH (08:49)
[2017-02-27] MEDS: EMTRICITABINE PO SCH (08:49)
[2017-02-27] MEDS: TENOFOVIR ALAFENAMIDE PO SCH (08:49)
[2017-02-27] MEDS: Nicotine 21 MG PATCH.TD24 TD SCH (09:05)
[2017-02-27 11:34] VITALS: BP 104/62
--- NOTE | 2017-02-27 15:19 | Discharge Summary ---
Date of Encounter: 02/27/17 Time of Encounter: 12:00 - Discharge Diagnosis (1) Suicidal ideation Priority: Primary Status: Acute (2) Depression Priority: Primary Status: Acute Qualifiers: Depression Type: major depressive disorder Major depression recurrence: recurrent Active/Remission status: currently active Major depression episode severity: severe Psychotic features: without psychotic features Qualified Code(s): F33.2 - Major depressive disorder, recurrent severe without psychotic features (3) Alcohol dependence Priority: Primary Status: Chronic Qualifiers: Substance use status: with intoxication Complication of substance-induced condition: uncomplicated Qualified Code(s): F10.220 - Alcohol dependence with intoxication, uncomplicated (4) HIV infection Priority: Secondary Status: Chronic (5) COPD (chronic obstructive pulmonary disease) Priority: Secondary Status: Chronic Qualifiers: COPD type: chronic bronchitis Chronic bronchitis type: simple Qualified Code(s): J41.0 - Simple chronic bronchitis - Discharge Medications Home Medications: Tramadol HCl [Ultram] 50 mg PO BID PRN 07/05/16 [History] Dronabinol [Marinol] 2.5 mg PO TIDAC 02/25/17 [History] Elviteg/Melania/Emtric/Tenofo Ala [Genvoya Tablet] 1 tab PO DAILY 02/25/17 [History ] Chlordiazepoxide [Librium] 25 mg PO BID capsule 02/27/17 [Rx] Enoxaparin [Lovenox] 40 mg SQ 0600 syringe 02/27/17 [Rx] Nicotine Patch [Nicoderm] 21 mg TD DAILY patch.td24 02/27/17 [Rx] Allergies/Adverse Reactions: 3 Allergy/AdvReac Type Severity Reaction Status Date / Time acetaminophen [From Tylenol] AdvReac Rash Verified 09/15/16 18:00 ibuprofen AdvReac Rash Verified 09/15/16 18:00 Date of admission: 02/25/17 20:09 Primary care physician: PCP NONE Consults: 02/26/17 12:38 Consult to Psychiatry [CONS] Routine Consulting Provider: Psychiatry Vaishnavi Reason for Consult: Patient SI Call Completed: Yes Discharging clinician: Nyla Benoit Anticipated date of discharge: 02/27/17 - Patient Status Disposition: Transfer Psychiatric Hosp Condition: Good Functional capacity at discharge: independent ambulation Overall status at discharge: patient is progressing back to baseline - Discharge Instructions Follow Up With: NONE,PCP [Primary Care Provider] - Additional Instructions: Inpatient psychiatric stabilization for severe depression and suicidal plan - Diet and Activity Activity: resume usual activities as tolerated Diet: advance to your usual diet Hospital course: Mr. Owen is a 47 year old male with history of alcohol abuse, depression was admitted with suicidal ideation and attempt by jumping off a bridge, after his girlfriend broke up with him. Patient was also noted to be intoxicated with alcohol at the time of admission. He was monitored for alcohol withdrawal and started on CIWA protocol along with IV hydration, Librium, thiamine and folic acid supplements, supportive care with PPI and when necessary antiemetics. He had no signs or symptoms of severe withdrawal except very mild anxiety, he remained hemodynamically stable. He continued to be depressed and to have feelings of suicidal ideation. He has been on continuous one-on-one watch while in the hospital. He was evaluated by psychiatry and is currently medically stable for transfer to inpatient psychiatric for further management of his major depressive disorder. - Time Spent with Patient Total time spent providing and/or coordinating discharge services: Greater than 30 minutes (40 min) - Constitutional Vitals: Temp Pulse Resp BP Pulse Ox 97.7 F 78 14 104/62 95 02/27/17 11:34 02/27/17 11:34 02/27/17 11:34 02/27/17 11:34 02/27/17 11:34 General appearance: Present: cachectic, A&O X 3, answers questions appropriately - Respiratory Respiratory exam: Present: CTAB. Absent: accessory muscle use, rales, rhonchi, wheezes - Cardiovascular Cardiovascular exam: Present: RRR, +S1, +S2. Absent: diastolic murmur, gallop, rubs, systolic murmur
[2017-02-27] MEDS ORDERED: FLUARIX QUAD 2017-18 36MOS UP/PF 0.5 ML SYRINGE IM ONE (15:21)
== END 2017-02-27 17:18 | DRG 751 ==
LOC: EMEROO 23:52 → 3BNU 23:52 → SUATTDRO 02-25 16:26 → 3BNU 02-25 17:00 → SUATTDRO 02-25 20:09
PROVIDERS: ADMIT Internal Medicine; ATTEND Internal Medicine

== ENCOUNTER 2017-02-27 17:33 | Inpatient (IN) ==
[2017-02-27] MEDS ORDERED: Acetaminophen 325 MG TABLET PO PRN (17:46)
[2017-02-27] MEDS ORDERED: *HR* LORazepam 2 MG/ML VIAL IM PRN (17:46)
[2017-02-27] MEDS ORDERED: *HR* LORazepam 1 MG TABLET PO PRN (17:46)
[2017-02-27] MEDS ORDERED: MOM Conc 10 ML UD.LIQ PO PRN (17:46)
[2017-02-27] MEDS ORDERED: Haloperidol Lactate 5 MG/ML VIAL IM PRN (17:46)
[2017-02-27] MEDS ORDERED: Mag Hydrox/Al Hydrox/Simeth 30 ML UDC PO PRN (17:46)
[2017-02-27] MEDS ORDERED: traMADol 50 MG TABLET PO PRN (20:07)
[2017-02-27] MEDS: traZODone 50 MG TABLET PO PRN (21:10)
[2017-02-28] MEDS: Nicotine 21 MG PATCH.TD24 TD SCH (09:24)
[2017-02-28] MEDS: hydrOXYzine pamoate 25 MG CAPSULE PO PRN ×2 (09:24→20:14)
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
[2017-02-28] MEDS: traZODone 50 MG TABLET PO PRN (20:14)
[2017-03-01] MEDS: Nicotine 21 MG PATCH.TD24 TD SCH (09:52)
--- NOTE | 2017-03-01 10:08 | Psychiatry Progress Note ---
Date of Encounter: 03/01/17 Time of Encounter: 09:50 Subjective Interval history: Patient seen today , case d/w staff and treatment team , patient is not sleeping well , anxious , having cravings. As per him my thoughts have been scrambled and i am very anxious , i toss and turn and thought i was drinking , having cravings. he is suicidal and same plan , i had seen few things and voices are not there today. patient is showing slow improvement. medication doses increased , will add gabapentin for his anxiety , substance use . denies side effects Review of Systems Psychiatric: Reports: depression, anxiety, suicidal ideation, change in appetite , auditory hallucinations, visual hallucinations, anhedonia, difficulty concentrating, hopelessness, mood swings Objective: Exam Patient orientation: Yes Person, Yes Time, Yes Place Level of alertness: Alert Patient appearance: Unkempt Behavior: cooperative, anxious Psychomotor activity: Normal Eye contact: Maintains Eye Contact Mood description: Depressed, Anxious Affect description: congruent with mood Speech pattern: Excessive Speech volume: Normal Thought process: Racing Thought content: Yes Suicidal ideation, Yes Paranoid delusion Perceptual disturbances: Yes Visual hallucinations Judgment: Limited Insight: Minimal Results - Vital Signs Vital Signs: Temp Pulse Resp BP 98.4 F 79 18 100/69 02/28/17 19:59 02/28/17 19:59 02/28/17 19:59 02/28/17 19:59 Assessment and Plan (1) Bipolar 1 disorder Current visit: Yes Status: Acute Risks, benefits, side effects, alternatives discussed w/pt: Yes Patient agreeable to treatment: Yes (2) Suicidal ideation Current visit: No Status: Acute Risks, benefits, side effects, alternatives discussed w/pt: Yes Patient agreeable to treatment: Yes (3) Alcohol dependence Current visit: No Status: Chronic Risks, benefits, side effects, alternatives discussed w/pt: Yes Patient agreeable to treatment: Yes Qualifiers: Substance use status: with intoxication Complication of substance-induced condition: uncomplicated Qualified Code(s): F10.220 - Alcohol dependence with intoxication, uncomplicated (4) Personality disorder Current visit: No Status: Chronic Risks, benefits, side effects, alternatives discussed w/pt: Yes Patient agreeable to treatment: Yes (5) Acute anxiety Current visit: No Status: Acute Risks, benefits, side effects, alternatives discussed w/pt: Yes Patient agreeable to treatment: Yes (6) Hyperthyroidism Current visit: No Status: Acute (7) HIV infection Current visit: No Status: Chronic (8) COPD (chronic obstructive pulmonary disease) Current visit: No Status: Chronic Qualifiers: COPD type: chronic bronchitis Chronic bronchitis type: simple Qualified Code(s): J41.0 - Simple chronic bronchitis Consult Discharge Plan - Plan Referrals: [facility] [Outside] - 03/07/17 1:00 pm (The above appointment is with Martha Otero for mental health and substance abuse counseling services. You will also see Kiki Cortes for outpatient psychiatric assessment and medication management services on 03/26/2017 at 3:00pm. These are the first available appointments. You may contact the clinic regularly to check for cancellations that would allow you to be seen sooner.)
[2017-03-01] MEDS: hydrOXYzine pamoate 25 MG CAPSULE PO PRN (11:45)
[2017-03-01] MEDS: Gabapentin 100 MG CAPSULE PO SCH ×2 (15:33→21:37)
[2017-03-01] MEDS: traZODone 50 MG TABLET PO PRN (21:37)
[2017-03-02] MEDS: Nicotine 21 MG PATCH.TD24 TD SCH (08:22)
[2017-03-02] MEDS: Gabapentin 100 MG CAPSULE PO SCH ×3 (08:23→20:46)
--- NOTE | 2017-03-02 09:24 | Psychiatry Progress Note ---
Date of Encounter: 03/02/17 Time of Encounter: 09:00 Subjective Interval history: Patient seen today case d/w treatment team , doing little better. Asper him , slept 3 hours after long tie and its getting better, remains depress and suicidal , states thoughts are coming but no plan , my mind is slowing down. has been eating well and has started coming to groups . denies side effects Review of Systems Psychiatric: Reports: depression, anxiety, suicidal ideation, change in appetite , auditory hallucinations, visual hallucinations, anhedonia, difficulty concentrating, hopelessness, mood swings Objective: Exam Patient orientation: Yes Person, Yes Time, Yes Place Level of alertness: Alert Patient appearance: Appropriate Behavior: calm, cooperative Psychomotor activity: Slowed Eye contact: Minimal Contact Mood description: Depressed, Anxious Affect description: congruent with mood, dysphoric Speech pattern: Slowed Speech volume: Normal Thought process: Intact Thought content: Yes Suicidal ideation, Yes Preoccupation, Yes Paranoid delusion Judgment: Limited Insight: Partial Results - Vital Signs Vital Signs: Temp Pulse Resp BP 97.3 F L 84 16 96/57 03/02/17 09:00 03/02/17 09:00 03/02/17 09:00 03/02/17 09:00 Assessment and Plan (1) Bipolar 1 disorder Current visit: Yes Status: Acute Risks, benefits, side effects, alternatives discussed w/pt: Yes Patient agreeable to treatment: Yes (2) Suicidal ideation Current visit: No Status: Acute Risks, benefits, side effects, alternatives discussed w/pt: Yes Patient agreeable to treatment: Yes (3) Alcohol dependence Current visit: No Status: Chronic Risks, benefits, side effects, alternatives discussed w/pt: Yes Patient agreeable to treatment: Yes Qualifiers: Substance use status: with intoxication Complication of substance-induced condition: uncomplicated Qualified Code(s): F10.220 - Alcohol dependence with intoxication, uncomplicated (4) Personality disorder Current visit: No Status: Chronic Risks, benefits, side effects, alternatives discussed w/pt: Yes Patient agreeable to treatment: Yes (5) Acute anxiety Current visit: No Status: Acute Risks, benefits, side effects, alternatives discussed w/pt: Yes Patient agreeable to treatment: Yes (6) Hyperthyroidism Current visit: No Status: Acute (7) HIV infection Current visit: No Status: Chronic (8) COPD (chronic obstructive pulmonary disease) Current visit: No Status: Chronic Qualifiers: COPD type: chronic bronchitis Chronic bronchitis type: simple Qualified Code(s): J41.0 - Simple chronic bronchitis Consult Discharge Plan - Plan Referrals: [facility] [Outside] - 03/07/17 1:00 pm (The above appointment is with Martha Otero for mental health and substance abuse counseling services. You will also see Kiki Cortes for outpatient psychiatric assessment and medication management services on 03/26/2017 at 3:00pm. These are the first available appointments. You may contact the clinic regularly to check for cancellations that would allow you to be seen sooner.)
[2017-03-02] MEDS: hydrOXYzine pamoate 25 MG CAPSULE PO PRN (14:25)
[2017-03-02] MEDS: traZODone 50 MG TABLET PO PRN (22:20)
[2017-03-03] MEDS: Nicotine 21 MG PATCH.TD24 TD SCH (08:49)
[2017-03-03] MEDS: Gabapentin 100 MG CAPSULE PO SCH ×3 (08:50→20:16)
--- NOTE | 2017-03-03 11:42 | Psychiatry Progress Note ---
Date of Encounter: 03/03/17 Time of Encounter: 11:05 Subjective Interval history: Patient seen today , case d/w treatment team and staff , he is c/o paranoia today and states has been pacing as feeling paranoid. sleep is 4 hrs / night, appetite is improving. depressed, anxious, paranoid , no aud. alcaraz, no visual hallucinations, suicidal thoughts are fleeting c/o blurry vision in beginning but now it went away as per him. continue close monitoring and increase seroquel to 300 mg hs. Review of Systems Psychiatric: Reports: depression, anxiety, suicidal ideation, change in appetite , auditory hallucinations, visual hallucinations, anhedonia, difficulty concentrating, hopelessness, mood swings Objective: Exam Patient orientation: Yes Person, Yes Time, Yes Place Level of alertness: Alert Patient appearance: Appropriate Behavior: anxious Psychomotor activity: Normal Eye contact: Maintains Eye Contact Mood description: Depressed, Anxious Affect description: congruent with mood Speech pattern: Coherent Speech volume: Normal Thought process: Intact Thought content: Yes Suicidal ideation, Yes Paranoid delusion, Yes Guilt Judgment: Limited Insight: Partial Results - Vital Signs Vital Signs: Temp Pulse Resp BP 97.8 F 87 16 114/90 03/03/17 09:00 03/03/17 09:00 03/03/17 09:00 03/03/17 09:00 Assessment and Plan (1) Bipolar 1 disorder Current visit: Yes Status: Acute Risks, benefits, side effects, alternatives discussed w/pt: Yes Patient agreeable to treatment: Yes (2) Suicidal ideation Current visit: No Status: Acute Risks, benefits, side effects, alternatives discussed w/pt: Yes Patient agreeable to treatment: Yes (3) Alcohol dependence Current visit: No Status: Chronic Risks, benefits, side effects, alternatives discussed w/pt: Yes Patient agreeable to treatment: Yes Qualifiers: Substance use status: with intoxication Complication of substance-induced condition: uncomplicated Qualified Code(s): F10.220 - Alcohol dependence with intoxication, uncomplicated (4) Personality disorder Current visit: No Status: Chronic Risks, benefits, side effects, alternatives discussed w/pt: Yes Patient agreeable to treatment: Yes (5) Acute anxiety Current visit: No Status: Acute Risks, benefits, side effects, alternatives discussed w/pt: Yes Patient agreeable to treatment: Yes (6) Hyperthyroidism Current visit: No Status: Acute (7) HIV infection Current visit: No Status: Chronic (8) COPD (chronic obstructive pulmonary disease) Current visit: No Status: Chronic Qualifiers: COPD type: chronic bronchitis Chronic bronchitis type: simple Qualified Code(s): J41.0 - Simple chronic bronchitis Consult Discharge Plan - Plan Referrals: [facility] [Outside] - 03/07/17 1:00 pm (The above appointment is with Martha Otero for mental health and substance abuse counseling services. You will also see Kiki Cortes for outpatient psychiatric assessment and medication management services on 03/26/2017 at 3:00pm. These are the first available appointments. You may contact the clinic regularly to check for cancellations that would allow you to be seen sooner.)
[2017-03-03] MEDS: hydrOXYzine pamoate 25 MG CAPSULE PO PRN (20:16)
[2017-03-04] MEDS: Gabapentin 100 MG CAPSULE PO SCH ×3 (08:32→21:25)
[2017-03-04] MEDS: Nicotine 21 MG PATCH.TD24 TD SCH (08:32)
--- NOTE | 2017-03-04 11:16 | Psychiatry Progress Note ---
Date of Encounter: 03/04/17 Time of Encounter: 11:11 Subjective Interval history: Client reports he is still struggling with insomnia, depressed mood and SI. Discussed how sleep and mood will likely continue to be issues for a while due to the recent heavy drinking. Wants to go to [facility] for rehab. Has not been evaluated by them yet. Takes Marinol due to HIV so may not qualify for a bed with them. Has his own apt. Willing to return there once SI improves provided he will get a rehab bed somewhere soon. Started on Lexapo but reports it is just making him hyper. Previously took Remeron with more success. Remeron will help with appetite, sleep, and mood so may be a better choice given his health issues. Review of Systems Constitutional: Denies: fever, chills, weakness, weight change Eyes: Denies: eye pain, vision change Ears, Nose, Throat: Denies: ear pain, throat pain, dental pain, hearing loss, congestion Cardiovascular: Denies: chest pain, palpitations, dyspnea on exertion Respiratory: Denies: cough, dyspnea, wheezes Gastrointestinal: Denies: abdominal pain, nausea, vomiting, diarrhea, constipation Musculoskeletal: Denies: joint swelling, joint pain Neurological: Denies: headache, weakness, numbness, memory loss Psychiatric: Reports: depression, anxiety, suicidal ideation, change in appetite , auditory hallucinations, visual hallucinations, anhedonia, difficulty concentrating, hopelessness, mood swings Objective: Exam Patient orientation: Yes Person, Yes Time, Yes Place Level of alertness: Alert Patient appearance: Mal-nourished Behavior: calm, cooperative Psychomotor activity: Normal Eye contact: Maintains Eye Contact Mood description: Depressed Affect description: congruent with mood Speech pattern: Normal rate, Normal rhythm, Normal tone Speech volume: Soft/Quiet Thought process: Linear Thought content: Yes Suicidal ideation, No Homicidal ideation, No Overt delusions Perceptual disturbances: No Auditory hallucinations, No Visual hallucinations Judgment: Limited Insight: Partial Results - Vital Signs Vital Signs: Temp Pulse Resp BP 97.7 F 94 16 91/64 03/04/17 09:00 03/04/17 09:00 03/04/17 09:00 03/04/17 09:00 Assessment and Plan (1) Depression Current visit: No Status: Acute Plan: Continue hospitalization, Close observation, Suicide Precautions per unit protocol, Encourage participation in unit milieu, Group Therapy, Monitor sleep, Monitor appetite Risks, benefits, side effects, alternatives discussed w/pt: Yes Patient agreeable to treatment: Yes Qualifiers: Depression Type: major depressive disorder Major depression recurrence: recurrent Active/Remission status: currently active Major depression episode severity: severe Psychotic features: without psychotic features Qualified Code(s): F33.2 - Major depressive disorder, recurrent severe without psychotic features Consult Discharge Plan - Plan Referrals: [facility] [Outside] - 03/07/17 1:00 pm (The above appointment is with Martha Otero for mental health and substance abuse counseling services. You will also see Kiki Cortes for outpatient psychiatric assessment and medication management services on 03/26/2017 at 3:00pm. These are the first available appointments. You may contact the clinic regularly to check for cancellations that would allow you to be seen sooner.)
[2017-03-04] MEDS: hydrOXYzine pamoate 25 MG CAPSULE PO PRN (13:21)
[2017-03-04] MEDS ORDERED: Mirtazapine 15 MG TABLET PO SCH (21:00)
[2017-03-05] MEDS: Gabapentin 100 MG CAPSULE PO SCH ×2 (08:02→15:19)
[2017-03-05] MEDS: Nicotine 21 MG PATCH.TD24 TD SCH (08:02)
[2017-03-05 09:16] VITALS: BP 107/68
[2017-03-05] MEDS: hydrOXYzine pamoate 25 MG CAPSULE PO PRN (11:30)
--- NOTE | 2017-03-05 15:13 | Discharge Summary ---
Date of Encounter: 03/05/17 Time of Encounter: 15:08 Diagnosis - Discharge Diagnosis (1) Depression Status: Acute Qualifiers: Depression Type: major depressive disorder Major depression recurrence: recurrent Active/Remission status: currently active Major depression episode severity: severe Psychotic features: without psychotic features Qualified Code(s): F33.2 - Major depressive disorder, recurrent severe without psychotic features Medications - Discharge Medications Prescriptions: Gabapentin [Neurontin] 200 mg PO TID #126 capsule Mirtazapine [Remeron] 15 mg PO HS #21 tablet Quetiapine Fumarate [Seroquel] 200 mg PO HS #42 tablet Elviteg/Melania/Emtric/Tenofo Ala [Genvoya Tablet] 1 tab PO DAILY 02/25/17 [History ] Dronabinol [Marinol] 2.5 mg PO TID capsule 03/05/17 [Rx] Gabapentin [Neurontin] 200 mg PO TID #126 capsule 03/05/17 [Rx] Mirtazapine [Remeron] 15 mg PO HS #21 tablet 03/05/17 [Rx] Quetiapine Fumarate [Seroquel] 200 mg PO HS #42 tablet 03/05/17 [Rx] traZODone [TraZODone] 50 mg PO HS PRN tablet 03/05/17 [Rx] 3 Allergy/AdvReac Type Severity Reaction Status Date / Time acetaminophen [From Tylenol] AdvReac Rash Verified 09/15/16 18:00 ibuprofen AdvReac Rash Verified 09/15/16 18:00 Provider Date of admission: 02/27/17 17:33 Primary care physician: PCP NONE Consults: 02/28/17 06:42 Consult to Hospitalist [CONS] Routine Consulting Provider: Hospitalist Suni Reason for Consult: Medical follow up for discharge from medical floor. Call Completed: No Discharging clinician: Neema Lux Assessment and Plan - Patient/Caregiver Discharge Instructions Activity: resume usual activities as tolerated Diet: regular diet - Follow up Plan Follow up with: [facility] [Outside] - 03/07/17 1:00 pm (The above appointment is with Martha Otero for mental health and substance abuse counseling services. You will also see Kiki Cortes for outpatient psychiatric assessment and medication management services on 03/26/2017 at 3:00pm. You will see Dr. Blake for Vivitrol assessment and treatment planning on 04/05/2017 at 9:00am. These are the first available appointments. You may contact the clinic regularly to check for cancellations that would allow you to be seen sooner. Additionally, you have been referred to the clinic's residential AOD program. There are no beds open at this time, and your referral is being reviewed to determine if you could be accepted once a bed opens up. You may stay in touch with Kiah Thomas or Angie at the clinic regarding this.) Functional capacity at discharge: independent ambulation Overall status at discharge: Stable Disposition: Home, Self-Care Hospital Course Hospital course: Mr. Owen is a 47 year old male who was admitted secondary to SI and alcohol abuse. Home meds were started and titrated for clinical effect. Remeron was also added. Client took this medication in the past with positive results as well. Client endorsed vague SI throughout his inpatient stay but denied intent or plan. 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 Laughing, joking and socializing with peers. 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 Today he told this feature writer he was up throwing up all night. Did not report this to staff. Staff did not witness any illness. Appeared to be looking for ways to stay in the hospital but agreed that he had places he could go. Has his own apartment. Also reported he has a friend he can stay with if he decides he does not want to be home alone. Has an appointment with an AOD counselor in two days. Will be able to find out then if he qualifies for residential treatment at [facility]. Discussed how it might benefit him to have a transitional period at home before meeting with his counselor so a relapse prevention plan can be discussed more thoroughly. - Time Spent with Patient Total time spent providing and/or coordinating discharge services: Quality - Multiple Antipsychotics Patient discharged on 2 or more antipsychotic medications: No Procedures - Procedures Procedures: Medication Management, Crisis Stabilization, Supportive Therapy, Group Therapy Mental Status Exam - Mental Status Exam Patient orientation: Yes Person, Yes Time, Yes Place Level of alertness: Alert Patient appearance: Appropriate Behavior: calm Psychomotor activity: Normal Eye contact: Maintains Eye Contact Mood description: Anxious Affect description: congruent with mood Speech pattern: Normal rate, Normal rhythm, Normal tone Speech Volume: Normal Thought process: Linear, Goal Oriented Thought Content: No Suicidal ideation, No Homicidal ideation, No Overt delusions Perceptual Disturbances: No Auditory hallucinations, No Visual hallucinations Judgment: Limited Insight: Partial
== END 2017-03-05 17:00 | disposition home or self-care (01) | DRG 751 ==
LOC: 1ANU 17:33
PROVIDERS: ADMIT Psychiatry & Neurology Psychiatry; ATTEND Psychiatry & Neurology Psychiatry

== ENCOUNTER 2017-05-29 22:11 | Inpatient (IN) ==
[2017-05-29 23:24] LABS: Basophils # 0.1 K/mcL (0.0-0.2); Basophils % 1.1 %; Eosinophils # 0.1 K/mcL (0.0-0.6); Hematocrit 44.8 % (37.5-50.1); Hemoglobin 15.4 g/dL (12.9-16.9); Immature Granulocytes % 0.4 % (0-4); Lymphocytes # 1.4 K/mcL (0.6-4.6); Lymphocytes % 24.9 %; Mean Corpuscular HGB Conc 34.4 g/dL (31.6-35.5); Mean Corpuscular Hemoglobin 33.3 pg (28.0-33.3); Mean Corpuscular Volume 96.8 fL (83.0-100.0); Mean Platelet Volume 9.1 fL (9.4-12.4); Monocytes # 0.5 K/mcL (0.0-1.3); Monocytes % 9.8 %; Neutrophils # 3.4 K/mcL (1.6-8.9); Platelet Count 217 K/mcL (140-400); Red Blood Count 4.63 M/mcL (4.19-5.50); Segmented Neutrophils % 61.8 %
[2017-05-29 23:31] LABS: Bilirubin,Urine Negative (Negative); Blood,Urine Negative (Negative); Clarity,Urine Clear (Clear); Color,Urine Yellow (Yellow); Glucose,Urine (UA) Normal (Normal); Ketones,Urine Negative (Negative); Leukocyte Esterase,Urine Negative (Negative); Nitrite,Urine Negative (Negative); PH,Urine 6.5 pH Units (5.0-8.0); Protein,Urine Negative (Neg-Trace); Specific Gravity,Urine 1.009 (1.010-1.025); Urobilinogen,Urine Normal (Normal)
[2017-05-29 23:43] LABS: BUN/Creatinine Ratio 13 (6-26); Blood Urea Nitrogen 8 mg/dL (6-20); Calcium 8.9 mg/dL (8.6-10.3); Carbon Dioxide 22 mEq/L (23-29); Chloride 109 mEq/L (98-107); Glucose 84 mg/dL (70-105); Osmolality,Calculated 284 (280-300); Potassium 3.7 mEq/L (3.5-5.1); Sodium 138 mEq/L (136-145); eGFR For African Americans > 60 (> 60); eGFR For Non-African Americans > 60 (> 60)
[2017-05-30 00:14] LABS: Amphetamine Screen,Urine Negative ng/mL (Cutoff=1000); Barbiturate Screen,Urine Negative ng/mL (Cutoff=200); Benzodiazepines Screen,Urine Negative ng/mL (Cutoff=200); Cannabinoid Screen,Urine Negative ng/mL (Cutoff = 50); Cocaine Screen,Urine Negative ng/mL (Cutoff= 300); Opiate Screen,Urine Negative ng/mL (Cutoff=300); Phencyclidine Screen,Urine Negative ng/mL (Cutoff=25)
[2017-05-30 00:18] LABS: Acetaminophen < 1.0 mcg/mL (10-30); Ethanol 92 mg/dL (0-10); Salicylate < 5.0 mg/dL (15.0-30.0)
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
[2017-05-30] MEDS ORDERED: Haloperidol Lactate 5 MG/ML VIAL IM PRN (05:19)
[2017-05-30] MEDS ORDERED: MOM Conc 10 ML UD.LIQ PO PRN (05:19)
[2017-05-30] MEDS ORDERED: *HR* LORazepam 2 MG/ML VIAL IM PRN (05:19)
[2017-05-30] MEDS ORDERED: *HR* LORazepam 1 MG TABLET PO PRN (05:19)
[2017-05-30] MEDS: Nicotine 21 MG PATCH.TD24 TD SCH (08:24)
[2017-05-30] MEDS: Gabapentin 100 MG CAPSULE PO SCH ×3 (08:24→20:48)
[2017-05-30] MEDS: GENVOYA PO SCH (08:30)
[2017-05-30] MEDS: hydrOXYzine pamoate 25 MG CAPSULE PO PRN ×2 (11:07→20:49)
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
[2017-05-30] MEDS: Mirtazapine 15 MG TABLET PO SCH (20:47)
[2017-05-30] MEDS: traZODone 50 MG TABLET PO PRN (20:49)
[2017-05-31] MEDS: Gabapentin 100 MG CAPSULE PO SCH ×3 (08:22→21:07)
[2017-05-31] MEDS: GENVOYA PO SCH (08:22)
[2017-05-31] MEDS: Nicotine 21 MG PATCH.TD24 TD SCH (08:22)
[2017-05-31] MEDS: hydrOXYzine pamoate 25 MG CAPSULE PO PRN ×3 (11:27→21:07)
--- NOTE | 2017-05-31 15:05 | Psychiatry Progress Note ---
Date of Encounter: 05/31/17 Time of Encounter: 14:20 Subjective Interval history: When I met with the patient today he told me "I am really bad with racing thoughts right now". When I asked him what that meant, he states that he is thinking about his son and the guilt and shame that is feeling over having no money to help pay for the . He eels like that he was a burden on the son because of the way he lives his life. When I asked him how he was a burden , borrowing money or asking him for things? He denies doing any of that. When I asked why he would think he was a burden, he has no answer. He states he still having thoughts of hurting himself because he feels it is his fault hhis son committed suicide but has no active plan to hurt himself. He denies any homicidal ideations. He states that he slept very little last night. He has been talking to the staff as a coping skill. It helps. He is not been interacting much on the unit with therapy. He is currently having some shakes and finds himself sweating. I asked him further about drug use and how consistently he was using alcohol, possibly going through withdrawal, he reiterates that he has been clean and sober and had 2 beers the night he was admitted after his son killed himself. He denies any auditory or visual hallucinations. He is taking PRN's for his anxiety. He tells me that the Vistaril does not help, that he needs benzodiazepines. I told him I could double the dose of Vistaril to try that, he declined. Objective: Exam Patient orientation: Yes Person, Yes Time, Yes Place Level of alertness: Follows commands Patient appearance: Unkempt, Disheveled Behavior: anxious, other (not open and spontaneous) Psychomotor activity: Slowed Eye contact: Minimal Contact Mood description: Other (tired) Patient description of mood: Patients subjective does not match his objective findings. Affect description: incongruent with mood Speech pattern: Normal rate, Normal rhythm Speech volume: Soft/Quiet Thought process: Intact Thought content: Yes Intact Judgment: Limited Insight: Minimal Results - Vital Signs Vital Signs: Temp Pulse Resp BP Pulse Ox 98.0 F 85 18 104/70 96 05/31/17 09:00 05/31/17 09:00 05/31/17 09:00 05/31/17 09:00 05/29/17 22:15 Assessment and Plan (1) Acute anxiety Current visit: No Status: Acute Plan: Continue hospitalization, Close observation, Suicide Precautions per unit protocol, Encourage participation in unit milieu, Group Therapy, Monitor sleep, Monitor appetite Risks, benefits, side effects, alternatives discussed w/pt: Yes (Continue to montior for reported anxiety. No benzos at this time. ) Patient agreeable to treatment: Yes Consult Discharge Plan - Plan Referrals: [facility] [Outside] - 06/06/17 3:00 pm (The above appointment is with Martha Otero for outpatient mental health and substance abuse counseling services. You will also see Dr. Blake for outpatient psychiatric assessment and medication management services on 06/24/2017 at 6:00 PM. The above scheduled services reflect first availability. You may contact the office regularly to check for cancellations that may allow you to be seen sooner.) Ludin Vieyra MD [Partnered Physician] - 06/10/17 1:20 pm (The above appointment is with Dr. Vieyra for primary health care and medication management services. The above appointment reflects first availability. You may contact the office regularly to check for cancellations that may allow you to be seen sooner.)
[2017-05-31] MEDS: Mag Hydrox/Al Hydrox/Simeth 30 ML UDC PO PRN (15:26)
[2017-05-31] MEDS: Mirtazapine 15 MG TABLET PO SCH (21:58)
[2017-05-31] MEDS: traZODone 50 MG TABLET PO PRN (21:58)
[2017-06-01] MEDS: Nicotine 21 MG PATCH.TD24 TD SCH (09:35)
[2017-06-01] MEDS: Gabapentin 100 MG CAPSULE PO SCH ×3 (09:35→21:56)
[2017-06-01] MEDS: GENVOYA PO SCH (09:37)
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
[2017-06-01] MEDS: hydrOXYzine pamoate 25 MG CAPSULE PO PRN ×2 (14:13→21:57)
[2017-06-01] MEDS ORDERED: traMADol 50 MG TABLET PO STA (15:50)
[2017-06-01] MEDS: traZODone 50 MG TABLET PO PRN (21:57)
[2017-06-01] MEDS: Mirtazapine 15 MG TABLET PO SCH (21:57)
[2017-06-02] MEDS: Gabapentin 100 MG CAPSULE PO SCH ×3 (10:09→20:25)
[2017-06-02] MEDS: Nicotine 21 MG PATCH.TD24 TD SCH (10:09)
[2017-06-02] MEDS: GENVOYA PO SCH (10:11)
--- NOTE | 2017-06-02 13:50 | Psychiatry Progress Note ---
Date of Encounter: 06/02/17 Time of Encounter: 13:25 Subjective Interval history: PATIENT TELLS ME TODAY, " I'M ACHING ALL OVER. I THINK I'M GETTING SICK." HE WAS GIVEN ULTRAM LAST EVENING FOR COMPLAINTS OF MUSCLE ACHES AND PAINS HE IS REPORTEDLY ALLERGIC TO ACETAMINOPHEN IBUPROFEN. HE HAD THE ULTRAM PRESCRIPTION AN OUTPATIENT. HE TELLS ME QUOTE I JUST FEEL LIKE SHED TODAY. BUT I AM NOT THINKING ON IT AND DRAWING ON IT MUCH I WAS". (WHEN HE TALKS ABOUT 'IT', HE IS REFERRING TO HIS SON'S .) HE DENIES ANY HOMICIDAL IDEATION. HE STATES HE HAS PASSIVE THOUGHTS OF HURTING HIMSELF, BUT NOT DYING. HE DENIES ANY AUDITORY OR VISUAL HALLUCINATIONS. HE IS ADVISED TO CONTINUE TO CHECK IN WITH NURSING FOR PRN'S FOR HIS MEDICAL ILLNESS AND ADVISED TO REST AND GET PLENTY OF FLUIDS. Objective: Exam Patient orientation: Yes Person, Yes Place Level of alertness: Other (tired and physically ill.) Patient appearance: Unkempt Behavior: calm Psychomotor activity: Slowed Eye contact: Minimal Contact Mood description: Depressed, Other (tired) Affect description: flat Speech pattern: Normal rate, Normal rhythm, Normal tone Speech volume: Normal Thought process: Intact Thought content: Yes Suicidal ideation (passive thoughts) Judgment: Limited Insight: Partial Results - Vital Signs Vital Signs: Temp Pulse Resp BP Pulse Ox 98.8 F 94 18 97/69 96 06/02/17 09:00 06/02/17 09:00 06/02/17 09:00 06/02/17 09:00 05/29/17 22:15 Assessment and Plan (1) Acute anxiety Current visit: No Status: Acute Plan: Continue hospitalization, Close observation, Suicide Precautions per unit protocol, Encourage participation in unit milieu, Group Therapy, Monitor sleep Risks, benefits, side effects, alternatives discussed w/pt: Yes Patient agreeable to treatment: Yes Consult Discharge Plan - Plan Referrals: [facility] [Outside] - 06/06/17 3:00 pm (The above appointment is with Martha Otero for outpatient mental health and substance abuse counseling services. You will also see Dr. Blake for outpatient psychiatric assessment and medication management services on 06/24/2017 at 6:00 PM. The above scheduled services reflect first availability. You may contact the office regularly to check for cancellations that may allow you to be seen sooner.) Ludin Vieyra MD [Partnered Physician] - 06/10/17 1:20 pm (The above appointment is with Dr. Vieyra for primary health care and medication management services. The above appointment reflects first availability. You may contact the office regularly to check for cancellations that may allow you to be seen sooner.)
[2017-06-02] MEDS: hydrOXYzine pamoate 25 MG CAPSULE PO PRN ×2 (16:38→20:25)
[2017-06-02] MEDS: Mag Hydrox/Al Hydrox/Simeth 30 ML UDC PO PRN (18:08)
[2017-06-02] MEDS: Mirtazapine 15 MG TABLET PO SCH (21:57)
[2017-06-02] MEDS: traZODone 50 MG TABLET PO PRN (21:58)
[2017-06-03] MEDS: Nicotine 21 MG PATCH.TD24 TD SCH (09:33)
[2017-06-03] MEDS: Gabapentin 100 MG CAPSULE PO SCH ×3 (09:33→21:41)
[2017-06-03] MEDS: GENVOYA PO SCH (09:34)
[2017-06-03] MEDS: hydrOXYzine pamoate 25 MG CAPSULE PO PRN (14:20)
[2017-06-03] MEDS: Mag Hydrox/Al Hydrox/Simeth 30 ML UDC PO PRN (14:20)
--- NOTE | 2017-06-03 19:19 | Psychiatry Progress Note ---
Date of Encounter: 06/03/17 Time of Encounter: 18:45 Subjective Interval history: "I feel like shit." He states he has body aches and pains, as well as nasal drainage. He has sporadic thoughts of SI but no plan. He still has thoughts of his son dying, but it is getting less pervasive. No auditory/visual hallucinations. No nightmares last night. slept fine. sporadically attending groups. Eating fine. Objective: Exam Patient orientation: Yes Person, Yes Place, Yes Circumstance Level of alertness: Alert Patient appearance: Unkempt Behavior: other (physically looks sick, miserable. Sniffing nose. ) Psychomotor activity: Slowed Eye contact: Fleeting Contact Mood description: Depressed Affect description: congruent with mood Speech pattern: Normal rate, Normal rhythm, Normal tone Speech volume: Soft/Quiet Thought process: Linear Thought content: Yes Suicidal ideation (passive) Judgment: Fair Insight: Partial Results - Vital Signs Vital Signs: Temp Pulse Resp BP Pulse Ox 100.6 F H 107 20 102/71 96 06/03/17 08:52 06/03/17 08:52 06/03/17 08:52 06/03/17 08:52 05/29/17 22:15 Assessment and Plan (1) Acute anxiety Status: Acute Plan: Continue hospitalization, Close observation, Group Therapy, Monitor sleep Risks, benefits, side effects, alternatives discussed w/pt: Yes (continue curent therapy) Patient agreeable to treatment: Yes Consult Discharge Plan - Plan Instructions: Depression (DC) Referrals: [facility] [Outside] - 06/06/17 3:00 pm (The above appointment is with Martha Otero for outpatient mental health and substance abuse counseling services. You will also see Dr. Blake for outpatient psychiatric assessment and medication management services on 06/24/2017 at 6:00 PM. The above scheduled services reflect first availability. You may contact the office regularly to check for cancellations that may allow you to be seen sooner.) Ludin Vieyra MD [Partnered Physician] - 06/10/17 1:20 pm (The above appointment is with Dr. Vieyra for primary health care and medication management services. The above appointment reflects first availability. You may contact the office regularly to check for cancellations that may allow you to be seen sooner.) Prescriptions: hydrOXYzine pamoate [HydrOXYzine Pamoate] 25 mg PO TID PRN 30 Days #60 capsule PRN Reason: Anxiety Nicotine Patch [Nicoderm] 21 mg TD DAILY 30 Days #30 patch.[id number]
[2017-06-03] MEDS ORDERED: traMADol 50 MG TABLET PO ONE (21:00)
[2017-06-03] MEDS: Mirtazapine 15 MG TABLET PO SCH (21:42)
[2017-06-04] MEDS: Gabapentin 100 MG CAPSULE PO SCH ×3 (08:51→21:13)
[2017-06-04] MEDS: GENVOYA PO SCH (08:52)
[2017-06-04] MEDS: Nicotine 21 MG PATCH.TD24 TD SCH (08:52)
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
[2017-06-04] MEDS: hydrOXYzine pamoate 25 MG CAPSULE PO PRN (18:00)
[2017-06-04] MEDS ORDERED: Saline Nasal Spray 44 ML BOTTLE NS PRN (20:26)
[2017-06-04] MEDS: Mirtazapine 15 MG TABLET PO SCH (21:13)
[2017-06-05] MEDS: Nicotine 21 MG PATCH.TD24 TD SCH (09:54)
[2017-06-05] MEDS: Gabapentin 100 MG CAPSULE PO SCH ×2 (09:54→14:49)
[2017-06-05] MEDS: GENVOYA PO SCH (09:55)
[2017-06-05] MEDS: hydrOXYzine pamoate 25 MG CAPSULE PO PRN (13:43)
[2017-06-05 14:27] VITALS: BP 108/68
--- NOTE | 2017-06-05 15:08 | Discharge Summary ---
Date of Encounter: 06/05/17 Time of Encounter: 15:00 Diagnosis - Discharge Diagnosis (1) Acute anxiety Status: Acute Medications - Discharge Medications Prescriptions: hydrOXYzine pamoate [HydrOXYzine Pamoate] 25 mg PO TID PRN 30 Days #60 capsule PRN Reason: Anxiety Nicotine Patch [Nicoderm] 21 mg TD DAILY 30 Days #30 patch.[email or web address] Elviteg/Cob/Emtri/Tenof Alafen [Genvoya Tablet] 1 tab PO DAILY 02/25/17 [History ] Tramadol HCl [Ultram] 50 mg PO BID PRN 05/30/17 [History] Nicotine Patch [Nicoderm] 21 mg TD DAILY 30 Days #30 patch.[email or web address] 06/05/17 [Rx] hydrOXYzine pamoate [HydrOXYzine Pamoate] 25 mg PO TID PRN 30 Days #60 capsule 06/05/17 [Rx] traZODone [TraZODone] 50 mg PO HS PRN tablet 06/05/17 [Rx] Famotidine [Pepcid] 20 mg PO BID tablet 06/16/17 [Rx] Folic Acid 1 mg PO DAILY tablet 06/16/17 [Rx] Sulfamethoxazole/Trimeth DS [Bactrim Ds] 1 each PO BID #18 tablet 06/16/17 [Rx] Thiamine (B-1) [Vitamin B-1] 100 mg PO DAILY tablet 06/16/17 [Rx] 3 Allergy/AdvReac Type Severity Reaction Status Date / Time acetaminophen [From Tylenol] AdvReac Rash Verified 06/13/17 08:00 ibuprofen AdvReac Rash Verified 06/13/17 08:00 Provider Date of admission: 05/30/17 04:59 Primary care physician: PCP NONE Consults: 05/30/17 05:44 Consult to Pastoral Services [CONS] Routine Comment: Assessment and Plan - Patient/Caregiver Discharge Instructions Activity: resume usual activities as tolerated Diet: regular diet - Follow up Plan Follow up with: [facility] [Outside] - 06/06/17 3:00 pm (The above appointment is with Martha Otero for outpatient mental health and substance abuse counseling services. You will also see Dr. Blake for outpatient psychiatric assessment and medication management services on 06/24/2017 at 6:00 PM. The above scheduled services reflect first availability. You may contact the office regularly to check for cancellations that may allow you to be seen sooner.) Ludin Vieyra MD [Partnered Physician] - 06/10/17 1:20 pm (The above appointment is with Dr. Vieyra for primary health care and medication management services. The above appointment reflects first availability. You may contact the office regularly to check for cancellations that may allow you to be seen sooner.) Overall status at discharge: Stable Disposition: Home, Self-Care Hospital Course Hospital course: Mr. Owen is a 47 year old male who was admitted after coming to the ED reporting that he was suicidal. He reported that his son killed himself on the phone earlier that evening while they were talking. He was having thoughts of killing himself and needed to be someplace safe. The patient was known to the unit from previous admissions. He was + for alcohol on his UDS at admission. He has a history of substance abuse and denied relapse, but stated he had two beers after his son committed suicide. He denied needing any withdrawal protocols for seizure. He was withdrawn on the unit and did not participate in therapy. He was requesting Benzodiazepines, but was given Vistaril for his anxiety. This appeared to control his anxiety fine. He never presented as anxious. He was presenting as depressed. He was disheveled with his hair hanging down in his face throughout the majority of his stay. He developed an URI while on the unit, which did not help his reported mental health issues. His sleep improved while on the unit and his medical issues resolved. He had an abrasion on his forehead that he would never explain how it happened. It healed. On the day of his discharge, he told me "I'm alright. All those thoughts (of self harm) are gone" He stated the of his son was no longer bothering him as it had been. He denied any depressive symptoms or anxiety. He slept 10 hours the night prior to discharge. He talked about wanting to quit smoking and requested being discharged with nicotine patches. He denied SI/SIB/HI. No psychosis. He verbalized understanding his follow up for therapy with a mental health agency. Note: The report of his son's could never be verified after many attempts by the director of social work. He would not share any phone numbers for verification of the information. Time spent discussing smoking cessation with patient: 3 to 10 minutes Does patient wish to continue nicotine replacement upon disc: Yes - Time Spent with Patient Total time spent providing and/or coordinating discharge services:20 min Less than 30 minutes Quality - Multiple Antipsychotics Patient discharged on 2 or more antipsychotic medications: No Procedures - Procedures Procedures: Medication Management, Crisis Stabilization, Supportive Therapy, Group Therapy, Psychoeducational Therapy Mental Status Exam - Mental Status Exam Patient orientation: Yes Person, Yes Time, Yes Place, Yes Circumstance Level of alertness: Alert Patient appearance: Appropriate, Well Groomed Behavior: calm Psychomotor activity: Normal Eye contact: Maintains Eye Contact Mood description: Euthymic/stable Patient description of mood: "Alright" Affect description: congruent with mood Speech pattern: Normal rate, Normal rhythm, Normal tone, Appropriate Speech Volume: Normal Thought process: Intact, Linear, Goal Oriented Thought Content: Yes Intact Judgment: Fair Insight: Partial
== END 2017-06-05 17:30 | disposition home or self-care (01) | DRG 756 ==
LOC: EMEROO 22:11 → 1ANU 05-30 04:59
PROVIDERS: ADMIT Psychiatry & Neurology Psychiatry; ATTEND Psychiatry & Neurology Psychiatry

== ENCOUNTER 2017-06-12 23:18 | Observation (INO) ==
[2017-06-12 23:48] LABS: Basophils % 0.6 %; Eosinophils % 0.6 %; Hematocrit 47.7 % (37.5-50.1); Hemoglobin 17.1 g/dL (12.9-16.9); Immature Granulocytes % 0.8 % (0-4); Lymphocytes # 2.4 K/mcL (0.6-4.6); Lymphocytes % 36.8 %; Mean Corpuscular HGB Conc 35.8 g/dL (31.6-35.5); Mean Corpuscular Hemoglobin 32.8 pg (28.0-33.3); Mean Corpuscular Volume 91.4 fL (83.0-100.0); Mean Platelet Volume 8.4 fL (9.4-12.4); Monocytes # 0.3 K/mcL (0.0-1.3); Monocytes % 5.2 %; Neutrophils # 3.7 K/mcL (1.6-8.9); Platelet Count 308 K/mcL (140-400); Red Blood Count 5.22 M/mcL (4.19-5.50); Red Cell Distribution Width 12.6 % (11.5-14.5)
[2017-06-13 00:07] LABS: Alanine Aminotransferase 13 Units/L (7-52); Albumin 4.7 g/dL (3.5-5.7); Albumin/Globulin Ratio 1.3 (1.1-2.2); Alkaline Phosphatase 77 Units/L (34-104); Aspartate Amino Transferase 28 Units/L (13-39); BUN/Creatinine Ratio 12 (6-26); Bilirubin,Direct 0.1 mg/dL (0.0-0.2); Bilirubin,Indirect 0.4 mg/dL (0.0-1.2); Bilirubin,Total 0.5 mg/dL (0.3-1.0); Blood Urea Nitrogen 8 mg/dL (6-20); Calcium 9.2 mg/dL (8.6-10.3); Carbon Dioxide 27 mEq/L (23-29); Chloride 108 mEq/L (98-107); Globulin 3.5 g/dL (2.4-3.5); Glucose 86 mg/dL (70-105); Osmolality,Calculated 290 (280-300); Potassium 4.4 mEq/L (3.5-5.1); Sodium 141 mEq/L (136-145); Total Protein 8.2 g/dL (6.4-8.9); eGFR For African Americans > 60 (> 60); eGFR For Non-African Americans > 60 (> 60)
[2017-06-13] MEDS ORDERED: Lidocaine -MPF 2% 5 ML VIAL INFILT ONE (00:12)
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
[2017-06-13 01:31] LABS: Bilirubin,Urine Negative (Negative); Blood,Urine Negative (Negative); Clarity,Urine Clear (Clear); Color,Urine Yellow (Yellow); Glucose,Urine (UA) Normal (Normal); Ketones,Urine Negative (Negative); Leukocyte Esterase,Urine Negative (Negative); Nitrite,Urine Negative (Negative); Protein,Urine Negative (Neg-Trace); Specific Gravity,Urine 1.013 (1.010-1.025); Urobilinogen,Urine Normal (Normal)
[2017-06-13 01:35] LABS: Ethanol 219 mg/dL (0-10)
[2017-06-13 01:38] LABS: Acetaminophen < 1.0 mcg/mL (10-30); Salicylate < 5.0 mg/dL (15.0-30.0)
[2017-06-13 01:59] LABS: Amphetamine Screen,Urine Negative ng/mL (Cutoff=1000); Barbiturate Screen,Urine Negative ng/mL (Cutoff=200); Benzodiazepines Screen,Urine Negative ng/mL (Cutoff=200); Cannabinoid Screen,Urine Negative ng/mL (Cutoff = 50); Cocaine Screen,Urine Negative ng/mL (Cutoff= 300); Opiate Screen,Urine Negative ng/mL (Cutoff=300); Phencyclidine Screen,Urine Negative ng/mL (Cutoff=25)
--- NOTE | 2017-06-13 02:10 | Emergency Department Note ---
Disposition Clinical Impression: Suicidal ideation, Suicidal behavior with attempted self-injury, Hx of human immunodeficiency virus infection Alcohol withdrawal Qualifiers: Qualified Code(s): F10.239 - Disposition: Admitted As Inpatient Condition: Fair Time of Disposition: 02:17 Psych HPI - General Chief Complaint: ED Psychiatric Symptoms Stated Complaint: "SI/etoh/cut wrist" Source: EMS Nursing Notes Reviewed: Yes Vital Signs Reviewed: Yes - History of Present Illness HPI Narrative: 47-year-old male presented to the ED by EMS secondary to suicide ideation and suicide attempt by cutting his wrists with a razor blade. Patient states that he lost his son to suicide times one month ago. He states that his family has been blaming him for suicide. Patient states he cannot take it any longer and relapse on alcohol (prior hx of alcohol abuse) and decided to take his life. EMS states that the wounds are bilateral but superficial and hemostasis was controlled. Patient is currently intoxicated Patient has a history of HIV and is being treated with anti-retroviral therapy by Dr. Vieyra his PCP. - Related Data Home Medications Medication Instructions Recorded Confirmed Elviteg/Cob/Emtri/Tenof Alafen 1 tab PO DAILY 02/25/17 06/13/17 [Genvoya Tablet] Tramadol HCl [Ultram] 50 mg PO BID PRN 05/30/17 06/13/17 Previous Rx's Medication Instructions Recorded Nicotine Patch [Nicoderm] 21 mg TD DAILY 30 Days #30 06/05/17 patch.td24 hydrOXYzine pamoate [HydrOXYzine 25 mg PO TID PRN 30 Days #60 06/05/17 Pamoate] capsule traZODone [TraZODone] 50 mg PO HS PRN tablet 06/05/17 Allergies Allergy/AdvReac Type Severity Reaction Status Date / Time acetaminophen [From Tylenol] AdvReac Rash Verified 06/13/17 08:00 ibuprofen AdvReac Rash Verified 06/13/17 08:00 All systems ED: reviewed and negative except as stated. Review of Systems: As Per HPI Constitutional: Denies: fever, chills, weakness Eyes: Denies: vision change ENT ED: Denies: congestion Cardiovascular: Denies: chest pain Respiratory: Denies: cough, dyspnea Gastrointestinal: Denies: abdominal pain, nausea, vomiting, diarrhea Past Medical History - Past Medical History Attestation: Yes The following information was validated with the patient. Source: patient, nursing notes reviewed Medical history: Reports: COPD, HIV/AIDS, thyroid disease Surgical history: Reports: non-contributory, other Psychiatric history: Reports: anxiety, depression, prior suicide attempt, previous psychiatric hospitalization - Social History Smoking Status: Current every day smoker Smokeless Tobacco Status: No Alcohol use: Reports: recent Drug use: Reports: none, cocaine, opiates, IV Drug Use Physical Exam Vital Signs Temperature 96.8 F L 06/12/17 23:24 Pulse Rate 87 06/12/17 23:24 Respiratory Rate 16 06/12/17 23:24 Blood Pressure 112/78 06/12/17 23:24 O2 Sat by Pulse Oximetry 96 06/12/17 23:24 Temperature 96.8 F L 06/12/17 23:24 Pulse Rate 87 06/12/17 23:24 Respiratory Rate 16 06/12/17 23:24 Blood Pressure 112/78 06/12/17 23:24 O2 Sat by Pulse Oximetry 96 06/12/17 23:24 Oxygen Delivery Oxygen Delivery Room Air 47-year-old male who is alert and oriented 3 and in no acute distress. Patient appears disheveled. Patient has multiple slice wounds to bilateral wrists anteriorly. Wounds on left wrist measuring just over 5 cm but very superficial does not appear to require suturing but the rooms on the right wrist are superficial but slightly deeper than the left wrist and gaping. - General Limitations: altered mental status General appearance: alert - Head Head exam: atraumatic, normocephalic, normal inspection - Eye Eye exam: Present: normal appearance, PERRL, EOMI - ENT ENT exam: normal exam, normal oropharynx, mucous membranes moist - Neck Neck exam: Present: normal inspection, full ROM, trachea midline - Chest Chest inspection: Present: normal inspection, symmetric chest wall rise - Respiratory Respiratory exam: Present: normal lung sounds bilaterally - Cardiovascular Cardiovascular exam: Present: regular rate, normal rhythm, normal heart sounds - Abdominal Exam Abdominal exam: Present: soft, Non-Tender. Absent: tenderness, distention, guarding, rebound, rigidity Course Vital Signs Temperature 96.8 F L 06/12/17 23:24 Pulse Rate 87 06/12/17 23:24 Respiratory Rate 16 06/12/17 23:24 Blood Pressure 112/78 06/12/17 23:24 O2 Sat by Pulse Oximetry 96 06/12/17 23:24 Temperature 96.8 F L 06/12/17 23:24 Pulse Rate 88 06/13/17 08:56 Respiratory Rate 18 06/13/17 09:47 Blood Pressure 108/68 06/13/17 09:47 O2 Sat by Pulse Oximetry 98 06/13/17 08:56 Oxygen Delivery Oxygen Delivery Room Air Procedures - Laceration Laceration 1 Site: upper extremity Side (If applicable): right Description: linear, clean Depth: simple, single layer Local Anesthetic: lidocaine 2% Amount of Anesthesia Used (mL): 3 Pre-repair: wound explored, irrigated extensively Skin layer closed with: vicryl Size: 3-0 Number of sutures/maria alejandra: 7 Technique: simple, interrupted Psych - MDM Narrative Medical decision making narrative: Suicidal ideation and suicide attempt by cutting wrists. Patient has a long- time history of cutting in the past. Patient states that he still wants to kill himself. Med clearance labs ordered for psych evaluation. Patient's lacerations on the right wrist have been closed with 7 simple interrupted sutures Bacitracin has been applied to the wound and bandaged with nonstick dressing. Pt has been placed on bactrim and keflex, tetanus booster 2/2 HIV. Pt has a CD4 count of 14 which is extremely low. Patient's alcohol levels currently 219 and will stay in the ED for observation until his alcohol level is below 80 which will then make him medically cleared for evaluation. At that time patient will be evaluated by 1A. patient is currently being very cooperative - Lab Data Lab results reviewed: Yes I reviewed the patient's lab results. Lab results narrative: Short CBC 06/12/17 Range/Units 23:42 WBC 6.5 (4.3-11.1) K/mcL Hgb 17.1 H (12.9-16.9) g/dL Hct 47.7 (37.5-50.1) % Plt Count 308 (140-400) K/mcL Neutrophils # 3.7 (1.6-8.9) K/mcL BMP 06/12/17 Range/Units 23:42 Sodium 141 (136-145) mEq/L Potassium 4.4 (3.5-5.1) mEq/L Chloride 108 H (98-107) mEq/L Carbon Dioxide 27 (23-29) mEq/L BUN 8 (6-20) mg/dL Creatinine 0.65 L (0.70-1.30) mg/dL Glucose 86 (70-105) mg/dL Calcium 9.2 (8.6-10.3) mg/dL Liver Function 06/12/17 Range/Units 23:42 Total Bilirubin 0.5 (0.3-1.0) mg/dL Direct Bilirubin 0.1 (0.0-0.2) mg/dL AST 28 (13-39) Units/L ALT 13 (7-52) Units/L Alkaline Phosphatase 77 (34-104) Units/L Albumin 4.7 (3.5-5.7) g/dL Urine 06/12/17 Range/Units 23:25 Urine Color Yellow (Yellow) Urine Clarity Clear (Clear) Urine pH 6.0 (5.0-8.0) pH Units Ur Specific [place] 1.013 (1.010-1.025) Urine Protein Negative (Neg-Trace) mg/dL Urine Glucose (UA) Normal (Normal) mg/dL Result diagrams: 06/12/17 23:42 06/12/17 23:42 Lab Results 06/12/17 06/12/17 06/12/17 Range/Units 23:25 23:25 23:42 WBC 6.5 (4.3-11.1) K/mcL RBC 5.22 (4.19-5.50) M/mcL Hgb 17.1 H (12.9-16.9) g/dL Hct 47.7 (37.5-50.1) % MCV 91.4 (83.0-100.0) fL MCH 32.8 (28.0-33.3) pg MCHC 35.8 H (31.6-35.5) g/dL RDW 12.6 (11.5-14.5) % Plt Count 308 (140-400) K/mcL MPV 8.4 L (9.4-12.4) fL Immature Gran % 0.8 (0-4) % Seg Neutrophils % 56.0 % Lymphocytes % 36.8 % Monocytes % 5.2 % Eosinophils % 0.6 % Basophils % 0.6 % Neutrophils # 3.7 (1.6-8.9) K/mcL Lymphocytes # 2.4 (0.6-4.6) K/mcL Monocytes # 0.3 (0.0-1.3) K/mcL Eosinophils # 0.0 (0.0-0.6) K/mcL Basophils # 0.0 (0.0-0.2) K/mcL Sodium (136-145) mEq/L Potassium (3.5-5.1) mEq/L Chloride (98-107) mEq/L Carbon Dioxide (23-29) mEq/L BUN (6-20) mg/dL Creatinine (0.70-1.30) mg/dL Est GFR ( Amer) (> 60) Est GFR (Non-Af Amer) (> 60) BUN/Creatinine Ratio (6-26) Glucose (70-105) mg/dL Calculated Osmolality (280-300) Calcium (8.6-10.3) mg/dL Phosphorus (2.7-4.5) mg/dL Magnesium (1.6-2.6) mg/dL Total Bilirubin (0.3-1.0) mg/dL Direct Bilirubin (0.0-0.2) mg/dL Indirect Bilirubin (0.0-1.2) mg/dL AST (13-39) Units/L ALT (7-52) Units/L Alkaline Phosphatase (34-104) Units/L Serum Total Protein (6.4-8.9) g/dL Albumin (3.5-5.7) g/dL Globulin (2.4-3.5) g/dL Albumin/Globulin Ratio (1.1-2.2) Urine Color Yellow (Yellow) Urine Clarity Clear (Clear) Urine pH 6.0 (5.0-8.0) pH Units Ur Specific [place] 1.013 (1.010-1.025) Urine Protein Negative (Neg-Trace) mg/dL Urine Glucose (UA) Normal (Normal) mg/dL Urine Ketones Negative (Negative) mg/dL Urine Blood Negative (Negative) Urine Nitrite Negative (Negative) Urine Bilirubin Negative (Negative) Urine Urobilinogen Normal (Normal) mg/dL Ur Leukocyte Esterase Negative (Negative) Salicylates (15.0-30.0) mg/dL Urine Opiates Screen Negative (Poiogc=247) ng/mL Acetaminophen (10-30) mcg/mL Ur Barbiturates Screen Negative (Priprv=292) ng/mL Ur Phencyclidine Scrn Negative (Cutoff=25) ng/mL Ur Amphetamines Screen Negative (Dyfmlf=8918) ng/mL U Benzodiazepines Scrn Negative (Rzxboi=481) ng/mL Urine Cocaine Screen Negative (Cutoff= 300) ng/mL U Marijuana (THC) Screen Negative (Cutoff = 50) ng/mL Ethyl Alcohol (0-10) mg/dL 06/12/17 06/13/17 Range/Units 23:42 06:58 WBC (4.3-11.1) K/mcL RBC (4.19-5.50) M/mcL Hgb (12.9-16.9) g/dL Hct (37.5-50.1) % MCV (83.0-100.0) fL MCH (28.0-33.3) pg MCHC (31.6-35.5) g/dL RDW (11.5-14.5) % Plt Count (140-400) K/mcL MPV (9.4-12.4) fL Immature Gran % (0-4) % Seg Neutrophils % % Lymphocytes % % Monocytes % % Eosinophils % % Basophils % % Neutrophils # (1.6-8.9) K/mcL Lymphocytes # (0.6-4.6) K/mcL Monocytes # (0.0-1.3) K/mcL Eosinophils # (0.0-0.6) K/mcL Basophils # (0.0-0.2) K/mcL Sodium 141 (136-145) mEq/L Potassium 4.4 (3.5-5.1) mEq/L Chloride 108 H (98-107) mEq/L Carbon Dioxide 27 (23-29) mEq/L BUN 8 (6-20) mg/dL Creatinine 0.65 L (0.70-1.30) mg/dL Est GFR ( Amer) > 60 (> 60) Est GFR (Non-Af Amer) > 60 (> 60) BUN/Creatinine Ratio 12 (6-26) Glucose 86 (70-105) mg/dL Calculated Osmolality 290 (280-300) Calcium 9.2 (8.6-10.3) mg/dL Phosphorus 3.5 (2.7-4.5) mg/dL Magnesium 2.1 (1.6-2.6) mg/dL Total Bilirubin 0.5 (0.3-1.0) mg/dL Direct Bilirubin 0.1 (0.0-0.2) mg/dL Indirect Bilirubin 0.4 (0.0-1.2) mg/dL AST 28 (13-39) Units/L ALT 13 (7-52) Units/L Alkaline Phosphatase 77 (34-104) Units/L Serum Total Protein 8.2 (6.4-8.9) g/dL Albumin 4.7 (3.5-5.7) g/dL Globulin 3.5 (2.4-3.5) g/dL Albumin/Globulin Ratio 1.3 (1.1-2.2) Urine Color (Yellow) Urine Clarity (Clear) Urine pH (5.0-8.0) pH Units Ur Specific [place] (1.010-1.025) Urine Protein (Neg-Trace) mg/dL Urine Glucose (UA) (Normal) mg/dL Urine Ketones (Negative) mg/dL Urine Blood (Negative) Urine Nitrite (Negative) Urine Bilirubin (Negative) Urine Urobilinogen (Normal) mg/dL Ur Leukocyte Esterase (Negative) Salicylates < 5.0 L (15.0-30.0) mg/dL Urine Opiates Screen (Bvsbrr=072) ng/mL Acetaminophen < 1.0 L (10-30) mcg/mL Ur Barbiturates Screen (Dslgxj=192) ng/mL Ur Phencyclidine Scrn (Cutoff=25) ng/mL Ur Amphetamines Screen (Jtgptb=3812) ng/mL U Benzodiazepines Scrn (Tlefyv=923) ng/mL Urine Cocaine Screen (Cutoff= 300) ng/mL U Marijuana (THC) Screen (Cutoff = 50) ng/mL Ethyl Alcohol 219 H 61 H (0-10) mg/dL Psychiatric Medical Clearance - Medical Clearance Checklist Does the patient have a NEW psychiatric condition?: No Any abnormalities indicating possible medical illness?: No Any history of medical issues?: No Medical History: Suicidal ideation (Acute) Depression (Acute) Alcohol dependence (Chronic) Personality disorder (Chronic) Acute anxiety (Acute) Suicidal ideation (Acute) Alcohol withdrawal (Acute) Hyperthyroidism (Acute) HIV infection (Chronic) COPD (chronic obstructive pulmonary disease) (Chronic) Tobacco use (Chronic) Tachycardia (Acute) AIDS (acquired immune deficiency syndrome) (Acute) Malnutrition (Chronic) Low blood pressure reading (Acute) Acute exacerbation of chronic obstructive airways disease (Acute) HIV (human immunodeficiency virus infection) (Acute) Hyperthyroidism (Chronic) Pneumonia (Acute) Anxiety (Chronic) Visual floaters (Chronic) DVT prophylaxis (Acute) Major depress dis, severe (Acute) Bipolar 1 disorder (Acute) Suicidal behavior with attempted self-injury (Acute) Suicide attempt (Acute) Wrist contusion (Acute) HIV (human immunodeficiency virus infection) (Acute) Alcohol withdrawal (Acute) Acute exacerbation of chronic obstructive airways disease (Inactive) Alcohol abuse (Inactive) Bronchitis (Inactive) Bronchitis (Inactive) Lumbar radiculopathy (Inactive) Strain of lumbar region (Inactive) No Social History Section defined Any abnormal vital signs prior to transfer?: No Current Vitals: Last Vital Signs Temp 96.8 F L 06/12/17 23:24 Pulse 88 06/13/17 08:56 Resp 18 06/13/17 09:47 BP 108/68 06/13/17 09:47 Pulse Ox 98 06/13/17 08:56 Is the patient intoxicated or cognitively impaired?: No Psychiatric Lab Panel: Drug Levels and Toxicity 06/12/17 06/12/17 06/13/17 23:25 23:42 06:58 Urine Opiates Screen Negative Acetaminophen < 1.0 L Ur Barbiturates Screen Negative Ur Phencyclidine Scrn Negative Ur Amphetamines Screen Negative U Benzodiazepines Scrn Negative Urine Cocaine Screen Negative U Marijuana (THC) Screen Negative Ethyl Alcohol 219 H 61 H Any abnormalities on the physical exam?: No Any abnormal labs?: No Abnormal Labs: Abnormal lab results Hgb 17.1 g/dL (12.9-16.9) H 06/12/17 23:42 MCHC 35.8 g/dL (31.6-35.5) H 06/12/17 23:42 MPV 8.4 fL (9.4-12.4) L 06/12/17 23:42 Chloride 108 mEq/L (98-107) H 06/12/17 23:42 Creatinine 0.65 mg/dL (0.70-1.30) L 06/12/17 23:42 Salicylates < 5.0 mg/dL (15.0-30.0) L 06/12/17 23:42 Acetaminophen < 1.0 mcg/mL (10-30) L 06/12/17 23:42 Ethyl Alcohol 61 mg/dL (0-10) H 06/13/17 06:58 Does the patient require durable medical equiptment?: No Is the patient ambulatory?: No Is the patient a fall risk?: No Has the patient been medically cleared?: No (Alcohol level 219) Any acute medical condition require Tx prior to transfer?: No Statement of Medical Clearance: I have evaluated the patient, reviewed diagnostic information, and certify that the patient's medical condition is sufficiently stable that transfer to the psychiatric unit does not pose a significant risk of deterioration.
[2017-06-13] MEDS ORDERED: Tdap (Boostrix) Vaccine 0.5 ML SYRINGE IM ONE (02:31)
[2017-06-13] MEDS ORDERED: Sulfamethoxazole/Trimeth DS 1 EACH TABLET PO ONE (02:32)
[2017-06-13] MEDS ORDERED: cephALEXin 250 MG CAPSULE PO ONE (02:33)
--- NOTE | 2017-06-13 09:13 | Emergency Department Note ---
Disposition Clinical Impression: Suicidal ideation, Suicidal behavior with attempted self-injury Alcohol withdrawal Qualifiers: Complication of substance-induced condition: with unspecified complication Qualified Code(s): F10.239 - Alcohol dependence with withdrawal, unspecified Disposition: Admitted As Inpatient Condition: Fair Referrals: Ludin Vieyra MD [Primary Care Provider] - Forms: ED Satisfaction Letter Time of Disposition: 09:36 Psych HPI - General Chief Complaint: ED Psychiatric Symptoms Stated Complaint: "SI/etoh/cut wrist" Time Seen by Provider: 06/13/17 06:20 Source: EMS - Related Data Home Medications Medication Instructions Recorded Confirmed Elviteg/Cob/Emtri/Tenof Alafen 1 tab PO DAILY 02/25/17 05/30/17 [Genvoya Tablet] Tramadol HCl [Ultram] 50 mg PO BID PRN 05/30/17 05/30/17 Previous Rx's Medication Instructions Recorded Gabapentin [Neurontin] 200 mg PO TID capsule 06/05/17 Nicotine Patch [Nicoderm] 21 mg TD DAILY 30 Days #30 06/05/17 patch.td24 hydrOXYzine pamoate [HydrOXYzine 25 mg PO TID PRN 30 Days #60 06/05/17 Pamoate] capsule traZODone [TraZODone] 50 mg PO HS PRN tablet 06/05/17 Allergies Allergy/AdvReac Type Severity Reaction Status Date / Time acetaminophen [From Tylenol] AdvReac Rash Verified 06/13/17 08:00 ibuprofen AdvReac Rash Verified 06/13/17 08:00 Constitutional: Denies: fever, chills, weakness Eyes: Denies: vision change ENT ED: Denies: congestion Cardiovascular: Denies: chest pain Respiratory: Denies: cough, dyspnea Gastrointestinal: Denies: abdominal pain, nausea, vomiting, diarrhea Past Medical History - Past Medical History Medical history: Reports: COPD, HIV/AIDS, thyroid disease Surgical history: Reports: non-contributory, other Psychiatric history: Reports: anxiety, depression, prior suicide attempt, previous psychiatric hospitalization - Social History Smoking Status: Current every day smoker Smokeless Tobacco Status: No Alcohol use: Reports: recent Drug use: Reports: none, cocaine, opiates, IV Drug Use Physical Exam - General Limitations: altered mental status General appearance: alert Course Course Narrative: 0700: I have assumed care of this patient from Dr. Richardson, who in turn had assumed care of this patient from Dr. Short, shift stacker provider. Please see Dr. Short's documentation for care performed prior to my arrival. Briefly , this is a 47-year-old male that presented with suicidal behavior with attempt at self injury and suicidal ideations. The patient stated that he lost his son a month ago due to suicide. He stated that he cannot take it any longer and decided to relapse on alcohol. He attempted to inflict self-harm by lacerating both wrists with a razor blade. Wound closure was performed by Dr. Mcdonald, resident physician. We will obtain a repeat alcohol level and consult with inpatient psychiatry. 0910: I been notified by [facility], inpatient psychiatry that the psychiatrist quarry extraction worker will not admit the patient directly to the psychiatric unit for fear of alcohol withdrawal. The psychiatrist recommends admission to the hospitalist service prior to psychiatric admission for observation for signs of withdrawal.. 0935: I spoke with Dr. Griffin of the hospitalist services agreed to accept the patient for admission under his care. Dr. Wells, ED attending has been notified of this plan and is in agreement. The patient will go to a medical floor with a one-on-one sitter, pending formal psychiatric evaluation once medically cleared. Vital Signs Temperature 96.8 F L 06/12/17 23:24 Pulse Rate 87 06/12/17 23:24 Respiratory Rate 16 06/12/17 23:24 Blood Pressure 112/78 06/12/17 23:24 O2 Sat by Pulse Oximetry 96 06/12/17 23:24 Temperature 96.8 F L 06/12/17 23:24 Pulse Rate 88 06/13/17 08:56 Respiratory Rate 16 06/13/17 08:56 Blood Pressure 98/61 06/13/17 08:56 O2 Sat by Pulse Oximetry 98 06/13/17 08:56 Oxygen Delivery Oxygen Delivery Room Air Psych - Lab Data Result diagrams: 06/12/17 23:42 06/12/17 23:42 Lab Results 06/12/17 06/12/17 06/12/17 Range/Units 23:25 23:25 23:42 WBC 6.5 (4.3-11.1) K/mcL RBC 5.22 (4.19-5.50) M/mcL Hgb 17.1 H (12.9-16.9) g/dL Hct 47.7 (37.5-50.1) % MCV 91.4 (83.0-100.0) fL MCH 32.8 (28.0-33.3) pg MCHC 35.8 H (31.6-35.5) g/dL RDW 12.6 (11.5-14.5) % Plt Count 308 (140-400) K/mcL MPV 8.4 L (9.4-12.4) fL Immature Gran % 0.8 (0-4) % Seg Neutrophils % 56.0 % Lymphocytes % 36.8 % Monocytes % 5.2 % Eosinophils % 0.6 % Basophils % 0.6 % Neutrophils # 3.7 (1.6-8.9) K/mcL Lymphocytes # 2.4 (0.6-4.6) K/mcL Monocytes # 0.3 (0.0-1.3) K/mcL Eosinophils # 0.0 (0.0-0.6) K/mcL Basophils # 0.0 (0.0-0.2) K/mcL Sodium (136-145) mEq/L Potassium (3.5-5.1) mEq/L Chloride (98-107) mEq/L Carbon Dioxide (23-29) mEq/L BUN (6-20) mg/dL Creatinine (0.70-1.30) mg/dL Est GFR ( Amer) (> 60) Est GFR (Non-Af Amer) (> 60) BUN/Creatinine Ratio (6-26) Glucose (70-105) mg/dL Calculated Osmolality (280-300) Calcium (8.6-10.3) mg/dL Total Bilirubin (0.3-1.0) mg/dL Direct Bilirubin (0.0-0.2) mg/dL Indirect Bilirubin (0.0-1.2) mg/dL AST (13-39) Units/L ALT (7-52) Units/L Alkaline Phosphatase (34-104) Units/L Serum Total Protein (6.4-8.9) g/dL Albumin (3.5-5.7) g/dL Globulin (2.4-3.5) g/dL Albumin/Globulin Ratio (1.1-2.2) Urine Color Yellow (Yellow) Urine Clarity Clear (Clear) Urine pH 6.0 (5.0-8.0) pH Units Ur Specific [place] 1.013 (1.010-1.025) Urine Protein Negative (Neg-Trace) mg/dL Urine Glucose (UA) Normal (Normal) mg/dL Urine Ketones Negative (Negative) mg/dL Urine Blood Negative (Negative) Urine Nitrite Negative (Negative) Urine Bilirubin Negative (Negative) Urine Urobilinogen Normal (Normal) mg/dL Ur Leukocyte Esterase Negative (Negative) Salicylates (15.0-30.0) mg/dL Urine Opiates Screen Negative (Mquxxa=113) ng/mL Acetaminophen (10-30) mcg/mL Ur Barbiturates Screen Negative (Gbbinm=248) ng/mL Ur Phencyclidine Scrn Negative (Cutoff=25) ng/mL Ur Amphetamines Screen Negative (Caeltz=1173) ng/mL U Benzodiazepines Scrn Negative (Klvazn=607) ng/mL Urine Cocaine Screen Negative (Cutoff= 300) ng/mL U Marijuana (THC) Screen Negative (Cutoff = 50) ng/mL Ethyl Alcohol (0-10) mg/dL 06/12/17 06/13/17 Range/Units 23:42 06:58 WBC (4.3-11.1) K/mcL RBC (4.19-5.50) M/mcL Hgb (12.9-16.9) g/dL Hct (37.5-50.1) % MCV (83.0-100.0) fL MCH (28.0-33.3) pg MCHC (31.6-35.5) g/dL RDW (11.5-14.5) % Plt Count (140-400) K/mcL MPV (9.4-12.4) fL Immature Gran % (0-4) % Seg Neutrophils % % Lymphocytes % % Monocytes % % Eosinophils % % Basophils % % Neutrophils # (1.6-8.9) K/mcL Lymphocytes # (0.6-4.6) K/mcL Monocytes # (0.0-1.3) K/mcL Eosinophils # (0.0-0.6) K/mcL Basophils # (0.0-0.2) K/mcL Sodium 141 (136-145) mEq/L Potassium 4.4 (3.5-5.1) mEq/L Chloride 108 H (98-107) mEq/L Carbon Dioxide 27 (23-29) mEq/L BUN 8 (6-20) mg/dL Creatinine 0.65 L (0.70-1.30) mg/dL Est GFR ( Amer) > 60 (> 60) Est GFR (Non-Af Amer) > 60 (> 60) BUN/Creatinine Ratio 12 (6-26) Glucose 86 (70-105) mg/dL Calculated Osmolality 290 (280-300) Calcium 9.2 (8.6-10.3) mg/dL Total Bilirubin 0.5 (0.3-1.0) mg/dL Direct Bilirubin 0.1 (0.0-0.2) mg/dL Indirect Bilirubin 0.4 (0.0-1.2) mg/dL AST 28 (13-39) Units/L ALT 13 (7-52) Units/L Alkaline Phosphatase 77 (34-104) Units/L Serum Total Protein 8.2 (6.4-8.9) g/dL Albumin 4.7 (3.5-5.7) g/dL Globulin 3.5 (2.4-3.5) g/dL Albumin/Globulin Ratio 1.3 (1.1-2.2) Urine Color (Yellow) Urine Clarity (Clear) Urine pH (5.0-8.0) pH Units Ur Specific [place] (1.010-1.025) Urine Protein (Neg-Trace) mg/dL Urine Glucose (UA) (Normal) mg/dL Urine Ketones (Negative) mg/dL Urine Blood (Negative) Urine Nitrite (Negative) Urine Bilirubin (Negative) Urine Urobilinogen (Normal) mg/dL Ur Leukocyte Esterase (Negative) Salicylates < 5.0 L (15.0-30.0) mg/dL Urine Opiates Screen (Zsoisb=391) ng/mL Acetaminophen < 1.0 L (10-30) mcg/mL Ur Barbiturates Screen (Oetjhv=195) ng/mL Ur Phencyclidine Scrn (Cutoff=25) ng/mL Ur Amphetamines Screen (Snambw=9259) ng/mL U Benzodiazepines Scrn (Hxrpiz=813) ng/mL Urine Cocaine Screen (Cutoff= 300) ng/mL U Marijuana (THC) Screen (Cutoff = 50) ng/mL Ethyl Alcohol 219 H 61 H (0-10) mg/dL Psychiatric Medical Clearance - Medical Clearance Checklist Medical History: Suicidal ideation (Acute) Depression (Acute) Alcohol dependence (Chronic) Personality disorder (Chronic) Acute anxiety (Acute) Suicidal ideation (Acute) Alcohol withdrawal (Acute) Hyperthyroidism (Acute) HIV infection (Chronic) COPD (chronic obstructive pulmonary disease) (Chronic) Tobacco use (Chronic) Tachycardia (Acute) AIDS (acquired immune deficiency syndrome) (Acute) Malnutrition (Chronic) Low blood pressure reading (Acute) Acute exacerbation of chronic obstructive airways disease (Acute) HIV (human immunodeficiency virus infection) (Acute) Hyperthyroidism (Chronic) Pneumonia (Acute) Anxiety (Chronic) Visual floaters (Chronic) DVT prophylaxis (Acute) Major depress dis, severe (Acute) Bipolar 1 disorder (Acute) Suicidal behavior with attempted self-injury (Acute) Acute exacerbation of chronic obstructive airways disease (Inactive) Alcohol abuse (Inactive) Bronchitis (Inactive) Bronchitis (Inactive) Lumbar radiculopathy (Inactive) Strain of lumbar region (Inactive) No Social History Section defined Current Vitals: Last Vital Signs Temp 96.8 F L 06/12/17 23:24 Pulse 88 06/13/17 08:56 Resp 16 06/13/17 08:56 BP 98/61 06/13/17 08:56 Pulse Ox 98 06/13/17 08:56 Psychiatric Lab Panel: Drug Levels and Toxicity 06/12/17 06/12/17 06/13/17 23:25 23:42 06:58 Urine Opiates Screen Negative Acetaminophen < 1.0 L Ur Barbiturates Screen Negative Ur Phencyclidine Scrn Negative Ur Amphetamines Screen Negative U Benzodiazepines Scrn Negative Urine Cocaine Screen Negative U Marijuana (THC) Screen Negative Ethyl Alcohol 219 H 61 H Abnormal Labs: Abnormal lab results Hgb 17.1 g/dL (12.9-16.9) H 06/12/17 23:42 MCHC 35.8 g/dL (31.6-35.5) H 06/12/17 23:42 MPV 8.4 fL (9.4-12.4) L 06/12/17 23:42 Chloride 108 mEq/L (98-107) H 06/12/17 23:42 Creatinine 0.65 mg/dL (0.70-1.30) L 06/12/17 23:42 Salicylates < 5.0 mg/dL (15.0-30.0) L 06/12/17 23:42 Acetaminophen < 1.0 mcg/mL (10-30) L 06/12/17 23:42 Ethyl Alcohol 61 mg/dL (0-10) H 06/13/17 06:58 Statement of Medical Clearance: I have evaluated the patient, reviewed diagnostic information, and certify that the patient's medical condition is sufficiently stable that transfer to the psychiatric unit does not pose a significant risk of deterioration.
--- NOTE | 2017-06-13 09:14 | Emergency Department Note ---
START Narrative - START START: 47-year-old bleeding placement to a psychiatric facility. However, psychiatrist has reviewed the chart and requested patient be admitted medically for concerns of alcohol withdrawal. Then, after further medical clearance and they can transfer to a psychiatric braun
[2017-06-13] MEDS ORDERED: *HR* LORazepam 1 MG TABLET PO ONE (09:17)
[2017-06-13] MEDS ORDERED: MVI, adult with vitamin K 10 ML in 0.9 % Sodium Chloride 1,000 ML IVC ONE (09:26)
[2017-06-13] MEDS ORDERED: Thiamine (B-1) 100 MG in D5% in Water 50 ML IVPB ONE (09:26)
[2017-06-13] MEDS ORDERED: Folic Acid 1 MG in D5% in Water 50 ML IVPB ONE (09:26)
[2017-06-13] MEDS ORDERED: MVI, adult with vitamin K 10 ML, Folic Acid 1 MG, Thiamine (B-1) 100 MG in 0.9 % Sodi... IVC ONE (09:45)
[2017-06-13 09:53] LABS: Magnesium 2.1 mg/dL (1.6-2.6); Phosphorous 3.5 mg/dL (2.7-4.5)
[2017-06-13] MEDS ORDERED: *HR* LORazepam 2 MG/ML VIAL IVP PRN (09:56)
--- NOTE | 2017-06-13 10:04 | Internal Med History&Physical ---
Date of Encounter: 06/13/17 Time of Encounter: 10:01 Assessment and Plan (1) Suicide attempt Current visit: Yes Status: Acute Patient will be admitted with sitter at bedside and suicide precautions. Psychiatry evaluation. (2) Wrist contusion Current visit: Yes Status: Acute Patient has cut wound in his right wrist. Tetanus toxoid given. Empiric antibiotics with Bactrim. Qualifiers: Qualified Code(s): S60.219A - Contusion of unspecified wrist, initial encounter (3) HIV (human immunodeficiency virus infection) Current visit: Yes Status: Acute Patient is on antiretroviral therapy and follows up with specialist (4) Alcohol withdrawal Current visit: Yes Status: Acute Patient has been sober from alcohol for 2 months. He started drinking alcohol daily for the past week. 1/2 fifth every day. Patient started to have some shakes so psychiatry wanted admission to hospital 1st to see progress regarding alcohol withdrawal Qualifiers: Qualified Code(s): F10.239 - Alcohol dependence with withdrawal, unspecified Internal Medicine - H&P: HPI Chief complaint: suicide attempt History of present illness: Mr. Owen is a 47 year old male with a history of HIV, COPD presents the emergency room today after a suicide attempt. Patient cut his right wrist. Patient has been depressed recently after his son committed suicide. Patient denies any ingestion or overdose on any medications. Over the past week and after being sober for two-month patient started drinking alcohol excessively. He has been drinking about half a 5th every day. He started having some shakes in the emergency room so psychiatry wanted to admit to hospital for further evaluation because of concern about alcohol withdrawal Past Med Surg Social Fam HX - Past Medical History Medical history: COPD, HIV/AIDS, thyroid disease Psychiatric history: anxiety, depression, prior suicide attempt, previous psychiatric hospitalization - Past Surgical History Surgical History: non-contributory, other - Social History Smoking Status: Current every day smoker Smokeless Tobacco Status: No Alcohol use: recent Drug use: none, cocaine, opiates, IV Drug Use - Family History Mother Family Member Ethnicity: Non- Living Status: Hx Family Cardiac Disorders: No Hx Family Respiratory Disorders: No Hx Family Cancer: No Hx Family GI Disorders: No Hx Family Endocrine Disorder: No Hx Family Neuromuscular Disorders: No Hx Family Neurologic Disorders: No Hx Family HEENT Disorders: No Hx Family Autoimmune Disorders: No Father Adopted: No Family Member Ethnicity: Non- Living Status: Still Living Hx Family Cardiac Disorders: Yes (Tripple bipass X's 3) Hx Family Respiratory Disorders: No Hx Family Cancer: No Hx Family GI Disorders: No Hx Family Endocrine Disorder: No Hx Family Neuromuscular Disorders: No Hx Family Neurologic Disorders: No Hx Family HEENT Disorders: No Hx Family Autoimmune Disorders: No Internal Medicine - H&P: Meds Elviteg/Cob/Emtri/Tenof Alafen [Genvoya Tablet] 1 tab PO DAILY 02/25/17 [History ] Tramadol HCl [Ultram] 50 mg PO BID PRN 05/30/17 [History] Nicotine Patch [Nicoderm] 21 mg TD DAILY 30 Days #30 patch.td24 06/05/17 [Rx] hydrOXYzine pamoate [HydrOXYzine Pamoate] 25 mg PO TID PRN 30 Days #60 capsule 06/05/17 [Rx] traZODone [TraZODone] 50 mg PO HS PRN tablet 06/05/17 [Rx] 3 Allergy/AdvReac Type Severity Reaction Status Date / Time acetaminophen [From Tylenol] AdvReac Rash Verified 06/13/17 08:00 ibuprofen AdvReac Rash Verified 06/13/17 08:00 All Systems PM: A 10-system review of systems was performed and is negative for pertinent findings except as documented above in the HPI. Review of systems: 10 point review of systems is negative except for HPI - Constitutional Vitals: Temp Pulse Resp BP Pulse Ox 96.8 F L 88 18 108/68 98 06/12/17 23:24 06/13/17 08:56 06/13/17 09:47 06/13/17 09:47 06/13/17 08:56 Exam: Gen.: patient is alert oriented times 3 not in distress. Cardiac: normal S1 S2 no additional sounds are murmurs. Chest: clear to auscultation. Abdomen: soft nontender nondistended. Lower extremity no swelling mucous membranes: moist Hand: Cut wound in right wrist Internal Med - H&P Results - Labs CBC & Chem 7: 06/12/17 23:42 06/12/17 23:42
[2017-06-13] MEDS: *HR* Morphine 2 MG/ML SYRINGE IVP PRN ×2 (15:59→21:29)
[2017-06-13] MEDS: Famotidine 20 MG TABLET PO SCH (21:29)
[2017-06-13] MEDS: Sulfamethoxazole/Trimeth DS 1 EACH TABLET PO SCH (21:29)
[2017-06-14 06:40] LABS: Basophils % 0.6 %; Eosinophils # 0.2 K/mcL (0.0-0.6); Eosinophils % 2.6 %; Hematocrit 41.3 % (37.5-50.1); Immature Granulocytes % 0.3 % (0-4); Lymphocytes # 2.8 K/mcL (0.6-4.6); Lymphocytes % 40.1 %; Mean Corpuscular HGB Conc 36.1 g/dL (31.6-35.5); Mean Corpuscular Hemoglobin 33.5 pg (28.0-33.3); Mean Corpuscular Volume 92.8 fL (83.0-100.0); Mean Platelet Volume 9.3 fL (9.4-12.4); Monocytes # 0.6 K/mcL (0.0-1.3); Neutrophils # 3.3 K/mcL (1.6-8.9); Platelet Count 272 K/mcL (140-400); Red Blood Count 4.45 M/mcL (4.19-5.50); Red Cell Distribution Width 12.8 % (11.5-14.5); Segmented Neutrophils % 48.4 %
[2017-06-14 06:45] LABS: Hemoglobin 14.9 g/dL (12.9-16.9)
[2017-06-14 07:24] LABS: BUN/Creatinine Ratio 17 (6-26); Blood Urea Nitrogen 13 mg/dL (6-20); Calcium 8.6 mg/dL (8.6-10.3); Carbon Dioxide 26 mEq/L (23-29); Chloride 106 mEq/L (98-107); Glucose 88 mg/dL (70-105); Osmolality,Calculated 282 (280-300); Potassium 4.1 mEq/L (3.5-5.1); Sodium 136 mEq/L (136-145); eGFR For African Americans > 60 (> 60); eGFR For Non-African Americans > 60 (> 60)
[2017-06-14] MEDS: Nicotine 21 MG PATCH.TD24 TD SCH (09:43)
[2017-06-14] MEDS: Famotidine 20 MG TABLET PO SCH ×2 (09:43→20:14)
[2017-06-14] MEDS: Thiamine (B-1) 100 MG TABLET PO SCH (09:43)
[2017-06-14] MEDS: Sulfamethoxazole/Trimeth DS 1 EACH TABLET PO SCH ×2 (09:43→20:14)
[2017-06-14] MEDS: Folic Acid 1 MG TABLET PO SCH (09:43)
[2017-06-14] MEDS: *HR* LORazepam 2 MG/ML VIAL IVP PRN ×2 (09:51→20:15)
--- NOTE | 2017-06-14 12:31 | Consult Note ---
Date of Encounter: 06/14/17 Time of Encounter: 12:16 Assessment & Recommendation (1) Major depress dis, severe Current visit: No Status: Acute Assessment & Recommendation: Client recently on unit [facility] with similar presentation. Questionable historian. Alcohol dependence and chronic noncompliance with treatment. Has made suicidal gestures in past. Still claiming he is suicidal. Continue to treat medically and when stable can admit to inpatient psych. Has taken mental health medications in the past but due to noncompliance and alcohol withdrawal would not worry about restarting them yet. History of Present Illness Requesting Physician: Sujata Mahoney CNP Reason for consult: suicidal ideation History of present illness: Mr. Owen is a 47 year old male who presented to the hospital after he superficially cut his writs. One arm required sutures. Client states his son committed suicide a couple of weeks ago and that he just returned from the in [place] on Saturday. Claims his was handling the well but that his family was making him feel guilty. Recently on unit [facility] with similar story and staff unable to verify if it is true. No record of son in [place]. Long standing history of depression, antisocial personality disorder and alcohol dependence. States he is currently drinking a minimum of half a fifth a day. Reports mild withdrawal symptoms. No other drugs of abuse. HIV positive. PCP prescribes HIV and mental health medications. CC: Sujata Mahoney CNP Past Med Surg Social Fam HX - Past Medical History Medical history: COPD, HIV/AIDS, thyroid disease - Past Psychiatric History Psychiatric history: Reports: depression, prior suicide attempt, previous psychiatric hospitalization Family psychiatric history: Unknown Family History of Suicide: Unknown - Past Surgical History Surgical History: non-contributory, other - Social History Smoking Status: Current every day smoker Smokeless Tobacco Status: No Alcohol use: recent Drug use: none - Family History Mother Family Member Ethnicity: Non- Living Status: Hx Family Cardiac Disorders: No Hx Family Respiratory Disorders: No Hx Family Cancer: No Hx Family GI Disorders: No Hx Family Endocrine Disorder: No Hx Family Neuromuscular Disorders: No Hx Family Neurologic Disorders: No Hx Family HEENT Disorders: No Hx Family Autoimmune Disorders: No Father Adopted: No Family Member Ethnicity: Non- Living Status: Still Living Hx Family Cardiac Disorders: Yes (Tripple bipass X's 3) Hx Family Respiratory Disorders: No Hx Family Cancer: No Hx Family GI Disorders: No Hx Family Endocrine Disorder: No Hx Family Neuromuscular Disorders: No Hx Family Neurologic Disorders: No Hx Family HEENT Disorders: No Hx Family Autoimmune Disorders: No Medications & Allergies Elviteg/Cob/Emtri/Tenof Alafen [Genvoya Tablet] 1 tab PO DAILY 02/25/17 [History ] Tramadol HCl [Ultram] 50 mg PO BID PRN 05/30/17 [History] Nicotine Patch [Nicoderm] 21 mg TD DAILY 30 Days #30 patch.td24 06/05/17 [Rx] hydrOXYzine pamoate [HydrOXYzine Pamoate] 25 mg PO TID PRN 30 Days #60 capsule 06/05/17 [Rx] traZODone [TraZODone] 50 mg PO HS PRN tablet 06/05/17 [Rx] 3 Allergy/AdvReac Type Severity Reaction Status Date / Time acetaminophen [From Tylenol] AdvReac Rash Verified 06/13/17 08:00 ibuprofen AdvReac Rash Verified 06/13/17 08:00 Review of Systems Constitutional: Denies: fever, chills, weakness, weight change Eyes: Denies: eye pain, vision change Ears, Nose, Throat: Denies: ear pain, throat pain, dental pain, hearing loss, congestion Cardiovascular: Denies: chest pain, palpitations, dyspnea on exertion Respiratory: Denies: cough, dyspnea, wheezes Gastrointestinal: Denies: abdominal pain, nausea, vomiting, diarrhea, constipation Genitourinary male: Denies: urgency, dysuria, frequency, genital lesions Genitourinary female: Denies: urgency, dysuria, frequency, abnormal menses, dyspareunia Musculoskeletal: Denies: joint swelling, joint pain Integumentary: Denies: rash, lesions, pruritus Neurological: Denies: headache, weakness, numbness, memory loss Endocrine: Denies: fatigue, heat or cold intolerance Hematologic/Lymphatic: Denies: easy bruising, lymphadenopathy Allergic/Immunologic: Denies: urticaria, itchy eyes Mental Status Exam Patient orientation: Yes Person, Yes Time, Yes Place Level of alertness: Alert Patient appearance: Disheveled Behavior: calm, cooperative Psychomotor activity: Slowed Eye contact: Maintains Eye Contact Mood description: Depressed Affect description: congruent with mood Speech pattern: Normal rate, Normal rhythm, Normal tone Speech volume: Normal Thought process: Linear Thought content: Yes Suicidal ideation, No Homicidal ideation, No Overt delusions Perceptual disturbances: No Auditory hallucinations, No Visual hallucinations Attention span: Capable of Focused Attention Memory description: Grossly Intact Patient reliability: Not Reliable Historian Judgment: Limited Insight: Minimal Results - Vital Signs Vital signs: Temp Pulse Resp BP Pulse Ox 97.9 F 75 16 106/62 93 06/14/17 11:58 06/14/17 11:58 06/14/17 11:58 06/14/17 11:58 06/14/17 11:58 - Labs Labs: Laboratory Last Values WBC 6.9 K/mcL (4.3-11.1) 06/14/17 05:18 RBC 4.45 M/mcL (4.19-5.50) 06/14/17 05:18 Hgb 14.9 g/dL (12.9-16.9) D 06/14/17 05:18 Hct 41.3 % (37.5-50.1) 06/14/17 05:18 MCV 92.8 fL (83.0-100.0) 06/14/17 05:18 MCH 33.5 pg (28.0-33.3) H 06/14/17 05:18 MCHC 36.1 g/dL (31.6-35.5) H 06/14/17 05:18 RDW 12.8 % (11.5-14.5) 06/14/17 05:18 Plt Count 272 K/mcL (140-400) 06/14/17 05:18 MPV 9.3 fL (9.4-12.4) L 06/14/17 05:18 Immature Gran % 0.3 % (0-4) 06/14/17 05:18 Seg Neutrophils % 48.4 % 06/14/17 05:18 Lymphocytes % 40.1 % 06/14/17 05:18 Monocytes % 8.0 % 06/14/17 05:18 Eosinophils % 2.6 % 06/14/17 05:18 Basophils % 0.6 % 06/14/17 05:18 Neutrophils # 3.3 K/mcL (1.6-8.9) 06/14/17 05:18 Lymphocytes # 2.8 K/mcL (0.6-4.6) 06/14/17 05:18 Monocytes # 0.6 K/mcL (0.0-1.3) 06/14/17 05:18 Eosinophils # 0.2 K/mcL (0.0-0.6) 06/14/17 05:18 Basophils # 0.0 K/mcL (0.0-0.2) 06/14/17 05:18 Sodium 136 mEq/L (136-145) 06/14/17 05:18 Potassium 4.1 mEq/L (3.5-5.1) 06/14/17 05:18 Chloride 106 mEq/L (98-107) 06/14/17 05:18 Carbon Dioxide 26 mEq/L (23-29) 06/14/17 05:18 BUN 13 mg/dL (6-20) 06/14/17 05:18 Creatinine 0.75 mg/dL (0.70-1.30) 06/14/17 05:18 Est GFR ( Amer) > 60 (> 60) 06/14/17 05:18 Est GFR (Non-Af Amer) > 60 (> 60) 06/14/17 05:18 BUN/Creatinine Ratio 17 (6-26) 06/14/17 05:18 Glucose 88 mg/dL (70-105) 06/14/17 05:18 Calculated Osmolality 282 (280-300) 06/14/17 05:18 Calcium 8.6 mg/dL (8.6-10.3) 06/14/17 05:18 Phosphorus 3.5 mg/dL (2.7-4.5) 06/13/17 06:58 Magnesium 2.0 mg/dL (1.6-2.6) 06/14/17 05:18 Total Bilirubin 0.5 mg/dL (0.3-1.0) 06/12/17 23:42 Direct Bilirubin 0.1 mg/dL (0.0-0.2) 06/12/17 23:42 Indirect Bilirubin 0.4 mg/dL (0.0-1.2) 06/12/17 23:42 AST 28 Units/L (13-39) 06/12/17 23:42 ALT 13 Units/L (7-52) 06/12/17 23:42 Alkaline Phosphatase 77 Units/L (34-104) 06/12/17 23:42 Serum Total Protein 8.2 g/dL (6.4-8.9) 06/12/17 23:42 Albumin 4.7 g/dL (3.5-5.7) 06/12/17 23:42 Globulin 3.5 g/dL (2.4-3.5) 06/12/17 23:42 Albumin/Globulin Ratio 1.3 (1.1-2.2) 06/12/17 23:42 Urine Color Yellow (Yellow) 06/12/17 23:25 Urine Clarity Clear (Clear) 06/12/17 23:25 Urine pH 6.0 pH Units (5.0-8.0) 06/12/17 23:25 Ur Specific [place] 1.013 (1.010-1.025) 06/12/17 23:25 Urine Protein Negative mg/dL (Neg-Trace) 06/12/17 23:25 Urine Glucose (UA) Normal mg/dL (Normal) 06/12/17 23:25 Urine Ketones Negative mg/dL (Negative) 06/12/17 23:25 Urine Blood Negative (Negative) 06/12/17 23:25 Urine Nitrite Negative (Negative) 06/12/17 23:25 Urine Bilirubin Negative (Negative) 06/12/17 23:25 Urine Urobilinogen Normal mg/dL (Normal) 06/12/17 23:25 Ur Leukocyte Esterase Negative (Negative) 06/12/17 23:25 Salicylates < 5.0 mg/dL (15.0-30.0) L 06/12/17 23:42 Urine Opiates Screen Negative ng/mL (Gwluqx=244) 06/12/17 23:25 Acetaminophen < 1.0 mcg/mL (10-30) L 06/12/17 23:42 Ur Barbiturates Screen Negative ng/mL (Fjdvzr=246) 06/12/17 23:25 Ur Phencyclidine Scrn Negative ng/mL (Cutoff=25) 06/12/17 23:25 Ur Amphetamines Screen Negative ng/mL (Jevxbd=7582) 06/12/17 23:25 U Benzodiazepines Scrn Negative ng/mL (Paarzd=670) 06/12/17 23:25 Urine Cocaine Screen Negative ng/mL (Cutoff= 300) 06/12/17 23:25 U Marijuana (THC) Screen Negative ng/mL (Cutoff = 50) 06/12/17 23:25 Ethyl Alcohol 61 mg/dL (0-10) H 06/13/17 06:58 Consult Discharge Plan - Plan Referrals: Ludin Vieyar MD [Primary Care Provider] -
--- NOTE | 2017-06-14 15:45 | Internal Med Progress Note ---
Date of Encounter: 06/14/17 Time of Encounter: 08:50 - Assessment and plan (1) Suicide attempt Current Visit: Yes Status: Chronic Assessment and plan: Attempted suicide yesterday by lacerating wrists. He has intact sutures with no bleeding, redness, or drainage. He should not has multiple scars on his arms from prior episodes of cutting. Pt states that he has been depressed since his son committed suicide. Pt has a sitter. He has been evaluated by psychiatrist and will be admitted to 1A after medically clear. Continue sitter (2) Wrist contusion Current Visit: Yes Status: Acute Assessment and plan: Pt with laceration and sutures to right wrist. No bleeding, redness, drainage. Td given in ER. Pt is being treated empirically with Bactrim. Sutures out in 7-10 days. Qualifiers: Qualified Code(s): S60.219A - Contusion of unspecified wrist, initial encounter (3) HIV (human immunodeficiency virus infection) Current Visit: Yes Status: Acute Assessment and plan: PT is on antiretrovirals, follows with PCP in [place]. (4) Alcohol withdrawal Current Visit: Yes Status: Acute Assessment and plan: Pt reports no ETOH for 2 months, states that for the last week he has been drinking on half of 1/5 of alcohol daily. Pt was admitted to monitor for withdrawl symptoms and is on [facility] protocol prn. Pt will go to 1A after medically cleared. Qualifiers: Qualified Code(s): F10.239 - Alcohol dependence with withdrawal, unspecified - Time Spent With Patient less than 15 minutes - Subjective Interval history: Patient was seen and assessed at bedside 8:50 AM. He is alert, pleasant, answers questions appropriately. Reports nonproductive cough for one week. He is requesting a nicotine patch. Right wrist wound is healing well, he reports pain to site. He also states that he is doing well with withdrawl symptoms and staes that he is shaking much less than he normally does. He denies continued suicidal or homicidal ideations. He denies any headache, chest pain or shortness of breath. He denies nausea, vomiting, diarrhea or abdominal pain. - Constitutional Vitals: Temp Pulse Resp BP Pulse Ox 97.9 F 75 16 106/62 93 06/14/17 11:58 06/14/17 11:58 06/14/17 11:58 06/14/17 11:58 06/14/17 11:58 General appearance: Present: A&O X 3, pleasant, severe distress, answers questions appropriately - Head Head exam: Present: atraumatic, normal inspection, normocephalic - Eye Eye exam: Present: normal appearance, conjuntiva pink, sclera anicteric - Neck Neck exam general surgery: Present: supple, trachea midline. Absent: lymphadenopathy - Respiratory Respiratory exam: Present: CTAB. Absent: accessory muscle use, rales, rhonchi, wheezes - Cardiovascular Cardiovascular exam: Present: RRR, +S1, +S2. Absent: diastolic murmur, gallop, rubs, systolic murmur - GI/Abdominal GI/Abdominal exam: Present: normal bowel sounds, soft, tenderness, no peritoneal signs. Absent: distended, hepatomegaly - Extremities Exam Extremities exam: Present: normal capillary refill, warm, radial pulses palpable and symmetrical. Absent: calf tenderness, cyanotic, pedal edema, tenderness - Neurological Exam Neurological exam: Present: alert, oriented X3, no focal deficits, pronater drift. Absent: facial droop, speech deficit - Skin Skin exam: Present: dry, intact, normal color, warm. Absent: rash Internal Medicine: Result - Labs CBC & Chem 7: 06/14/17 05:18 06/14/17 05:18 Labs: Short CBC 06/14/17 Range/Units 05:18 WBC 6.9 (4.3-11.1) K/mcL Hgb 14.9 D (12.9-16.9) g/dL Hct 41.3 (37.5-50.1) % Plt Count 272 (140-400) K/mcL Neutrophils # 3.3 (1.6-8.9) K/mcL BMP 06/14/17 05:18 Sodium 136 Potassium 4.1 Chloride 106 Carbon Dioxide 26 BUN 13 Creatinine 0.75 Glucose 88 Calcium 8.6 - VTE Documentation of Mechanical Device: Intermittent pneumatic compression device Consult Discharge Plan - Plan Referrals: Ludin Vieyra MD [Primary Care Provider] -
[2017-06-14] MEDS: [UNRECOGNIZED DRUG - OTHER] PO SCH (18:20)
[2017-06-14] MEDS: *HR* Morphine 2 MG/ML SYRINGE IVP PRN (20:20)
[2017-06-15] MEDS: *HR* LORazepam 2 MG/ML VIAL IVP PRN (04:50)
[2017-06-15] MEDS: Nicotine 21 MG PATCH.TD24 TD SCH (08:28)
[2017-06-15] MEDS: Famotidine 20 MG TABLET PO SCH ×2 (08:29→21:18)
[2017-06-15] MEDS: Folic Acid 1 MG TABLET PO SCH (08:29)
[2017-06-15] MEDS: Sulfamethoxazole/Trimeth DS 1 EACH TABLET PO SCH ×2 (08:29→21:18)
[2017-06-15] MEDS: Thiamine (B-1) 100 MG TABLET PO SCH (08:29)
[2017-06-15] MEDS: [UNRECOGNIZED DRUG - OTHER] PO SCH (08:33)
[2017-06-15] MEDS: *HR* Morphine 2 MG/ML SYRINGE IVP PRN ×2 (15:21→21:18)
--- NOTE | 2017-06-15 19:39 | Internal Med Progress Note ---
Date of Encounter: 06/15/17 Time of Encounter: 15:00 - Assessment and plan (1) Suicide attempt Current Visit: Yes Status: Chronic Assessment and plan: Attempted suicide by lacerating wrists. Evaluated by Psychiatry who recommended inpatient psych once medically stable. Plan to transfer to 1 A once out of alcohol withdrawal. Cont empiric Bactrim for wrist laceration. Cont 1:1 sitter (2) Alcohol withdrawal Current Visit: Yes Status: Acute Assessment and plan: reports no Etoh intake for the last 2 months until this last week. Patient states he has been drinking on half of 1/5 of alcohol daily for the last week. BAL 219 on arrival. Cont to monitor with CIWA Qualifiers: Complication of substance-induced condition: with unspecified complication Qualified Code(s): F10.239 - Alcohol dependence with withdrawal, unspecified (3) AIDS (acquired immune deficiency syndrome) Current Visit: No Status: Acute Assessment and plan: per hx. Managed per ID in [place]. Cont home antiretrovirals. (4) Depression Current Visit: No Status: Acute Assessment and plan: per hx. Now with suicide attempt as noted above. Plan to transfer to inpatient psych once medically stable Qualifiers: Depression Type: major depressive disorder Major depression recurrence: recurrent Active/Remission status: currently active Major depression episode severity: severe Psychotic features: without psychotic features Qualified Code(s): F33.2 - Major depressive disorder, recurrent severe without psychotic features (5) DVT prophylaxis Current Visit: No Status: Acute Assessment and plan: heparin - Subjective Interval history: Seen and examined at bedside, patient is new to me. Informnation obtained from chart review and patient report. Says he feels like he is in "a little withdrawal". Feels anxious and wants a beer. Still actively suicidal on my exam. - Constitutional Vitals: Temp Pulse Resp BP Pulse Ox 98 F 79 16 111/75 96 06/15/17 16:30 06/15/17 16:30 06/15/17 16:30 06/15/17 16:30 06/15/17 16:30 General appearance: Present: A&O X 3, pleasant, answers questions appropriately - Head Head exam: Present: atraumatic, normocephalic - Eye Eye exam: Present: PERRL, conjuntiva pink, sclera anicteric Pupils: Present: PERRL - Neck Neck exam general surgery: Present: supple, trachea midline. Absent: lymphadenopathy - Respiratory Respiratory exam: Present: CTAB. Absent: accessory muscle use, rales, rhonchi, wheezes - Cardiovascular Cardiovascular exam: Present: RRR, +S1, +S2. Absent: diastolic murmur, gallop, rubs, systolic murmur - GI/Abdominal GI/Abdominal exam: Present: normal bowel sounds, soft, no peritoneal signs. Absent: distended, tenderness - Extremities Exam Extremities exam: Present: warm, radial pulses palpable and symmetrical. Absent : calf tenderness, cyanotic, pedal edema - Neurological Exam Neurological exam: Present: CN II-XII intact, oriented X3, no focal deficits. Absent: pronater drift, facial droop, speech deficit - Skin Skin exam: Present: dry, intact Additional comments: bilateral wrist lacerations with sutures intact. No s/sx infection Internal Medicine: Result - Labs CBC & Chem 7: 06/14/17 05:18 06/14/17 05:18 - VTE Documentation of Mechanical Device: Intermittent pneumatic compression device Consult Discharge Plan - Plan Referrals: Ludin Vieyra MD [Primary Care Provider] -
[2017-06-15] MEDS: *HR* Heparin 5,000 UNIT/ML VIAL SQ SCH (21:21)
[2017-06-16] MEDS: *HR* Heparin 5,000 UNIT/ML VIAL SQ SCH ×2 (04:54→15:13)
[2017-06-16] MEDS: *HR* Morphine 2 MG/ML SYRINGE IVP PRN ×3 (04:58→20:37)
[2017-06-16] MEDS: Thiamine (B-1) 100 MG TABLET PO SCH (09:27)
[2017-06-16] MEDS: Sulfamethoxazole/Trimeth DS 1 EACH TABLET PO SCH ×2 (09:27→20:36)
[2017-06-16] MEDS: Nicotine 21 MG PATCH.TD24 TD SCH (09:27)
[2017-06-16] MEDS: Folic Acid 1 MG TABLET PO SCH (09:27)
[2017-06-16] MEDS: Famotidine 20 MG TABLET PO SCH ×2 (09:27→20:36)
[2017-06-16] MEDS: [UNRECOGNIZED DRUG - OTHER] PO SCH (12:18)
--- NOTE | 2017-06-16 13:21 | Internal Med Progress Note ---
Date of Encounter: 06/16/17 Time of Encounter: 12:30 - Assessment and plan (1) Suicide attempt Current Visit: Yes Status: Chronic Assessment and plan: Attempted suicide by lacerating wrists. Evaluated by Psychiatry who recommended inpatient psych once medically stable. Plan to transfer to mental health unit once medically clear. Cont empiric Bactrim for wrist laceration. Sitter at bedside. (2) Wrist contusion Current Visit: Yes Status: Acute Assessment and plan: Pt with laceration and sutures to right wrist. No bleeding, redness, drainage. Td given in ER. Pt is being treated empirically with Bactrim. Sutures out in 4-7 more days. Qualifiers: Qualified Code(s): S60.219A - Contusion of unspecified wrist, initial encounter (3) HIV (human immunodeficiency virus infection) Current Visit: Yes Status: Acute Assessment and plan: PT is on antiretrovirals, follows with PCP in [place]. Follow up after discharge. (4) Alcohol withdrawal Current Visit: Yes Status: Acute Assessment and plan: Pt reports no ETOH for 2 months, states that for the last week he has been drinking on half of 1/5 of alcohol daily. Pt was admitted to monitor for withdrawl symptoms and is on CIWA protocol prn. No Ativan since yesterday a.m. Pt will go to 1A after medically cleared. Qualifiers: Qualified Code(s): F10.239 - Alcohol dependence with withdrawal, unspecified - Time Spent With Patient less than 15 minutes - Subjective Interval history: Patient was seen and assessed at bedside 1230 PM. He is alert, pleasant, answers questions appropriately. Reports cough improved. Right wrist wound is healing well, he reports pain to site. He also states that he is doing well with withdrawl symptoms and states that he has not used Ativan for withdrawl. He denies continued suicidal or homicidal ideations. He denies any headache, chest pain or shortness of breath. He denies nausea, vomiting, diarrhea or abdominal pain. - Constitutional Vitals: Temp Pulse Resp BP Pulse Ox 97.5 F L 71 16 99/62 98 06/16/17 12:30 06/16/17 12:30 06/16/17 12:30 06/16/17 12:30 06/16/17 12:30 General appearance: Present: cachectic, A&O X 3, pleasant, no acute distress, answers questions appropriately - Head Head exam: Present: atraumatic, normal inspection, normocephalic - Eye Eye exam: Present: normal appearance, conjuntiva pink, sclera anicteric - Neck Neck exam general surgery: Present: normal inspection, supple, trachea midline. Absent: lymphadenopathy, tenderness - Respiratory Respiratory exam: Present: decreased breath sounds, CTAB. Absent: accessory muscle use, rales, rhonchi, wheezes - Cardiovascular Cardiovascular exam: Present: RRR, +S1, +S2. Absent: diastolic murmur, gallop, rubs, systolic murmur - GI/Abdominal GI/Abdominal exam: Present: normal bowel sounds, soft, no peritoneal signs. Absent: distended, hepatomegaly, tenderness - Extremities Exam Extremities exam: Present: normal capillary refill, warm, radial pulses palpable and symmetrical. Absent: calf tenderness, cyanotic, normal inspection , pedal edema, tenderness - Neurological Exam Neurological exam: Present: alert, oriented X3, no focal deficits. Absent: facial droop, speech deficit - Skin Skin exam: Present: dry, intact, normal color, warm. Absent: rash Internal Medicine: Result - Labs CBC & Chem 7: 06/16/17 05:35 06/14/17 05:18 Labs: Short CBC 06/16/17 Range/Units 05:35 Hgb 15.1 (12.9-16.9) g/dL - VTE Documentation of Mechanical Device: Intermittent pneumatic compression device Consult Discharge Plan - Plan Referrals: Ludin Vieyra MD [Primary Care Provider] -
--- NOTE | 2017-06-16 14:31 | Psychiatry Progress Note ---
Date of Encounter: 06/16/17 Time of Encounter: 14:28 Subjective Interval history: Client continues to endorse SI to this handbook writer. However, he has denied it to other providers. Vacillates as to what he thinks his needs are. Suspect some antisocial behavior plays into this. Given that he engaged in serious self injury will continue to recommend an inpatient mental health assessment once medically stable. Review of Systems Constitutional: Denies: fever, chills, weakness, weight change Eyes: Denies: eye pain, vision change Ears, Nose, Throat: Denies: ear pain, throat pain, dental pain, hearing loss, congestion Cardiovascular: Denies: chest pain, palpitations, dyspnea on exertion Respiratory: Denies: cough, dyspnea, wheezes Gastrointestinal: Denies: abdominal pain, nausea, vomiting, diarrhea, constipation Musculoskeletal: Denies: joint swelling, joint pain Neurological: Denies: headache, weakness, numbness, memory loss Objective: Exam Patient orientation: Yes Person, Yes Time, Yes Place Level of alertness: Alert Patient appearance: Appropriate Behavior: calm, cooperative Psychomotor activity: Normal Eye contact: Maintains Eye Contact Mood description: Depressed Affect description: blunted Speech pattern: Normal rate, Normal rhythm, Normal tone Speech volume: Normal Thought process: Linear Thought content: Yes Suicidal ideation, No Homicidal ideation, No Overt delusions Perceptual disturbances: No Auditory hallucinations, No Visual hallucinations Judgment: Limited Insight: Partial Results - Vital Signs Vital Signs: Temp Pulse Resp BP Pulse Ox 97.5 F L 71 16 99/62 98 06/16/17 12:30 06/16/17 12:30 06/16/17 12:30 06/16/17 12:30 06/16/17 12:30 - Labs Labs: Laboratory Results - last 24 hr 06/16/17 05:35 Hgb 15.1 Assessment and Plan (1) Major depress dis, severe Current visit: No Status: Acute Plan: Continue hospitalization, Close observation, Suicide Precautions per unit protocol, Encourage participation in unit milieu, Group Therapy, Monitor sleep, Monitor appetite Risks, benefits, side effects, alternatives discussed w/pt: Yes Patient agreeable to treatment: Yes Consult Discharge Plan - Plan Referrals: Ludin Vieyra MD [Primary Care Provider] -
--- NOTE | 2017-06-16 18:49 | Event Note ---
Date of Encounter: 06/16/17 Time of Encounter: 18:46 I evaluated the patient at the nurse's request. He says his appetite is declining. His emotional state is depressed. he admits to having had suicidal ideation in the recent past and admits to attempt to commit suicide by slashing his right wrist. currently he says he is unsure if he would do anything to hurt himself. On exam he is calm and cooperative heart is regular lungs are clear. He is awake alert and oriented 3. There is a linear wound on the right wrist closed with maria alejandra, no bleeding or erythema surrounding it. Plan: I will sign his pink slip for emergency inpatient psychiatric hospitalization. He remains at very high suicidal risk.
[2017-06-16 19:03] VITALS: BP 104/55
--- NOTE | 2017-06-16 20:08 | Discharge Summary ---
<Mynor Pittman - Last Filed: 06/16/17 20:32> Date of Encounter: 06/16/17 Time of Encounter: 20:06 - Discharge Diagnosis (1) Suicidal ideation Priority: Primary Status: Acute (2) Depression Priority: Secondary Status: Acute Qualifiers: Depression Type: major depressive disorder Major depression recurrence: recurrent Active/Remission status: currently active Major depression episode severity: severe Psychotic features: without psychotic features Qualified Code(s): F33.2 - Major depressive disorder, recurrent severe without psychotic features (3) HIV infection Priority: Secondary Status: Chronic (4) COPD (chronic obstructive pulmonary disease) Priority: Secondary Status: Chronic Qualifiers: COPD type: chronic bronchitis Chronic bronchitis type: simple Qualified Code(s): J41.0 - Simple chronic bronchitis (5) Polysubstance abuse Priority: Secondary Status: Acute - Discharge Medications Prescriptions: Sulfamethoxazole/Trimeth DS [Bactrim Ds] 1 each PO BID #18 tablet Home Medications: Elviteg/Cob/Emtri/Tenof Alafen [Genvoya Tablet] 1 tab PO DAILY 02/25/17 [History ] Tramadol HCl [Ultram] 50 mg PO BID PRN 05/30/17 [History] Nicotine Patch [Nicoderm] 21 mg TD DAILY 30 Days #30 patch.[id number] 06/05/17 [Rx] hydrOXYzine pamoate [HydrOXYzine Pamoate] 25 mg PO TID PRN 30 Days #60 capsule 06/05/17 [Rx] traZODone [TraZODone] 50 mg PO HS PRN tablet 06/05/17 [Rx] Famotidine [Pepcid] 20 mg PO BID tablet 06/16/17 [Rx] Folic Acid 1 mg PO DAILY tablet 06/16/17 [Rx] Sulfamethoxazole/Trimeth DS [Bactrim Ds] 1 each PO BID #18 tablet 06/16/17 [Rx] Thiamine (B-1) [Vitamin B-1] 100 mg PO DAILY tablet 06/16/17 [Rx] Allergies/Adverse Reactions: 3 Allergy/AdvReac Type Severity Reaction Status Date / Time acetaminophen [From Tylenol] AdvReac Rash Verified 06/13/17 08:00 ibuprofen AdvReac Rash Verified 06/13/17 08:00 Date of admission: 06/13/17 09:43 Primary care physician: Ludin Vieyra MD Consults: 06/13/17 09:56 Consult to Medicaid Billing Clerk [CONS] Routine Reason for SW Consult: chemical dependency 06/13/17 15:36 Consult to Psychiatry [CONS] Routine Consulting Provider: Payton Riggins Reason for Consult: SI Call Completed: Yes Discharging clinician: Mynor Pittman Anticipated date of discharge: 06/16/17 - Patient Status Disposition: Transfer Psychiatric Hosp Condition: Fair Overall status at discharge: patient is not back to baseline - Discharge Instructions Follow Up With: Ludin Vieyra MD [Primary Care Provider] - Additional Instructions: Patient should continue Bactrim DS for a total duration of 10 days. Patient will require close follow-up with primary care physician following discharge from psychiatric institution. - Diet and Activity Activity: increase activity as tolerated Diet: advance to your usual diet Interval History: Patient remains depressed and suicidal. He states that he has had trouble sleeping without his "normal meds" and he has had a mild headache. No other acute complaints. Hospital course: Mr. Owen is a 47 year old male with history of HIV, COPD, thyroid disease, polysubstance abuse, multiple suicidal attempts and multiple admissions for suicidal ideations who presented to the ED after unsuccessful suicide attempt. The patient had a laceration to his right forearm that was self-inflicted and attempt to take his life. That was treated with sutures at the time as well as oral Bactrim. The patient was recently treated for similar situations when his son apparently committed suicide while on the phone with him in early May, at which time he required admission to the psychiatric floor. During this admission, the patient did admit to recent relapse with alcohol and has been drinking over the past week. The patient was placed on a CIWA protocol and did not require use of Ativan due to continually low scores. The patient did remain depressed and required a pink slip for involuntary psychiatric hold. Psychiatry was consulted and determined that the patient would most benefit from inpatient psychiatric treatment following medical clearance. The patient remains medically stable, and right arm wound is healing appropriately. He continues to express suicidal ideations. He will require continued oral antibiotics for risk of skin infection, however he is medically clear for discharge to psychiatric facility. - Time Spent with Patient Total time spent providing and/or coordinating discharge services: Less than 30 minutes - Constitutional Vitals: Temp Pulse Resp BP Pulse Ox 98.2 F 66 16 104/55 97 06/16/17 19:02 06/16/17 19:02 06/16/17 19:02 06/16/17 19:02 06/16/17 19:02 General appearance: Present: cachectic, A&O X 3, pleasant, no acute distress, answers questions appropriately Exam: Gen.: Vitals noted. No acute distress. AAOx3 HEENT: PERRL/EOMI, oropharynx clear, Normocephalic, atraumatic Neck: Supple. No adenopathy. Cardiac: RRR, no murmur, +S1/S2 Pulmonary: CTA bilaterally, no wheezes, rales or rhonchi, equal chest expansion Abdomen: soft, nontender, BS noted, no guarding Back: Nontender throughout. MSK: ROM intact, no joint swelling noted Extremities: no BLE edema, nontender calf, no cyanosis or clubbing. Forearms demonstrate numerous healed scars of self-inflicted lacerations. Right wrist demonstrates new laceration with sutures that is healing appropriately. Neuro: A&Ox3, moves all extremities, no focal deficits Psych: Depressed mood, flat affect. Denies hallucinations or delusions. Continued suicidal ideations. - VTE Documentation of Mechanical Device: Intermittent pneumatic compression device <Isidro Campbell - Last Filed: 07/09/17 08:17> Date of Encounter: 06/16/17 Time of Encounter: 18:00 Date of admission: 06/13/17 09:43 Primary care physician: Ludin Vieyra MD Consults: 06/13/17 09:56 Consult to Medicaid Billing Clerk [CONS] Routine Reason for SW Consult: chemical dependency 06/13/17 15:36 Consult to Psychiatry [CONS] Routine Consulting Provider: Psychiatry Vaishnavi Reason for Consult: SI Call Completed: Yes Hospital course: Mr. Owen is a 47 year old male - Time Spent with Patient Total time spent providing and/or coordinating discharge services: - Constitutional Vitals: Temp Pulse Resp BP Pulse Ox 98.2 F 66 16 104/55 97 06/16/17 19:02 06/16/17 19:02 06/16/17 19:02 06/16/17 19:02 06/16/17 19:02 General appearance: Present: A&O X 3, no acute distress, answers questions appropriately - Extremities Exam Additional comments: Right wrist laceration closed with sutures, appears to be healing well, no surrounding erythema, no bleeding or discharge. - Attending Attestation I examined this patient and my medical decision-making was reviewed with the Resident Physician, Dr Pittman. I agree with the documented findings, disposition and treatment plan as described. The patient continues to express suicidal ideation during my visit. He is at high risk for self-harm given previous suicidal attempts and severe depression. He will be transferred to inpatient psychiatric facility.
--- NOTE | 2017-06-16 20:34 | Physician Discharge Referral ---
ExtendedCare Referral Info Transfer To: [facility] Provider in Charge: Toya Provider in Charge after Transfer: Other (Psychiatrist on duty) Institutional Level of Care: Skilled - Diagnosis (1) Suicidal ideation Priority: Primary Status: Acute (2) Depression Priority: Secondary Status: Acute (3) HIV infection Priority: Secondary Status: Chronic (4) COPD (chronic obstructive pulmonary disease) Priority: Secondary Status: Chronic (5) Polysubstance abuse Priority: Secondary Status: Acute Expected Duration of Placement: Unknown Prognosis: Fair Aware of Diagnosis: Patient Aware of Prognosis: Patient - Transfer Medications Prescriptions: Sulfamethoxazole/Trimeth DS [Bactrim Ds] 1 each PO BID #18 tablet Home Medications: Elviteg/Cob/Emtri/Tenof Alafen [Genvoya Tablet] 1 tab PO DAILY 02/25/17 [History ] Tramadol HCl [Ultram] 50 mg PO BID PRN 05/30/17 [History] Nicotine Patch [Nicoderm] 21 mg TD DAILY 30 Days #30 patch.[id number] 06/05/17 [Rx] hydrOXYzine pamoate [HydrOXYzine Pamoate] 25 mg PO TID PRN 30 Days #60 capsule 06/05/17 [Rx] traZODone [TraZODone] 50 mg PO HS PRN tablet 06/05/17 [Rx] Famotidine [Pepcid] 20 mg PO BID tablet 06/16/17 [Rx] Folic Acid 1 mg PO DAILY tablet 06/16/17 [Rx] Sulfamethoxazole/Trimeth DS [Bactrim Ds] 1 each PO BID #18 tablet 06/16/17 [Rx] Thiamine (B-1) [Vitamin B-1] 100 mg PO DAILY tablet 06/16/17 [Rx] Allergies/Adverse Reactions: 3 Allergy/AdvReac Type Severity Reaction Status Date / Time acetaminophen [From Tylenol] AdvReac Rash Verified 06/13/17 08:00 ibuprofen AdvReac Rash Verified 06/13/17 08:00 - Respiratory Orders Smoking Cessation: Smoking cessation has been advised. For more information, call the [place] Tobacco Quit Line at 5-155-RXSX-NOW. CERTIFICATION: I certify that the transfer of the above named patient to an Extended Care Facility is necessary for the continuing treatment of the diagnosis listed. The above information is true and accurate reflection of patient's current condition. Confidential - Redisclosure prohibited without a patient's written consent.
== END 2017-06-16 20:54 ==
LOC: EMEROO 23:18 → 3BNU 23:18
PROVIDERS: ADMIT Hospitalist; ATTEND Registered Nurse